=== PATIENT | female | born 1940 | race Caucasian/White ===

== ENCOUNTER 2017-02-03 12:05 | Outpatient (RCR) | payer MEDICARE, MEDICAID ==
[~2017-02-03 12:05] MED LIST: ALLO100T PO; AMLO10TA2 PO; ASPI-983 PO; ATOR40TA70 PO; CLON0.5T3 PO; FURO-125 PO; LEVO88TA54 PO; OLME20TA22 PO; OXYC-471 PO; PANT40TA3 PO; TRAM50TA2 PO; [UNRECOGNIZED DRUG - CODE] PO
[2017-02-03 12:26] LABS: BILIRUBIN,URINE NEGATIVE (NEGATIVE); KETONES,URINE NEGATIVE (NEGATIVE); LEUKOCYTE ESTERASE ,URINE 2+ (NEGATIVE); NITRITE,URINE NEGATIVE (NEGATIVE); PH,URINE 5 (5-9); PROTEIN,URINE NEGATIVE (NEGATIVE); UROBILINOGEN,URINE NORMAL (NORMAL)
== END 2017-03-11 | disposition home or self-care (01) ==
LOC: LAB 12:05
PROVIDERS: ATTEND Family Medicine
DX: N39.0 Urinary tract infection, site not specified (principal)
CPT/HCPCS: 81000

== ENCOUNTER → 2017-02-16 | Outpatient (CLI) | payer MEDICARE, MEDICAID | LOC: LAB 14:23 | PROVIDERS: ATTEND Family Medicine | DX: N39.0 Urinary tract infection, site not specified (principal) | CPT/HCPCS: 87088 ==

== ENCOUNTER 2018-12-05 11:00 | Outpatient (CLI) | payer MEDICARE, MEDICAID ==
[~2018-12-05] VITALS: Ht 170.2 cm; Wt 99.8 kg
[~2018-12-05 11:00] MED LIST changes: -AMLO10TA2 PO; +AMLO10TA7 PO; +CLON0.5T13 PO; -CLON0.5T3 PO; +OLME20TA21 PO; -OLME20TA22 PO
[2018-12-05] MEDS ORDERED: CYCL5TAB PO (12:10)
[2018-12-05] MEDS ORDERED: NAPR500T8 PO (12:10)
[2018-12-05] MEDS ORDERED: NFVALS90T PO (12:10)
[2018-12-05] MEDS ORDERED: SERT50TA9 PO (12:10)
[2018-12-05] MEDS ORDERED: LEVO100T7 PO (12:14)
[2018-12-06] MEDS ORDERED: HYDR-3812 PO (11:28)
== END 2018-12-05 12:14 | disposition home or self-care (01) ==
LOC: PREOP 11:00
PROVIDERS: ATTEND Otolaryngology Otolaryngology/Facial Plastic Surgery
DX: Z01.818 Encounter for other preprocedural examination (principal)

== ENCOUNTER 2018-12-06 07:38 | Day surgery (SDC) | payer MEDICARE, MEDICAID ==
[2018-12-06] VITALS (9 sets, daily range): BP systolic 107–186; BP diastolic 63–95
[~2018-12-06] VITALS: Ht 170.2 cm; Wt 99.8 kg
[~2018-12-06 07:38] MED LIST changes: +CYCL5TAB PO; +LEVO100T7 PO; +NAPR500T8 PO; +NFVALS90T PO; +SERT50TA9 PO
--- NOTE | 2018-12-06 08:14 | Progress Note-Pre Operative ---
Pre-Operative Progress Note H&P Reviewed The H&P was reviewed, patient examined and no changes noted. Date Seen by Provider: Dec 06, 2018 Time Seen by Provider: 08:00 Date H&P Reviewed: Dec 06, 2018 Time H&P Reviewed: 08:00 Pre-Operative Diagnosis: Multiple Facial Lesions MODE CABRALES MD Dec 06, 2018 08:14
[2018-12-06] MEDS ORDERED: LIDOCAINE/EPI 1%-1:100,000 (XYLOCAINE) 20ML ONE (08:25)
[2018-12-06] MEDS: LACTATED RINGERS 1,000 ML IV PRN ×2 (09:07→10:55)
[2018-12-06 09:13] LABS: BASOPHILS % (AUTO) 0 % (0-10); EOSINOPHILS # (AUTO) 0.2 10^3/uL (0.0-0.3); EOSINOPHILS % (AUTO) 3 % (0-10); HEMATOCRIT 40 % (35-52); HEMOGLOBIN 13.5 G/DL (11.5-16.0); LYMPHOCYTES # (AUTO) 2.5 X 10^3 (1.0-4.0); LYMPHOCYTES % (AUTO) 31 % (12-44); MEAN CORPUSCULAR HEMOGLOBIN 31 PG (25-34); MEAN CORPUSCULAR HGB CONC 34 G/DL (32-36); MEAN CORPUSCULAR VOLUME 92 FL (80-99); MEAN PLATELET VOLUME 10.4 FL (7.4-10.4); MONOCYTES # (AUTO) 0.6 X 10^3 (0.0-1.0); MONOCYTES % (AUTO) 8 % (0-12); NEUTROPHILS # (AUTO) 4.7 X 10^3 (1.8-7.8); NEUTROPHILS % (AUTO) 58 % (42-75); PLATELET COUNT 214 10^3/uL (130-400); RED CELL DISTRIBUTION WIDTH 13.9 % (10.0-14.5); WHITE BLOOD COUNT 8.1 10^3/uL (4.3-11.0)
[2018-12-06 09:27] LABS: CALCIUM 10.3 MG/DL (8.5-10.1); CREATININE SERUM 1.03 MG/DL (0.60-1.30); POTASSIUM 3.7 MMOL/L (3.6-5.0)
[2018-12-06] MEDS ORDERED: NEOSTIGMINE 1 MG/ML 5 ML SYRINGE ONE (09:54)
[2018-12-06] MEDS ORDERED: GLYCOPYRROLATE 0.2 MG/ML (ROBINUL) 2 ML VIAL ONE ×3 (09:54→10:32)
[2018-12-06] MEDS ORDERED: ROCURONIUM 10 MG/ML 5 ML SYRINGE IV ONE (09:56)
[2018-12-06] MEDS ORDERED: proPOfol 200 MG/20 ML (DIPRIVAN) VIAL IV ONE (09:56)
[2018-12-06] MEDS ORDERED: LIDOCAINE PF 0.5% 50 ML (XYLOCAINE) VIAL ONE (09:56)
[2018-12-06] MEDS ORDERED: fentaNYL INJECTION 100 MCG/2 ML AMP ONE (09:58)
[2018-12-06] MEDS ORDERED: ONDANSETRON 4 MG/2 ML (SDV) Z0FRAN ONE (09:59)
[2018-12-06] MEDS ORDERED: SEVOFLURANE (ULTANE) 15 ML INHAL SOLN ONE (09:59)
[2018-12-06] MEDS ORDERED: DEXAMETHASONE 10 MG/ML (DECADRON) 1 ML VIAL ONE (09:59)
[2018-12-06] MEDS ORDERED: PHENYLEPHRINE 100 MCG/ML 10 ML (ANESTHESIA) SYR ONE (10:06)
[2018-12-06] MEDS ORDERED: MUPIROCIN 2% OINT 22 GM (BACTROBAN) TUBE ONE (10:17)
[2018-12-06] MEDS ORDERED: BSS 15 ML ONE (10:17)
--- NOTE | 2018-12-06 10:31 | Progress Note-Post Operative ---
Post-Operative Progess Note Surgeon (s)/Analytical Engineer (s) Surgeon MODE CABRALES MD Analytical Engineer n/a Pre-Operative Diagnosis Multiple Facial Lesions Post-Operative Diagnosis same Post-Op Procedure Note Date of Procedure: Dec 06, 2018 Name of Procedure Performed: Excision of Right Lower Eyelid Lesion with Repair, Excision of Left Upper Eyelid Lesion with Repair, Excision of Nasal Tipe Lesion with Repair, Excision of Leftand Right Arm Lesions-with No Repair Description & Findings Description and Findings: n/a Anesthesia Type get Estimated Blood Loss minimal Packing none. Specimen(s) collected/removed right lower eyelid lesion, left upper eyelid lesion and nasal tip lesion for frozen right and left arm lesion to pathology for permanent review MODE CABRALES MD Dec 06, 2018 10:31
[2018-12-06] MEDS ORDERED: ACETAMINOPHEN 325 MG TABLET PO PRN (10:45)
[2018-12-06] MEDS ORDERED: HYDROcodone/APAP 5 MG/325 MG (LORTAB) TAB PO PRN (10:45)
[2018-12-06] MEDS ORDERED: ONDANSETRON 4 MG/2 ML (SDV) Z0FRAN IVP PRN (11:00)
[2018-12-06] MEDS ORDERED: HYDROmorphone 2 MG/ML VIAL (DILAUDID) IV ONE (11:00)
[2018-12-06] MEDS ORDERED: HYDR-3812 PO (11:28)
--- NOTE | 2018-12-06 13:01 | Anesthesia-General Post-Op ---
General Patient Condition Mental Status/LOC: Same as Preop Cardiovascular: Satisfactory Nausea/Vomiting: Absent Respiratory: Satisfactory Pain: Controlled Complications: Absent Post Op Complications Complications None Follow Up Care/Instructions Patient Instructions None needed. Anesthesia/Patient Condition Patient Condition Patient is doing well, no complaints, stable vital signs, no apparent adverse anesthesia problems. No complications reported per nursing. INES MEDRANO CRNA Dec 06, 2018 13:01
== END 2018-12-06 12:45 | disposition home or self-care (01) ==
LOC: SDC 07:38
PROVIDERS: ATTEND Otolaryngology Otolaryngology/Facial Plastic Surgery
DX: C44.1121 Basal cell carcinoma of skin of right upper eyelid, including canthus (principal); C44.1191 Basal cell carcinoma of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 upper eyelid, including canthus; C44.311 Basal cell carcinoma of skin of nose; L91.8 Other hypertrophic disorders of the skin; D22.62 Melanocytic nevi of left upper limb, including shoulder; I10 Essential (primary) hypertension; K21.9 Gastro-esophageal reflux disease without esophagitis; E66.9 Obesity, unspecified; Z68.35 Body mass index [BMI] 35.0-35.9, adult; Z79.899 Other long term (current) drug therapy
CPT/HCPCS: 36415; 80048; 85025; 87081; 88304; 88305; 88331; 93005

== ENCOUNTER → 2019-03-26 | Outpatient (CLI) | payer MEDICARE, MEDICAID ==
[~2019-03-26] MED LIST changes: +HYDR-3812 PO
--- NOTE | 2019-03-26 15:15 | Diagnostic Imaging Report ---
INDICATION: Low back pain, fall five months ago. TIME OF EXAM: 02:25 p.m. FINDINGS: Three views of the lumbar spine were obtained. Curvature and alignment is normal. Vertebral body heights are well maintained. No acute compression fracture is seen. Generalized degenerative disc disease is noted with variable disc space narrowing and marginal spurring, greatest at the L5-S1 level. Abdominal aorta is heavily calcified. IMPRESSION: Lumbar spondylosis. No acute compression fracture is detected. Dictated by: Dictated on workstation # [id number]
--- NOTE | 2019-03-26 15:17 | Diagnostic Imaging Report ---
INDICATION: Low back pain and left hip pain. TIME OF EXAM: 02:26 p.m. FINDINGS: Two views of the left hip were obtained. Femoroacetabular alignment is normal. Joint space is well maintained. The femoral head and neck are intact. No fractures are seen. IMPRESSION: No acute bony abnormality is detected. Dictated by: Dictated on workstation # [id number]
== END ==
LOC: RAD 14:03
PROVIDERS: ATTEND Family Medicine
DX: M47.816 Spondylosis without myelopathy or radiculopathy, lumbar region (principal)
CPT/HCPCS: 72100; 73502

== ENCOUNTER → 2019-08-01 | Outpatient (CLI) | payer MEDICARE, MEDICAID ==
[~2019-08-01] MED LIST changes: -CLON0.5T13 PO; +CLON0.5T4 PO; -TRAM50TA2 PO; +TRM50T PO
--- NOTE | 2019-08-02 12:57 | Diagnostic Imaging Report ---
EXAMINATION: Digital mammogram bilateral screening. The current study was also evaluated with a Computer Aided Detection (CAD) system. 3-D tomosynthesis was also performed and reviewed. INDICATION: Screening. This study was compared to the prior exams of 05/13/2016, 09/06/2015, and 03/03/2015. At this time, there are no current complaints. FINDINGS: The fibroglandular tissue in both breasts is heterogeneously dense. This does limit the sensitivity of this exam. Overall, there does not appear to have been any significant change when compared to the prior study. No primary or secondary sign of malignancy is noted. 3D tomographic images fail to show any sign of malignancy. IMPRESSION: There is no radiographic evidence for malignancy. ACR BI-RADS Category 1: Negative. Result letter will be mailed to the patient. Note: At least 10% of breast cancer is not imaged by mammography. Dictated by: Dictated on workstation # [id number]
== END ==
LOC: RAD 11:01
PROVIDERS: ATTEND Family Medicine
DX: Z12.31 Encounter for screening mammogram for malignant neoplasm of breast (principal)
CPT/HCPCS: 77067

== ENCOUNTER → 2019-10-08 | Outpatient (CLI) | payer MEDICARE, MEDICAID ==
[~2019-10-08] MED LIST changes: +ACHD5005 PO; -HYDR-3812 PO
--- NOTE | 2019-10-08 13:49 | Diagnostic Imaging Report ---
PROCEDURE: CT Sinus w/o Contrast. TECHNIQUE: Multiple contiguous axial images were obtained through the sinuses without the use of intravenous contrast. Coronal reformations were performed. All CT scans use one or more of the following dose optimizing techniques: automated exposure control, MA and/or KvP adjustment based on a patient size and exam type, or iterative reconstruction. INDICATION: Chronic sinusitis. COMPARISON: None FINDINGS: No evidence of mucosal thickening or fluid levels in the paranasal sinuses. The frontal sinuses are hypoplastic. The ostiomeatal complexes are patent. The sphenoethmoid recesses are patent and unremarkable. The mastoid air cells are well pneumatized. The bony nasal septum is deviated to the left. No acute facial fractures. The globes and orbits are symmetric and unremarkable. Included intracranial contents show no acute abnormalities. The included soft tissues of the head are normal in appearance. IMPRESSION: 1. Normal appearance of the paranasal sinuses. No evidence of active sinus disease. 2. Leftward deviation of the bony nasal septum. Dictated by: Dictated on workstation # [id number]
== END ==
LOC: RAD 12:52
PROVIDERS: ATTEND Otolaryngology Otolaryngology/Facial Plastic Surgery
DX: J32.9 Chronic sinusitis, unspecified (principal); J34.2 Deviated nasal septum
CPT/HCPCS: 70486

== ENCOUNTER → 2019-11-07 | Outpatient (CLI) | payer MEDICARE, MEDICAID ==
[2019-11-07 12:26] LABS: RED CELL DISTRIBUTION WIDTH 13.8 % (10.0-14.5); WHITE BLOOD COUNT 6.7 10^3/uL (4.3-11.0)
[2019-11-07 12:35] LABS: ALBUMIN 4.4 GM/DL (3.2-4.5); CHLORIDE 106 MMOL/L (98-107); POTASSIUM 3.6 MMOL/L (3.6-5.0); SODIUM 143 MMOL/L (135-145)
[2019-11-07 12:36] LABS: AMYLASE 77 U/L (25-125)
[2019-11-07 12:37] LABS: CALCIUM 9.5 MG/DL (8.5-10.1)
[2019-11-07 12:38] LABS: GLUCOSE 108 MG/DL (70-105)
[2019-11-07 12:39] LABS: CARBON DIOXIDE 26 MMOL/L (21-32)
[2019-11-07 12:40] LABS: BILIRUBIN,TOTAL 0.7 MG/DL (0.1-1.0)
[2019-11-07 12:41] LABS: ALKALINE PHOSPHATASE 79 U/L (40-136); GFR ESTIMATED > 60
[2019-11-07 12:42] LABS: BUN/CREATININE RATIO 13
[2019-11-07 12:44] LABS: ALANINE AMINOTRANSFERASE 8 U/L (0-55)
== END ==
LOC: LAB 12:12
PROVIDERS: ATTEND Family Medicine
DX: R10.10 Upper abdominal pain, unspecified (principal); R63.4 Abnormal weight loss
CPT/HCPCS: 36415; 80053; 82150; 85027

== ENCOUNTER → 2019-11-08 | Outpatient (CLI) | payer MEDICARE, MEDICAID ==
[~2019-11-08] MED LIST changes: +CATHETER FLUSH 10 ML SYR IV PRN; +HOLD METFORMIN - RECEIVED CONTRAST 20 ML VIAL IV SCH; +IOHEXOL 350 MG/ML 100 ML (OMNIPAQUE 350) VIAL IV ONE; +NS 100 ML (IVPB) BAG IV ONE
--- NOTE | 2019-11-08 15:26 | Diagnostic Imaging Report ---
PROCEDURE: CT abdomen and pelvis with contrast. TECHNIQUE: Multiple contiguous axial images were obtained through the abdomen and pelvis after administration of intravenous contrast. Auto Exposure Controls were utilized during the CT exam to meet ALARA standards for radiation dose reduction. INDICATION: Weight loss, diarrhea. COMPARISON: None available. FINDINGS: The visualized lung bases are clear. The cardiac size is mildly enlarged. No basilar pleural effusion. 0.8 cm enhancing region is noted within the posterior aspect of the right hepatic lobe, series 2, image 25. This becomes isodense on delayed imaging. The liver is otherwise unremarkable. The spleen is unremarkable. The adrenal glands are unremarkable. The pancreas is unremarkable. The gallbladder is unremarkable. Mild atrophy and cortical thinning of the right kidney. At least [id number] stenosis of the origin of the right renal artery. The left kidney is unremarkable. Scattered vascular calcifications within the abdominal aorta and its branch vessels without aneurysmal dilatation of the abdominal aorta. 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 At least mild stenosis involving the origin of the celiac artery. Inferior mesenteric artery is patent. The urinary bladder is unremarkable. The uterus is not visualized, likely surgically absent. No abnormal adnexal mass lesion. Mild colonic diverticulosis without CT evidence of diverticulitis. The appendix is unremarkable. No bowel obstruction or pneumatosis. No significant adenopathy, free air, or free fluid within the abdomen or pelvis. Scattered osseous degenerative changes without acute osseous abnormality. IMPRESSION: 1. 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 2. 0.8 cm enhancing lesion within the peripheral right hepatic lobe. This is favored to simply relate to a transient hepatic arterial defect versus flash filling hemangioma. Additional enhancing mass lesions not totally excluded though felt less likely. Comparison to prior imaging would be beneficial. A follow-up CT of the abdomen with contrast is recommended in three to six months to ensure stability. 3. Cardiomegaly. 4. Colonic diverticulosis without CT evidence of diverticulitis. 5. Mild atrophy of the right kidney which is asymmetrically small when compared to the left. This likely relates to underlying renal artery stenosis. Dictated by: Dictated on workstation # [id number]
== END ==
LOC: RAD 13:54
PROVIDERS: ATTEND Family Medicine
DX: K57.30 Diverticulosis of large intestine without perforation or abscess without bleeding (principal); I51.7 Cardiomegaly; N26.1 Atrophy of kidney (terminal); I70.1 Atherosclerosis of renal artery; K76.9 Liver disease, unspecified; R63.4 Abnormal weight loss
CPT/HCPCS: 74177

== ENCOUNTER → 2019-11-14 | Outpatient (CLI) | payer MEDICARE, MEDICAID ==
[~2019-11-14] MED LIST changes: -CATHETER FLUSH 10 ML SYR IV PRN; -HOLD METFORMIN - RECEIVED CONTRAST 20 ML VIAL IV SCH; -IOHEXOL 350 MG/ML 100 ML (OMNIPAQUE 350) VIAL IV ONE; -NS 100 ML (IVPB) BAG IV ONE
--- NOTE | 2019-11-14 08:39 | Diagnostic Imaging Report ---
INDICATION: Abdominal pain Gallbladder sonography performed in a routine fashion. The liver shows normal echogenicity with no focal lesion. Portal vein is patent with hepatopedal flow. Gallbladder appears unremarkable with no stones or wall thickening. The common bile duct is mildly prominent measuring about 7 mm. There is no intrahepatic biliary dilatation. Visualized portions of the aorta and IVC are normal. The right kidney measured 9.3 cm in length and shows mild hydronephrosis. There is no ascites. IMPRESSION: No gallstones or gallbladder wall thickening. Common bile duct is mildly prominent without intrahepatic dilatation, correlate with laboratory analysis. There is mild hydronephrosis of the right kidney. Dictated by: Dictated on workstation # [id number]
== END ==
LOC: RAD 07:34
PROVIDERS: ATTEND Family Medicine
DX: N13.30 Unspecified hydronephrosis (principal); R10.10 Upper abdominal pain, unspecified
CPT/HCPCS: 76705

== ENCOUNTER → 2019-11-15 | Outpatient (CLI) | payer MEDICARE, MEDICAID | LOC: LAB 12:01 | PROVIDERS: ATTEND Family Medicine | DX: R10.9 Unspecified abdominal pain (principal); R19.7 Diarrhea, unspecified | CPT/HCPCS: 36415; 86677 ==

== ENCOUNTER 2019-11-26 05:48 | Outpatient (RCR) | payer MEDICARE, MEDICAID ==
[~2019-11-26 05:48] MED LIST changes: +ASPI-1238 PO; -ASPI-983 PO
[2019-11-27] MEDS ORDERED: ONDA4TAB11 PO (09:00)
[2019-11-27] MEDS ORDERED: LEVO125T6 PO (09:00)
[2019-11-27] MEDS ORDERED: LOPE-134 PO (09:00)
[2019-11-27] MEDS ORDERED: ACET-2267 PO (09:00)
[2019-11-28] MEDS ORDERED: ASPI-1238 PO (06:28)
[2019-11-28] MEDS ORDERED: CLOP75TA28 PO (06:28)
== END 2020-02-24 | disposition home or self-care (01) ==
LOC: PREOP 05:48 → EDSTATUS 08:45
PROVIDERS: ATTEND Surgery
DX: Z01.818 Encounter for other preprocedural examination (principal)

== ENCOUNTER 2019-11-27 07:57 | Day surgery (SDC) | payer MEDICARE, MEDICAID ==
[~2019-11-27] VITALS: Ht 172 cm; Wt 86.0 kg
[2019-11-27] VITALS (8 sets, daily range): BP systolic 144–166; BP diastolic 60–136
[~2019-11-27 07:57] MED LIST changes: -ASPI-1238 PO; +ASPI-983 PO
--- OUTSIDE RECORDS SUMMARY | 2019-11-27 08:04 | XMS REPORT ---
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 Medications Medication Ingredient Drug Dose Dates Status Sig Sig Care Class(es) (Normalized) (Original) Provid er no Acetaminoph no 12-06-19 Complete no Acetaminophe (no information en/Phenylto information 19 d information n/ Phenyltolx phone) (1 source.) lx (Tension (Tension Headache Headache Reliever Reliever Tab) 1 Each Tab) 1 Each Tablet, 1 Tablet, 1 Each Oral Each Oral Twice A Day Discontinued cyclobenzap cyclobenzap Muscle 5 mg Complete take 1 Cyclobenzap r (no rine rine Relaxant d tablet by ine Hcl 5 Mg ph one) hydrochlori mouth three Tablet 5 Mg de 5 mg times daily ORAL Three oral tablet as needed Times A Day (1 source.) for muscle as needed spasms for Muscle Spasms naproxen Naproxen Nonsteroida 500 mg Complete take 1 Naproxen 50 0 (no 500 mg l d tablet by Mg Tablet.dr phone) delayed Anti-inflam mouth twice 500 Mg ORAL release matory Drug daily as Twice A Day oral tablet needed as needed (1 source.) for Muscle Cramps sertraline Sertraline Serotonin 50 mg Complete take 1 Sertraline (no 50 mg oral Reuptake d tablet by Hcl 50 Mg phone) tablet (1 Inhibitor mouth once Tablet 50 Mg source.) daily ORAL Daily valsartan valsartan Angiotensin 320 mg Complete take 1 Valsartan (no 320 mg oral 2 Receptor d tablet by (Diovan) 320 phon e) tablet (1 Megan mouth once Mg Tab 320 source.) daily Mg ORAL Daily Problems Active Problems Problem Normalized Date Last Normalized Normalized Provider Enrrique beebe Classification Problem(s) Recorded Problem Problem Sta tus Duration Other Abnormal 11-08-2019 - Episodic Active AKANKSHA [facility] V ia nutritional; weight loss DO Jing POLANCO endocrine; and Hospital - metabolic [place] disorders (2 (37877) sources.) 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 CHANTALE HARD [facility] Via visceral s of renal GELDO Jing MELO atherosclerosi artery Hospital - s (1 source.) [place] ([address]250) Nephritis; 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) [place] (02243) Other upper Deviated nasal 10-29-2019 - Episodic Active CANDACE CABRALES [facility] Via respiratory septum , [facility] disease (3 Hospital - sources.) [place] (82795) Other Diarrhea, 11-21-2019 - Episodic Active AKANKSHA [facility] Via gastrointestin unspecified DO Jing POLANCO al disorders Hospital - (2 sources.) [place] (84969) Other skin Disorder of Episodic Active MODE CABRALES [facility] V ia disorders (1 the skin and , [facility] source.) subcutaneous Hospital - tissue, [place] unspecified (37421) Diverticulosis Diverticulosis 11-11-2019 - Chronic Active CHANTALE HARD [facility] Via and of large DO Jing POLANCO diverticulitis intestine Hospital - (1 source.) without [place] perforation or (53983) abscess without bleeding Essential Essential Chronic Active MODE CABRALES [facility] Via hypertension (primary) , MD [facility] (4 sources.) hypertension Hospital - [place] (80485) Esophageal Gastro-esophag Chronic Active MODE CABRALES [facility] Via disorders (4 eal reflux , [facility] sources.) disease Hospital - without [place] esophagitis (62141) Other liver Liver disease, 11-11-2019 - Chronic Active DOROTHEA D [facility] Via diseases (1 unspecified DO Jing POLANCO source.) Hospital - [place] (15530) Other Obesity, Chronic Active MODE CABRALES [facility] Via nutritional; unspecified , [facility] endocrine; and Hospital - metabolic [place] disorders (4 (66966) sources.) Other Other abnormal Episodic Active AKANKSHA [facility] Via screening for and DO Jing POLANCO suspected inconclusive Hospital - conditions findings on [place] (not mental diagnostic (83878) disorders or imaging of infectious breast disease) (10 Translations: sources.) [ UNSPEC ABNORMAL MAMMOGRAM, OTH SCREEN MAMMO-MALIGN NEOPLASM OF SD, ENCNTR SCREEN MAMMOGRAM FOR MALIGNANT NE] Other Other specific Chronic Active MODE MEJÍA [facility] Via non-traumatic joint , [facility] joint derangements Hospital - disorders (1 of right [place] source.) ankle, not (38344) elsewhere classified Spondylosis; Spondylosis Chronic Active AKANKSHA [facility] Via intervertebral without DO Jing POLANCO disc myelopathy or Hospital - disorders; radiculopathy, [place] other back lumbar region (33306) problems (4 sources.) Other diseases Unspecified 11-19-2019 - Episodic Active DOROTHEA D [facility] Via of kidney and hydronephrosis DO Jing POLANCO ureters (4 Hospital - sources.) [place] (72654) Abdominal pain Upper 11-08-2019 - Episodic Active AKANKSHA [facility] Via (7 sources.) abdominal DO Jing POLANCO pain, Hospital - unspecified [place] Translations: (11233) [ UNSPECIFIED ABDOMINAL PAIN] Past or Other Problems Problem Normalized Date Last Normalized Normalized Provider Fa cility Classification Problem(s) Recorded Problem Problem Sta tus Duration 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 [facility] Via (1 source.) carcinoma of , [facility]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 Hospital - upper eyelid, [place] including (46544) canthus Unclassified Basal cell no information no information MODE NORRIS [facility] Via (3 sources.) carcinoma of , [facility]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 Hospital - upper eyelid, [place] including (81347) [place]hus 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 , [facility]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 nose Hospital - (4 sources.) [place] (62547) 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 [facility] Via (1 source.) carcinoma of , [facility] skin of right Hospital - upper eyelid, [place] including (76952) canthus Unclassified Basal cell no information no information MODE NORRIS [facility] Via (3 sources.) carcinoma of , [facility] skin of right Hospital - upper eyelid, [place] including (09799) canthus Other Diarrhea Episodic Completed AKANKSHA [facility] Via gastrointestin DO Jing POLANCO al disorders Hospital - (2 sources.) [place] (53834) Other and Melanocytic Episodic Completed MODE CABRALES [facility] Vi a unspecified nevi of left , [facility] benign upper limb, Hospital - neoplasm (3 including [place] sources.) shoulder (23239) Fracture of Nondisplaced Episodic Completed AKANKSHA [facility] Via lower limb (1 fracture of DO Jing POLANCO source.) lateral [facility] malleolus [facility] left fibula, (57522) initial encounter for closed fracture Fracture of Nondisplaced Episodic Completed AKANKSHA [facility] Via lower limb (4 fracture of DO Jing POLANCO sources.) medial [facility] malleolus [facility] right tibia, (16924) initial encounter for closed fracture Translations: [ DISPLACED OBLIQUE FRACTURE OF SHAFT OF R, DISP FX OF LATERAL MALLEOLUS OF RIGHT FI] External cause Other external no information no information CHANTALE HARD [facility] Via codes: cause status DO Jing POLANCO Unspecified (2 Hospital - sources.) [place] (54644) External cause Other external Episodic Completed MODE TURPINT A [facility] Via codes: cause status , [facility] Unspecified (1 Hospital - source.) [place] (18918) Other skin Other Episodic Completed MODE CABRALES [facility] Via disorders (3 hypertrophic , [facility] sources.) disorders of Hospital - the skin [place] (12533) Other Other long Episodic Completed MODE CABRALES [facility] Via aftercare (4 term (current) , [facility] sources.) drug therapy Hospital - [place] (37651) Other Other Episodic Completed AKANKSHA [facility] Via connective specified soft GELLORIE , DO Ch tissue disease tissue Hospital - (1 source.) disorders [place] () External cause Unspecified no information no information DOROTHEA Chaparro [facility] Via codes: Fall (2 fall, initial DO Jing POLANCO sources.) encounter Hospital [facility] () External cause Unspecified Episodic Completed MODE MEJÍA [facility] Via codes: Fall (1 fall, initial , [facility] source.) encounter Hospital [facility] () Urinary tract Urinary tract Episodic Completed AKANKSHA Not Available infections (14 infection, GELLENDER , DO (68786) sources.) site not specified Procedures The data below is from unstructured sourcesNo known history of procedures.No known history of procedures.No known history of procedures.No known history of procedures.No known history of procedures.No pr ocedure information available.No procedure information available.No procedure in formation available.No procedure information available. Immunizations The data below is from unstructured sourcesNo immunization records.No immunization records.No immunization records.No immunization records.No immunization records.No immunization records.No immunization records. Results Test Name Value Interpretation Reference Range Date Time Fa cility (Normalized) (Normalized) (Medline Reference) laboratory on 2019-11-15 H. pylori Ab Qn 0.74 (no code) 11-15-2019 PENDING LO CATION (S) 08: [facility] (54817) H. pylori IgA Negative (no code) 11-15-2019 PENDING LOCA TION and IgG and IgM 08:0 [facility] (64336) [Interp] laboratory on 2019-11-07 Albumin 4.4 g/dL (NEG) 3.4 - 5.4 g/dL 11-07-2019 PENDING LOCATION [Mass/Vol] 08:-0400 [facility] (03789) ALP [Catalytic 79 U/L (NEG) 44 - 147 U/L 11-07-2019 PEND ING LOCATION activity/Vol] 08:-040 [facility] (87954) ALT [Catalytic 8 U/L (NEG) 4 - 40 U/L 11-07-2019 PENDIN G LOCATION activity/Vol] 08:-0400 [facility] (31145) Amylase 77 U/L (NEG) 40 - 140 U/L 11-07-2019 PENDING L OCATION [Catalytic 08:20-0400 [facility] (83558) activity/Vol] Anion gap 11 mmol/L (NEG) 3 - 11 mmol/L 11-07-2019 PENDING LOCATION [Moles/Vol] 08:20-0400 [facility] (52467) AST [Catalytic 14 U/L (NEG) 10 - 34 U/L 11-07-2019 [facility] LOCATION activity/Vol] 08:20-0400 [facility] (75877) Bilirubin 0.7 mg/dL (NEG) 0.1 - 1.2 mg/dL 11-07-2019 [facility] LOCATION [Mass/Vol] 08:20-0400 [facility] (45784) Calcium 9.5 mg/dL (NEG) 8.5 - 10.2 mg/dL 11-07-2019 [facility] LOCATION [Mass/Vol] 08:20-0400 [facility] (17474) Calcium 9.2 mg/dL (NEG) 8.5 - 10.2 mg/dL 11-07-2019 [facility] LOCATION [Mass/Vol] 08:20-0400 [facility] (60563) Chloride 106 mmol/L (NEG) 95 - 106 mmol/L 11-07-2019 [facility] LOCATION [Moles/Vol] 08:20-0400 [facility] (41865) CO2 [Moles/Vol] 26 mmol/L (NEG) 23 - 29 mmol/L 11-07-2019 P ENDING LOCATION 08:20-0400 [facility] (79865) Creatinine 0.90 mg/dL (NEG) 11-07-2019 PENDING LOCATI ON [Mass/Vol] 08:20-0400 [facility] (16321) Creatinine and > (no code) 11-07-2019 PENDING LOC ATION Glomerular 08:20-0400 [facility] (69511) filtration rate.predicted panel - Serum, Plasma or Blood Erythrocyte 13.8 % (NEG) 11.6 - 14.6 % 11-07-2019 [facility] LOCATION distribution 08:20-0400 [facility] (21635) width (RBC) [Ratio] Glucose 108 mg/dL (H) 60 - 125 mg/dL 11-07-2019 PENDING LOCATION [Mass/Vol] 08:20-0400 [facility] (11295) Hematocrit (Bld) 42 % (NEG) 36.1 - 50.3 % 11-07-2019 P ENDING LOCATION [Volume 08:20-0400 [facility] (67858) fraction] Hemoglobin (Bld) 14.0 g/dL (NEG) 12.1 - 17.2 g/dL 11-07-2019 PENDING LOCATION [Mass/Vol] 08:20-0400 [facility] (64391) MCH (RBC) 31 pg (NEG) 27 - 31 pg 11-07-2019 PENDING LOC ATION [Entitic mass] 08:20-0400 [facility] (01697) MCHC (RBC) 33 g/dL (NEG) 32 - 36 g/dL 11-07-2019 PENDING LOCATION [Mass/Vol] 08:20-0400 [facility] (32207) MCV (RBC) 93 (NEG) 11-07-2019 PENDING LOCATI ON [Entitic vol] 08:20-0400 [facility] (73460) Platelet mean 10.0 (NEG) 11-07-2019 PENDING LOCA TION volume (Bld) 08:20-0400 [facility] (47373) [Entitic vol] Platelets (Bld) 197 10*3/uL (NEG) 150 - 450 11-07-2019 PEND ING LOCATION [#/Vol] 10*3/uL 08:20-0400 [facility] (97212) Potassium 3.6 mmol/L (NEG) 3.7 - 5.2 mmol/L 11-07-2019 PEND ING LOCATION [Moles/Vol] 08:20-0400 [facility] (38275) Protein 7.0 g/dL (NEG) 6.4 - 8.3 g/dL 11-07-2019 PENDING LOCATION [Mass/Vol] 08:20-0400 [facility] (41679) RBC (Bld) 4.50 10*6/uL (NEG) 4.2 - 6.1 11-07-2019 PENDING L OCATION [#/Vol] 10*6/uL 08:20-0400 [facility] (86152) Sodium 143 mmol/L (NEG) 135 - 145 mmol/L 11-07-2019 PEND ING LOCATION [Moles/Vol] 08:20-0400 [facility] (03289) Urea nitrogen 12 mg/dL (NEG) 7 - 20 mg/dL 11-07-2019 PENDI NG LOCATION [Mass/Vol] 08:20-0400 [facility] (33238) Urea 13 mg/mg (no code) 6 - 22 mg/mg 11-07-2019 PENDING L OCATION nitrogen/Creatin 08: [facility] (36921) ine [Mass ratio] WBC (Bld) 6.7 10*3/uL (NEG) 3.5 - 10.5 11-07-2019 PENDING L OCATION [#/Vol] 10*3/uL 08: [facility] () Vital Signs The data below is from unstructured sources Vital Response Date/Time Height (Feet) 5 feet 12:00pm Height (Inches) 7.00 inches 03/08/2016 12:00pm Height (Calculated Centimeters) 170. 329119 cm 03/08/2016 12:00pm Weight (Pounds) 220 pounds 03/08/2016 12:00pm Weight (Ounces) 0.0 oz 0 03/08/2016 12:00pm Weight (Calculated Grams) 15864.322 gm 03/08/2016 12:00pm Weight (Calculated Kilograms) 99.790 322 kilograms 03/08/2016 12:00pm Calculated BMI 36.61 12:00pm Vital Response Date/Time Temperature (Fahrenheit) 97.3 degree s F (97.6 - 99.5) 03/09/2016 2:55pm Temperature (Calculated Celsius) 36. 14840 degrees C (36.4 - 37.5) 03/09/2016 1:30pm Temperature Source Temporal 03/09/2016 2:55pm Pulse Rate (adult) 63 bpm (60 - 90) 03/09/2016 2:55pm Respiratory Rate 16 bpm (12 - 24) 03/09/2016 2:55pm O2 Sat by Pulse Oximetry 97 % (88 - 100) 03/09/2016 2:55pm Blood Pressure 170/84 mm Hg 03/09/2016 2:55pm Blood Pressure Mean 105 mm Hg 03/09/2016 8:21am Pain Numeric Pain Scale 1 2:55pm Pain Intensity 2 2015 1:30pm Height (Feet) 5 feet 8:21am Height (Inches) 7.00 inches 03/09/2016 8:21am Height (Calculated Centimeters) 170. 949181 cm 03/09/2016 8:21am Weight (Pounds) 220 pounds 03/09/2016 8:21am Weight (Ounces) 0.0 oz 0 03/09/2016 8:21am Weight (Calculated Grams) 13644.32 gm 03/09/2016 8:21am Weight (Calculated Kilograms) 99.790 322 kilograms 03/09/2016 8:21am Calculated BMI 34.5 02/11 8:21am Capillary Refill Capillary Refill Less Than 3 Seconds 03/09/2016 8:21am Vital Response Date/Time Height (Feet) 5 feet 11:07am Height (Inches) 7.00 inches 12/05/2018 11:07am Height (Calculated Centimeters) 170. 420429 cm 12/05/2018 11:07am Weight (Pounds) 220 pounds 12/05/2018 11:07am Weight (Ounces) 0.0 oz 0 12/05/2018 11:07am Weight (Calculated Grams) 07316.32 gm 12/05/2018 11:07am Weight (Calculated Kilograms) 99.790 322 kilograms 12/05/2018 11:07am Calculated BMI 34.5 11/11 11:07am Vital Response Date/Time Height (Feet) 5 feet 11:07am Height (Inches) 7.00 inches 12/05/2018 11:07am Height (Calculated Centimeters) 170. 363330 cm 12/05/2018 11:07am Weight (Pounds) 220 pounds 12/05/2018 11:07am Weight (Ounces) 0.0 oz 0 12/05/2018 11:07am Weight (Calculated Grams) 17768.32 gm 12/05/2018 11:07am Weight (Calculated Kilograms) 99.790 322 kilograms 12/05/2018 11:07am Calculated BMI 34.5 11/11 11:07am Interventions No Information Plan of Treatment The data below is from unstructured sources Discharge Date 03/08/16 1:45pm Prescriptions See Medication Section Discharge Date 03/09/16 2:55pm Instructions/Education Provided DIEUDONNE WALSH INSTRUCTIONS POSTOP DR. ZAFUTA-FRACTURE CAST SPLNT Prescriptions See Medication Section Prescriptions See Medication Section Discharge Date 12/05/18 12:14pm Prescriptions See Medication Section Discharge Date 12/05/18 12:14pm Prescriptions See Medication Section Goals No Information Social History No Information Functional Status The data below is from unstructured sourcesNo functional status results.No functional status results.No functional status results.No functional status results.No functional status results.No functional status results.No functional status results.No functional status information avai lable.No functional status information available.No functional status informatio n available.No functional status information available. Mental Status No Information Encounters Encounter Normalized Encounter Encounter Diagnosis Care Provi adin Organization Date Type 02-03-2017 Patient encounter no information no name no or ganization name - 03-11-2017 11-26-2019 Patient encounter no information MARY BANSAL DO (no [facility] Via Jing procedure phone) [facility] (no phone) 11-15-2019 Patient encounter no information AKANKSHA A GELLENDE R DO [facility] Via Jing procedure (no phone) [facility] (no phone) 11-14-2019 Patient encounter no information AKANKSHA A GELLENDE R DO [facility] Via Jing procedure (no phone) [facility] (no phone) 11-08-2019 Patient encounter no information AKANKSHA A GELLENDE R DO [facility] Via Jing procedure (no phone) [facility] (no phone) 11-07-2019 Patient encounter no information AKANKSHA A GELLENDE R DO [facility] Via Jing procedure (no phone) [facility] (no phone) 10-08-2019 Patient encounter no information MODE CABRALES MD (no [facility] Via Jing procedure phone) [facility] (no phone) 08-01-2019 Patient encounter no information AKANKSHA A GELLENDE R DO [facility] Via Jing procedure (no phone) [facility] (no phone) 03-26-2019 Patient encounter no information no name no or ganization name procedure 03-26-2019 Patient encounter no information no name no or ganization name procedure 12-06-2018 Patient encounter no information no name no or ganization name - procedure 12-06-2018 12-06-2018 Patient encounter no information no name no or ganization name - procedure 12-06-2018 12-05-2018 Patient encounter no information MODE bran no organization name - procedure Phone: 12-05-2018 12-04-2018 Patient encounter no information no name no or ganization name procedure 03-12-2017 Patient encounter no information no name no or ganization name procedure 02-16-2017 Patient encounter no information no name no or ganization name procedure 02-03-2017 Patient encounter no information no name no or ganization name - procedure 03-10-2017 06-08-2016 Patient encounter no information no name no or ganization name - procedure 06-09-2016 06-08-2016 Patient encounter no information no name no or ganization name - procedure 06-09-2016 05-13-2016 Patient encounter no information no name no or ganization name procedure 03-09-2016 Patient encounter no information no name no or ganization name - procedure 03-09-2016 08-17-2015 Patient encounter no information no name no or ganization name procedure 04-14-2015 Patient encounter no information no name no or ganization name procedure 03-11-2015 Patient encounter no information no name no or ganization name procedure 03-03-2015 Patient encounter no information no name no or ganization name procedure 10-17-2014 Patient encounter no information no name no or ganization name procedure 07-23-2014 Patient encounter no information no name no or ganization name - procedure 10-15-2014 no information Encounter for other no name no organiz ation name preprocedural examination Medical Equipment No Information Payers Normalized Payer Value Medicare [id number] ([id number]) Advance Directives Directive Response Recor ded Date/Time Advance Directives No 12:00pm Health Care Power of Hotel Front Office Manager No 03/08/16 12:00pm Resuscitation Status Full Code 03/08/16 12:00pm Directive Response Recor ded Date/Time Advance Directives No 8:21am Health Care Power of Hotel Front Office Manager No 03/09/16 8:21am Resuscitation Status Full Code 03/09/16 8:21am Directive Response Recor ded Date/Time Advance Directives No 8:21am Health Care Power of Hotel Front Office Manager No 03/09/16 8:21am Directive Response Recor ded Date/Time Advance Directives No 11:07am Health Care Power of Hotel Front Office Manager No 12/05/18 11:07am Resuscitation Status Full Code 12/05/18 11:07am Discharge Instructions No hospital discharge instructions.No hospital discharge instructions.No hospital discharge instructions.No hospital discharge instructions.Current inpatient/outpatient. Discharge instructions are currently unavailable.No hospital discharge instruction information available. Additional Source Comments This clinical document has been generated using [employer] software that has been certified by the Office of the National Coordinator for Health Information Technology (ONC 15.99.04.3023.Diam.31.00.0.216603) and the National Committee for Occupational Safety And Health Manager (NCQA, as an eMeasure certified technology). FOR RECORDS PERTAINING TO PATIENTS WHO ARE OR HAVE BEEN ENROLLED IN A CHEMICAL D EPENDENCY/SUBSTANCE ABUSE PROGRAM, SOME INFORMATION MAY BE OMITTED. This clinica l summary was aggregated from multiple sources. Caution should be exercised in using it in the provision of clinical care. This summary normalizes information from multiple sources, and as a consequence, information in this document may ma terially change the coding, format and clinical context of patient data. In valorie tion, data may be omitted in some cases. CLINICAL DECISIONS SHOULD BE BASED ON T HE PRIMARY CLINICAL RECORDS. [employer] provides no warranty or guara ntee of the accuracy or completeness of information in this document.The followi ng information is based on time limited clinical information
--- OUTSIDE RECORDS SUMMARY | 2019-11-27 08:05 | XMS REPORT | Continuity of Care Document ---
Author Organization Unknown Address Unknown Phone Unavailable Allergies Active Description Code Type Severity Reaction Onset Reported/Identified Relationship to Patient Clinical Status Yes Sulfa (Sulfonamide Antibiotics) [id number] Drug Allergy Moderate CONFUSED 03/08/2016 Medications There is no data. Problems Date Dx Coded Attending Type Code Diagnosis Diagnosed By COLLIN DE JESUS, AKANKSHA Santiago Ot N39.0 URINARY TRACT INFECTION, SITE NOT SPECIF 09/08/2014 GELLENDER DO, AKANKSHA Santiago Ot 787.91 10/16/2014 GELLENDER DO, AKANKSHA Santiago Ot 787.91 DIARRHEA 03/05/2015 GELLENDER DO, AKANKSHA Santiago Ot V76.12 03/05/2015 GELLENDER DO, AKANKSHA Santiago Ot V76.12 03/12/2015 GELLENDER DO, AKANKSHA Santiago Ot 793.80 03/25/2015 GELLENDER DO, AKANKSHA Santiago Ot V76.12 04/02/2015 GELLENDER DO, AKANKSHA Santiago Ot 793.80 04/06/2015 GELLENDER DO, AKANKSHA Santiago Ot V76.12 04/13/2015 GELLENDER DO, AKANKSHA Santiago Ot 793.80 05/11/2015 GELLENDER DO, AKANKSHA Santiago Ot M79.89 05/25/2015 GELLENDER DO, AKANKSHA Santiago Ot M79.89 08/17/2015 GELLENDER DO, AKANKSHA Santiago Ot 787.91 08/17/2015 GELLENDER DO, AKANKSHA Santiago Ot V76.12 08/17/2015 GELLENDER DO, AKANKSHA Santiago Ot 793.80 08/17/2015 GELLENDER DO, AKANKSHA Santiago Ot M79.89 08/23/2015 GELLENDER DO, AKANKSHA Santiago Ot R92.8 09/08/2015 GELLENDER DO, AKANKSHA Santiago Ot R92.8 09/21/2015 GELLENDER DO, AKANKSHA Santiago Ot R92.8 03/08/2016 GELLENDER DOAKANKSHA Ot 787.91 DIARRHEA 03/08/2016 KYM LÓPEZ, MODE Bhatia Ot S82.54XA NONDISP FX OF MEDIAL MALLEOLUS OF RIGHT 03/08/2016 KYM LÓPEZ, MODE Bhatia Ot W19.XXXA UNSPECIFIED FALL, INITIAL ENCOUNTER 03/08/2016 KYM LÓPEZ, MODE Bhatia Ot Y99.8 OTHER EXTERNAL CAUSE STATUS 03/08/2016 KYM LÓPEZ, MODE Bhatia Ot Z01.818 ENCOUNTER FOR OTHER PREPROCEDURAL EXAMIN 03/09/2016 GELLENDER DO, AKANKSHA Santiago Ot 787.91 DIARRHEA 03/09/2016 GELLENDER DO, AKANKSHA Santiago Ot V76.12 OTH SCREEN MAMMO-MALIGN NEOPLASM OF SD 03/09/2016 GELLENDER DO, AKANKSHA Santiago Ot 793.80 UNSPEC ABNORMAL MAMMOGRAM 03/09/2016 GELLENDER DO, AKANKSHA Santiago Ot M79.89 OTHER SPECIFIED SOFT TISSUE DISORDERS 03/09/2016 GELLENDER DO, AKANKSHA Santiago Ot R92.8 OTH ABN AND INCONCLUSIVE FINDINGS ON DX 03/09/2016 LIZDER DO, AKANKSHA Santiago Ot S82.431A DISPLACED OBLIQUE FRACTURE OF SHAFT OF R 03/09/2016 GELLENDER DO, AKANKSHA Santiago Ot S82.54XA NONDISP FX OF MEDIAL MALLEOLUS OF RIGHT 03/09/2016 GELLENDER DO, AKANKSHA Santiago Ot S82.65XA NONDISP FX OF LATERAL MALLEOLUS OF LEFT 03/09/2016 WILLEMLENDER DO, AKANKSHA Santiago Ot W19.XXXA UNSPECIFIED FALL, INITIAL ENCOUNTER 03/09/2016 COLLIN DO, AKANKSHA Santiago Ot Y99.8 OTHER EXTERNAL CAUSE STATUS 03/09/2016 LIZDER DO, AKANKSHA Santiago Ot 787.91 DIARRHEA 03/09/2016 WILLEMLENDER DO, AKANKSHA Santiago Ot V76.12 OTH SCREEN MAMMO-MALIGN NEOPLASM OF SD 03/09/2016 GELLENDER DO, AKANKSHA Santiago Ot 793.80 UNSPEC ABNORMAL MAMMOGRAM 03/09/2016 GELLENDER DO, AKANKSHA Santiago Ot M79.89 OTHER SPECIFIED SOFT TISSUE DISORDERS 03/09/2016 WILLEMLENDER DO, AKANKSHA Santiago Ot R92.8 OTH ABN AND INCONCLUSIVE FINDINGS ON DX 03/09/2016 WILLEMLENDER DO, AKANKSHA Santiago Ot S82.431A DISPLACED OBLIQUE FRACTURE OF SHAFT OF R 03/09/2016 GELLENDER DO, AKANKSHA Santiago Ot S82.54XA NONDISP FX OF MEDIAL MALLEOLUS OF RIGHT 03/09/2016 GELLENDER DO, AKANKSHA Santiago Ot S82.65XA NONDISP FX OF LATERAL MALLEOLUS OF LEFT 03/09/2016 WILLEMLORIE DE JESUS, AKANKSHA Santiago Ot W19.XXXA UNSPECIFIED FALL, INITIAL ENCOUNTER 03/09/2016 COLLIN DE JESUS, AKANKSHA Santiago Ot Y99.8 OTHER EXTERNAL CAUSE STATUS 03/09/2016 KYM LÓPEZ, MODE Bhatia Ot S82.54XA NONDISP FX OF MEDIAL MALLEOLUS OF RIGHT 03/09/2016 KYM LÓPEZ, MODE Bhatia Ot W19.XXXA UNSPECIFIED FALL, INITIAL ENCOUNTER 03/09/2016 MODE MEJÍA MD Ot Y99.8 OTHER EXTERNAL CAUSE STATUS 03/09/2016 MODE MEJÍA MD Ot Z01.818 ENCOUNTER FOR OTHER PREPROCEDURAL EXAMIN 03/09/2016 MODE MEJÍA MD Ot M24.871 OTH SPECIFIC JOINT DERANGEMENTS OF RIGHT 03/09/2016 MODE MEJÍA MD Ot S82.61XA DISP FX OF LATERAL MALLEOLUS OF RIGHT FI 03/09/2016 MODE MEJÍA MD Ot W19.XXXA UNSPECIFIED FALL, INITIAL ENCOUNTER 03/09/2016 MODE MEJÍA MD Ot Y99.8 OTHER EXTERNAL CAUSE STATUS 03/10/2016 MODE MEJÍA MD Ot M24.871 OTH SPECIFIC JOINT DERANGEMENTS OF RIGHT 03/10/2016 MODE MEJÍA MD Ot S82.61XA DISP FX OF LATERAL MALLEOLUS OF RIGHT FI 03/10/2016 MODE MEJÍA MD Ot W19.XXXA UNSPECIFIED FALL, INITIAL ENCOUNTER 03/10/2016 MODE MEJÍA MD Ot Y99.8 OTHER EXTERNAL CAUSE STATUS 03/24/2016 COLLIN DO, AKANKSHA Santiago Ot S82.431A DISPLACED OBLIQUE FRACTURE OF SHAFT OF R 03/24/2016 COLLIN DO, AKANKSHA Santiago Ot S82.54XA NONDISP FX OF MEDIAL MALLEOLUS OF RIGHT 03/24/2016 COLLIN DO, AKANKSHA Santiago Ot S82.65XA NONDISP FX OF LATERAL MALLEOLUS OF LEFT 03/24/2016 LIZDER DO, AKANKSHA Santiago Ot W19.XXXA UNSPECIFIED FALL, INITIAL ENCOUNTER 03/24/2016 AKANKSHA POLANCO DO Ot Y99.8 OTHER EXTERNAL CAUSE STATUS 04/01/2016 GELLENDER DO, AKANKSHA Santiago Ot S82.431A DISPLACED OBLIQUE FRACTURE OF SHAFT OF R 04/01/2016 GELLENDER DO, AKANKSHA Santiago Ot S82.54XA NONDISP FX OF MEDIAL MALLEOLUS OF RIGHT 04/01/2016 GELLENDER DO, AKANKSHA Santiago Ot S82.65XA NONDISP FX OF LATERAL MALLEOLUS OF LEFT 04/01/2016 GELLENDER DO, AKANKSHA Santiago Ot W19.XXXA UNSPECIFIED FALL, INITIAL ENCOUNTER 04/01/2016 GELLENDER DO, AKANKSHA Pamela Ot Y99.8 OTHER EXTERNAL CAUSE STATUS 05/13/2016 GELLENDER DO, AKANKSHA Pamela Ot R92.8 OTH ABN AND INCONCLUSIVE FINDINGS ON DX 05/16/2016 GELLENDER DO, AKANKSHA Pamela Ot R92.8 OTH ABN AND INCONCLUSIVE FINDINGS ON DX 05/16/2016 GELLENDER DO, AKANKSHA Pamela Ot R92.8 OTH ABN AND INCONCLUSIVE FINDINGS ON DX 06/09/2016 GELLENDER DO, AKANKSHA Santiago Ot N39.0 URINARY TRACT INFECTION, SITE NOT SPECIF 06/09/2016 GELLENDER DO, AKANKSHA Pamela Ot R92.8 OTH ABN AND INCONCLUSIVE FINDINGS ON DX 06/14/2016 GELLENDER DO, AKANKSHA Pamela Ot R92.8 OTH ABN AND INCONCLUSIVE FINDINGS ON DX 02/06/2017 GELLENDER DO, AKANKSHA Santiago Ot N39.0 URINARY TRACT INFECTION, SITE NOT SPECIF 02/17/2017 GELLENDER DO, AKANKSHA Santiago Ot N39.0 URINARY TRACT INFECTION, SITE NOT SPECIF 03/03/2017 GELLENDER DO, AKANKSHA Santiago Ot N39.0 URINARY TRACT INFECTION, SITE NOT SPECIF 03/10/2017 GELLENDER DO, AKANKSHA Santiago Ot N39.0 URINARY TRACT INFECTION, SITE NOT SPECIF 03/11/2017 GELLENDER DO, AKANKSHA Santiago Ot N39.0 URINARY TRACT INFECTION, SITE NOT SPECIF 03/17/2017 GELLENDER DO, AKANKSHA Santiago Ot N39.0 URINARY TRACT INFECTION, SITE NOT SPECIF 03/21/2017 GELLENDER DO, AKANKSHA Santiago Ot N39.0 URINARY TRACT INFECTION, SITE NOT SPECIF 12/03/2018 GELLENDER DO, AKANKSHA Santiago Ot 787.91 DIARRHEA 12/03/2018 GELLENDER DO, AKANKSHA Santiago Ot V76.12 OTH SCREEN MAMMO-MALIGN NEOPLASM OF SD 12/03/2018 GELLENDER DO, AKANKSHA Santiago Ot 793.80 UNSPEC ABNORMAL MAMMOGRAM 12/03/2018 COLLIN DE JESUS, AKANKSHA Santiago Ot M79.89 OTHER SPECIFIED SOFT TISSUE DISORDERS 12/03/2018 COLLIN DE JESUS, AKANKSHA Santiago Ot R92.8 OTH ABN AND INCONCLUSIVE FINDINGS ON DX 12/03/2018 AKANKSHA POLANCO DO Ot S82.431A DISPLACED OBLIQUE FRACTURE OF SHAFT OF R 12/03/2018 COLLIN DE JESUS, AKANKSHA Santiago Ot S82.54XA NONDISP FX OF MEDIAL MALLEOLUS OF RIGHT 12/03/2018 COLLIN DE JESUS, AKANKSHA Santiago Ot S82.65XA NONDISP FX OF LATERAL MALLEOLUS OF LEFT 12/03/2018 CLOLIN DE JESUS, AKANKSHA Santiago Ot W19.XXXA UNSPECIFIED FALL, INITIAL ENCOUNTER 12/03/2018 AKANKSHA POLANCO DO Ot Y99.8 OTHER EXTERNAL CAUSE STATUS 12/03/2018 AKANKSHA POLANCO DO Ot R92.8 OTH ABN AND INCONCLUSIVE FINDINGS ON DX 12/03/2018 AKANKSHA POLANCO DO Ot N39.0 URINARY TRACT INFECTION, SITE NOT SPECIF 12/03/2018 AKANKSHA POLANCO DO Ot N39.0 URINARY TRACT INFECTION, SITE NOT SPECIF 12/05/2018 MODE CABRALES MD Ot Z01.818 ENCOUNTER FOR OTHER PREPROCEDURAL EXAMIN 12/05/2018 MODE CABRALES MD Ot Z01.818 ENCOUNTER FOR OTHER PREPROCEDURAL EXAMIN 12/05/2018 MODE CABRALES MD Ot Z01.818 ENCOUNTER FOR OTHER PREPROCEDURAL EXAMIN 12/06/2018 MODE CABRALES MD Ot C44.1121 BASAL CELL CARCINOMA SKIN/ RIGHT UPPER E 12/06/2018 MODE CABRALES MD Ot C44.1191 BASAL CELL CARCINOMA SKIN/ LEFT UPPER EY 12/06/2018 MODE CABRALES MD Ot C44.311 BASAL CELL CARCINOMA OF SKIN OF NOSE 12/06/2018 MODE CABRALES MD Ot 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, INC 12/06/2018 MODE CABRALES MD Ot E66 .9 OBESITY, UNSPECIFIED 12/06/2018 MODE CABRALES MD Ot I10 ESSENTIAL (PRIMARY) HYPERTENSION 12/06/2018 MODE CABRALES MD Ot K21 .9 GASTRO-ESOPHAGEAL REFLUX DISEASE WITHOUT 12/06/2018 MODE CABRALES MD Ot L91 .8 OTHER HYPERTROPHIC DISORDERS OF THE SKIN 12/06/2018 MODE CABRALES MD Ot L98 .9 DISORDER OF THE SKIN AND SUBCUTANEOUS TI 12/06/2018 MODE CABRALES MD Ot Z68.35 BODY MASS INDEX (BMI) 35.0-35.9, ADULT 12/06/2018 MODE CABRALES MD Ot Z79.899 OTHER NURSING HOME (CURRENT) DRUG THERAPY 12/11/2018 MODE CABRALES MD Ot C44.1121 BASAL CELL CARCINOMA SKIN/ RIGHT UPPER E 12/11/2018 MODE CABRALES MD Ot C44.1191 BASAL CELL CARCINOMA SKIN/ LEFT UPPER EY 12/11/2018 MODE CABRALES MD Ot C44.311 BASAL CELL CARCINOMA OF SKIN OF NOSE 12/11/2018 MODE CABRALES MD Ot 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, INC 12/11/2018 MODE CABRALES MD Ot E66 .9 OBESITY, UNSPECIFIED 12/11/2018 MODE CABRALES MD Ot I10 ESSENTIAL (PRIMARY) HYPERTENSION 12/11/2018 MODE CABRALES MD Ot K21 .9 GASTRO-ESOPHAGEAL REFLUX DISEASE WITHOUT 12/11/2018 MODE CABRALES MD Ot L91 .8 OTHER HYPERTROPHIC DISORDERS OF THE SKIN 12/11/2018 MODE CABRALES MD Ot Z68.35 BODY MASS INDEX (BMI) 35.0-35.9, ADULT 12/11/2018 MODE CABRALES MD Ot Z79.899 OTHER NURSING HOME (CURRENT) DRUG THERAPY 12/13/2018 MODE CABRALES MD Ot C44.1121 BASAL CELL CARCINOMA SKIN/ RIGHT UPPER E 12/13/2018 MODE CABRALES MD Ot C44.1191 BASAL CELL CARCINOMA SKIN/ LEFT UPPER EY 12/13/2018 MODE CABRALES MD Ot C44.311 BASAL CELL CARCINOMA OF SKIN OF NOSE 12/13/2018 MODE CABRALES MD Ot 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, INC 12/13/2018 MODE CABRALES MD Ot E66 .9 OBESITY, UNSPECIFIED 12/13/2018 MODE CABRALES MD Ot I10 ESSENTIAL (PRIMARY) HYPERTENSION 12/13/2018 MODE CABRALES MD Ot K21 .9 GASTRO-ESOPHAGEAL REFLUX DISEASE WITHOUT 12/13/2018 MODE CABRALES MD Ot L91 .8 OTHER HYPERTROPHIC DISORDERS OF THE SKIN 12/13/2018 MODE CABRALES MD Ot Z68.35 BODY MASS INDEX (BMI) 35.0-35.9, ADULT 12/13/2018 KERON LÓPEZ, MODE Bhatia Ot Z79.899 OTHER DI[employer]ER (CURRENT) DRUG THERAPY 03/28/2019 GELLENDER DO, AKANKSHA Santiago Ot M47.816 SPONDYLOSIS W/O MYELOPATHY OR RADICULOPA 04/01/2019 GELLENDER DO, AKANKSHA Santiago Ot M47.816 SPONDYLOSIS W/O MYELOPATHY OR RADICULOPA 04/16/2019 GELLENDER DO, AKANKSHA Santiago Ot M47.816 SPONDYLOSIS W/O MYELOPATHY OR RADICULOPA 04/26/2019 GELLENDER DO, AKANKSHA Santiago Ot M47.816 SPONDYLOSIS W/O MYELOPATHY OR RADICULOPA 08/16/2019 GELLENDER DO, AKANKSHA Santiago Ot Z12.31 ENCNTR SCREEN MAMMOGRAM FOR MALIGNANT NE 09/13/2019 GELLENDER DO, AKANKSHA Santiago Ot Z12.31 ENCNTR SCREEN MAMMOGRAM FOR MALIGNANT NE 10/09/2019 KERON LÓPEZ, MODE P Ot J32 .9 CHRONIC SINUSITIS, UNSPECIFIED 10/09/2019 KERON LÓPEZ, MODE P Ot J34 .2 DEVIATED NASAL SEPTUM 10/09/2019 KERON LÓPEZ, MODE P Ot J32 .9 CHRONIC SINUSITIS, UNSPECIFIED 10/09/2019 KERON LÓPEZ, MODE P Ot J34 .2 DEVIATED NASAL SEPTUM 10/29/2019 KERON LÓPEZ, MODE P Ot J32 .9 CHRONIC SINUSITIS, UNSPECIFIED 10/29/2019 KERON LÓPEZ, MODE P Ot J34 .2 DEVIATED NASAL SEPTUM 11/08/2019 GELLENDER DO, AKANKSHA Santiago Ot R10.10 UPPER ABDOMINAL PAIN, UNSPECIFIED 11/08/2019 GELLENDER DO, AKANKSHA Santiago Ot R63.4 ABNORMAL WEIGHT LOSS 11/11/2019 GELLENDER DO, AKANKSHA Santiago Ot I51.7 CARDIOMEGALY 11/11/2019 GELLENDER DO, AKANKSHA Santiago Ot I70.1 ATHEROSCLEROSIS OF RENAL ARTERY 11/11/2019 GELLENDER DO, AKANKSHA Santiago Ot K57.30 DVRTCLOS OF LG INT W/O PERFORATION OR AB 11/11/2019 GELLENDER DO, AKANKSHA Santiago Ot K76.9 LIVER DISEASE, UNSPECIFIED 11/11/2019 GELLENDER DO, AKANKSHA Santiago Ot N26.1 ATROPHY OF KIDNEY (TERMINAL) 11/11/2019 GELLENDER DO, AKANKSHA Santiago Ot R63.4 ABNORMAL WEIGHT LOSS 11/19/2019 GELLENDER DO, AKANKSHA Santiago Ot N13.30 UNSPECIFIED HYDRONEPHROSIS 11/19/2019 GELLENDER DO, AKANKSHA Santiago Ot R10.10 UPPER ABDOMINAL PAIN, UNSPECIFIED 11/21/2019 GELLENDER DO, AKANKSHA Santiago Ot N13.30 UNSPECIFIED HYDRONEPHROSIS 11/21/2019 GELLENDER DO, AKANKSHA Santiago Ot R10.10 UPPER ABDOMINAL PAIN, UNSPECIFIED 11/21/2019 GELLENDER DO, AKANKSHA Santiago Ot R10.9 UNSPECIFIED ABDOMINAL PAIN 11/21/2019 GELLENDER DO, AKANKSHA Santiago Ot R19.7 DIARRHEA, UNSPECIFIED Procedures There is no data. Results Test Result Range Automated blood complete blood count (he mogram) panel - 03/09/16 07:50 Blood leukocytes automated count (number/volume) 7.0 10*3/uL 4.3-11.0 Blood erythrocytes automated count (number/volume) 3.91 10*6/uL 4.35-5.85 Venous blood hemoglobin measurement (mass/volume) 12.4 g/dL 11.5-16.0 Blood hematocrit (volume fraction) 37 % 35-52 Automated erythrocyte mean corpuscular volume 95 [ foz_us] 80-99 Automated erythrocyte mean corpuscular h emoglobin (mass per erythrocyte) 32 pg 25-34 Automated erythrocyte mean corpuscular h emoglobin concentration measurement (mass/volume) 34 g/dL 32-36 Automated erythrocyte distribution width ratio 13. 4 % 10.0- 14.5 Automated blood platelet count (count/volume) 239 10*3/uL 130-400 Automated blood platelet mean volume measurement 9.9 [foz_us] 7.4-10.4 Whole blood basic metabolic panel - 02/11 01/25 07:50 Serum or plasma sodium measurement (moles/volume) 143 mmol/L 135-145 Serum or plasma potassium measurement (moles/volume) 3.6 mmol/L 3.6-5.0 Serum or plasma chloride measurement (moles/volume) 111 mmol/L 98-107 Carbon dioxide 20 mmol/L 21-32 Serum or plasma anion gap determination (moles/volume) 12 mmol/L 5-14 Serum or plasma urea nitrogen measurement (mass/volume ) 17 mg/dL 7-18 Serum or plasma creatinine measurement (mass/volume) 0.96 mg/dL 0.60-1.30 Serum or plasma urea nitrogen/creatinine mass ratio 18 NRG Serum or plasma creatinine measurement w ith calculation of estimated glomerular filtration rate 57 NRG Serum or plasma glucose measurement (mass/volume) 122 mg/dL 70-105 Serum or plasma calcium measurement (mass/volume) 9.5 mg/dL 8.5-10.1 Methicillin resistant Staphylococcus aur eus (MRSA) screening culture - 03/09/16 08:40 Methicillin resistant Staphylococcus aureus (MRSA) scr eening culture NEG NRG Bacterial urine culture - 06/08/16 15:30 Bacterial urine culture [id number] NRG COLONY COUNT <10,000 NRG Complete urinalysis with reflex to cultu re - 02/03/17 12:20 Urine color determination YELLOW NRG Urine clarity determination CLEAR NR G Urine pH measurement by test strip 5 5-9 Specific gravity of urine by test strip 1.005 1.016-1.022 Urine protein assay by test strip, semi-quantitative NEGATIVE NEGATIVE Urine glucose detection by automated test strip NE GATIVE NEGATIVE Erythrocytes detection in urine sediment by light micr oscopy NEGATIVE NEGATIVE Urine ketones detection by automated test strip NE GATIVE NEGATIVE Urine nitrite detection by test strip NEGATIVE NEGATIVE Urine total bilirubin detection by test strip NEGA TIVE NEGATIVE Urine urobilinogen measurement by automated test strip (mass/volume) NORMAL NORMAL Urine leukocyte esterase detection by dipstick 2+ NEGATIVE Automated urine sediment erythrocyte cou nt by microscopy (number/high power field) NONE NRG Automated urine sediment leukocyte count by microscopy (number/high power field) [HPF] NRG Bacteria detection in urine sediment by light microsco py TRACE NRG Squamous epithelial cells detection in u rine sediment by light microscopy 5-10 NRG Crystals detection in urine sediment by light microsco py NONE NRG Casts detection in urine sediment by light microscopy NONE NRG Mucus detection in urine sediment by light microscopy NEGATIVE NRG Complete urinalysis with reflex to culture NO NRG Other elements identification in urine sediment by lig ht microscopy RARE TRANS EPI NRG Bacterial urine culture - 02/16/17 16:00 Bacterial urine culture [id number] NRG COLONY COUNT 10,000/ML - 100,000/ML NRG FTX;REPORTABLE (AND NOT GROUP D STREP) NRG FREE TEXT ENTRY 3 MIXED GRAM POSITIVE SINGH <10,00 0/ML NRG Complete blood count (CBC) with automate d white blood cell (WBC) differential - 12/06/18 09:00 Blood leukocytes automated count (number/volume) 8.1 10*3/uL 4.3-11.0 Blood erythrocytes automated count (number/volume) 4.38 10*6/uL 4.35-5.85 Venous blood hemoglobin measurement (mass/volume) 13.5 g/dL 11.5-16.0 Blood hematocrit (volume fraction) 40 % 35-52 Automated erythrocyte mean corpuscular volume 92 [ foz_us] 80-99 Automated erythrocyte mean corpuscular h emoglobin (mass per erythrocyte) 31 pg 25-34 Automated erythrocyte mean corpuscular h emoglobin concentration measurement (mass/volume) 34 g/dL 32-36 Automated erythrocyte distribution width ratio 13. 9 % 10.0- 14.5 Automated blood platelet count (count/volume) 214 10*3/uL 130-400 Automated blood platelet mean volume measurement 10.4 [foz_us] 7.4-10.4 Automated blood neutrophils/100 leukocytes 58 % 42-75 Automated blood lymphocytes/100 leukocytes 31 % 12-44 Blood monocytes/100 leukocytes 8 % 0-12 Automated blood eosinophils/100 leukocytes 3 % 0-10 Automated blood basophils/100 leukocytes 0 % 0-10 Blood neutrophils automated count (number/volume) 4.7 10*3 1.8-7.8 Blood lymphocytes automated count (number/volume) 2.5 10*3 1.0-4.0 Blood monocytes automated count (number/volume) 0. 6 10*3 0.0-1.0 Automated eosinophil count 0.2 10*3/uL 0 .0-0.3 Automated blood basophil count (count/volume) 0.0 10*3/uL 0.0-0.1 Whole blood basic metabolic panel - 11/11 12/28 09:00 Serum or plasma sodium measurement (moles/volume) 143 mmol/L 135-145 Serum or plasma potassium measurement (moles/volume) 3.7 mmol/L 3.6-5.0 Serum or plasma chloride measurement (moles/volume) 108 mmol/L 98-107 Carbon dioxide 22 mmol/L 21-32 Serum or plasma anion gap determination (moles/volume) 13 mmol/L 5-14 Serum or plasma urea nitrogen measurement (mass/volume ) 27 mg/dL 7-18 Serum or plasma creatinine measurement (mass/volume) 1.03 mg/dL 0.60-1.30 Serum or plasma urea nitrogen/creatinine mass ratio 26 NRG Serum or plasma creatinine measurement w ith calculation of estimated glomerular filtration rate 52 NRG Serum or plasma glucose measurement (mass/volume) 105 mg/dL 70-105 Serum or plasma calcium measurement (mass/volume) 10.3 mg/dL 8.5-10.1 Methicillin resistant Staphylococcus aur eus (MRSA) screening culture - 12/06/18 09:00 Methicillin resistant Staphylococcus aureus (MRSA) scr eening culture NEG NRG Automated blood complete blood count (he mogram) panel - 11/07/19 12:20 Blood leukocytes automated count (number/volume) 6.7 10*3/uL 4.3-11.0 Blood erythrocytes automated count (number/volume) 4.50 10*6/uL 4.35-5.85 Venous blood hemoglobin measurement (mass/volume) 14.0 g/dL 11.5-16.0 Blood hematocrit (volume fraction) 42 % 35-52 Automated erythrocyte mean corpuscular volume 93 [ foz_us] 80-99 Automated erythrocyte mean corpuscular h emoglobin (mass per erythrocyte) 31 pg 25-34 Automated erythrocyte mean corpuscular h emoglobin concentration measurement (mass/volume) 33 g/dL 32-36 Automated erythrocyte distribution width ratio 13. 8 % 10.0- 14.5 Automated blood platelet count (count/volume) 197 10*3/uL 130-400 Automated blood platelet mean volume measurement 10.0 [foz_us] 7.4-10.4 Comprehensive metabolic panel - 11/07/19 12:20 Serum or plasma sodium measurement (moles/volume) 143 mmol/L 135-145 Serum or plasma potassium measurement (moles/volume) 3.6 mmol/L 3.6-5.0 Serum or plasma chloride measurement (moles/volume) 106 mmol/L 98-107 Carbon dioxide 26 mmol/L 21-32 Serum or plasma anion gap determination (moles/volume) 11 mmol/L 5-14 Serum or plasma urea nitrogen measurement (mass/volume ) 12 mg/dL 7-18 Serum or plasma creatinine measurement (mass/volume) 0.90 mg/dL 0.60-1.30 Serum or plasma urea nitrogen/creatinine mass ratio 13 NRG Serum or plasma creatinine measurement w ith calculation of estimated glomerular filtration rate > NRG Serum or plasma glucose measurement (mass/volume) 108 mg/dL 70-105 Serum or plasma calcium measurement (mass/volume) 9.5 mg/dL 8.5-10.1 Serum or plasma total bilirubin measurement (mass/volu me) 0.7 mg/dL 0.1-1.0 Serum or plasma alkaline phosphatase miky surement (enzymatic activity/volume) 79 U/L 40-136 Serum or plasma aspartate aminotransfera se measurement (enzymatic activity/volume) 14 U/L 5-34 Serum or plasma alanine aminotransferase measurement (enzymatic activity/volume) 8 U/L 0-55 Serum or plasma protein measurement (mass/volume) 7.0 g/dL 6.4-8.2 Serum or plasma albumin measurement (mass/volume) 4.4 g/dL 3.2-4.5 CALCIUM CORRECTED 9.2 mg/dL 8.5-10.1 Serum or plasma amylase measurement (enz ymatic activity/volume) - 11/07/19 12:20 Serum or plasma amylase measurement (enzymatic activit y/volume) 77 U/L 25-125 Serum Helicobacter pylori antibody assay (units/volume) - 11/15/19 12:15 Helicobacter pylori ab [units/volume] in serum 0.74 u[iU]/mL 0.00-0.79 Interpretation of Helicobacter pylori IgG antibody ass ay Negative Negative Encounters ACCT No. Visit Date/Time Discharge Status Pt. Type Provider Facility Loc./Unit Complaint [id number] 11/15/2019 12:01:00 23:59:59 [facility] Outpatient AKANKSHA POLANCO DO [facility] LAB DIARRHEA,ABD [place] [id number] 11/14/2019 07:34:00 23:59:59 [facility] Outpatient AKANKSHA POLANCO DO [facility] RAD UPPER ABD PAIN [id number] 11/08/2019 13:54:00 23:59:59 [facility] Outpatient AKANKSHA POLANCO DO [facility] RAD WEIGHT LOSS,ABD PAIN [id number] 11/07/2019 12:12:00 23:59:59 [facility] Outpatient AKANKSHA POLANCO DO [facility] LAB UPPER ABD PAIN [id number] 10/08/2019 12:52:00 23:59:59 [facility] Outpatient MODE CABRALES MD [facility] RAD CHRONIC SINUSITIS [id number] 08/01/2019 11:01:00 23:59:59 [facility] Outpatient AKANKSHA POLANCO DO [facility] RAD SCREENING Z12.3 1 [id number] 03/26/2019 14:03:00 23:59:59 [facility] Outpatient AKANKSHA POLANCO DO [facility] RAD LEFT HIP PAIN [id number] 12/06/2018 07:38:00 12:45:00 DIS Outpatient MODE CABRALES MD [facility] SDC LESIONS [id number] 12/05/2018 11:00:00 12:14:00 DIS Outpatient MODE CABRALES MD [facility] PREOP LESIONS [id number] 03/12/2017 00:53:00 23:59:59 CLS Preadmit AKANKSHA POLANCO DO [facility] LAB INFECTION [id number] 02/03/2017 12:05:00 00:01:00 DIS Outpatient AKANKSHA POLANCO DO [facility] LAB INFECTION [id number] 02/16/2017 14:23:00 23:59:59 [facility] Outpatient AKANKSHA POLANCO DO [facility] LAB INFECTION [id number] 06/08/2016 14:35:00 07:05:00 DIS Outpatient AKANKSHA POLANCO DO [facility] LAB INFECTION [id number] 05/13/2016 08:37:00 23:59:59 [facility] Outpatient AKANKSHA POLANCO DO [facility] RAD ABNORMAL MAMMO [id number] 03/09/2016 07:29:00 14:55:00 DIS Outpatient KYM LÓPEZ, MODE Bhatia [facility] SDC RIGHT ANKLE FRACTURE [id number] 03/08/2016 11:53:00 13:45:00 DIS Outpatient KYM LÓPEZ, MODE Bhatia [facility] PREOP RIGHT ANKLE FRACTURE [id number] 03/03/2016 12:11:00 23:59:59 CLS Outpatient AKANKSHA POLANCO DO [facility] RAD FALL, HURTS TO WALK [id number] 08/17/2015 13:01:00 23:59:59 CLS Outpatient COLLIN DE JESUS AKANKSHA Pamela [facility] RAD ABNORMAL MAMMO [id number] 04/14/2015 10:31:00 23:59:59 CLS Outpatient AKANKSHA POLANCO DO [facility] RAD LT LEG AND FOOT SWOLLEN [id number] 03/11/2015 12:34:00 23:59:59 CLS Outpatient COLLIN DE JESUS AKANKSHA Pamela [facility] RAD ABNORMAL MAMMO [id number] 03/03/2015 10:19:00 23:59:59 CLS Outpatient WILLEMLORIE DE JESUS AKANKSHA Pamela [facility] RAD SCREENING [id number] 10/17/2014 00:09:00 23:59:59 CLS Preadmit COLLIN DE JESUS AKANKSHA Pmaela [facility] LAB DIARRHEA [id number] 07/23/2014 12:21:00 00:01:00 DIS Outpatient AKANKSHA POLANCO DO [facility] LAB DIARRHEA [id number] 12/03/2019 08:40:00 P EN Preadmit MARY BANSAL DO [facility] ENDO WT LOSS/EPIGASTRIC ABD PAIN/ DIARRHEA [id number] 11/27/2019 10:00:00 P EN Preadmit MYLENE LÓPEZ, REINALDO Dubose [facility] CATH HTN,HLP
[2019-11-27] MEDS ORDERED: NS IV 1000 ML 1,000 ML IV SCH (08:12)
[2019-11-27] MEDS ORDERED: NS IV 1000 ML 1,000 ML ONE (08:13)
[2019-11-27] MEDS ORDERED: HEParin (CATH LAB) 2,000 ML IV ONE (08:13)
[2019-11-27] MEDS ORDERED: LIDOCAINE 1% INJ 20 ML 20 ML VIAL ONE (08:13)
[2019-11-27 08:55] LABS: MEAN PLATELET VOLUME 10.7 FL (7.4-10.4); WHITE BLOOD COUNT 8.1 10^3/uL (4.3-11.0)
[2019-11-27] MEDS ORDERED: LEVO125T6 PO (09:00)
[2019-11-27] MEDS ORDERED: ONDA4TAB11 PO (09:00)
[2019-11-27] MEDS ORDERED: ACET-2267 PO (09:00)
[2019-11-27] MEDS ORDERED: LOPE-134 PO (09:00)
--- NOTE | 2019-11-27 09:00 | NUR ---
SPOKE WITH THE PT AND HER DAUGHTER (SHE HAD HER MED WITH HER) TO COMPLETE THE MED REC VALSARTAN 325MG: RX SAYS 1 TAB DAILY HOWEVER THE PT IS ONLY TAKING TAB DAILY THE FOLLOWING ARE FILL DATES FROM [facility]: 08-12-2019 AMLODIPINE 10MG #90/90DS 10-01-2019 SERTRALINE 50MG #90/90DS 10-10-2019 ALLOPURINOL 100MG #180/90DS 11-11-2019 LEVOTHYROXINE 125MCG #90/90DS 11-13-2019 CLONAZEPAM 0.5MG #90/30DS 11-13-2019 ZOFRAN ODT #15 11-19-2019 VALSARTAN 320MG #30/60DS 11-22-2019 ATORVASTATIN 40MG #90/90DS 11-22-2019 PANTOPRAZOLE 40MG #180/90DS OTC: IMODIUM TYLENOL
--- NOTE | 2019-11-27 09:00 | Diagnostic Imaging Report ---
EXAMINATION: Chest 1 view HISTORY: Preop clearance. COMPARISON: None available. FINDINGS: The lung volumes are normal. No focal consolidation is seen. No large pleural effusion or pneumothorax is seen. The cardiomediastinal silhouette is prominent. No acute osseous abnormality is seen. IMPRESSION: 1. No acute pleuroparenchymal process. Dictated by: Dictated on workstation # [id number]
[2019-11-27 09:02] LABS: INR 0.9 (0.8-1.4); PROTHROMBIN TIME PATIENT 12.5 SEC (12.2-14.7)
[2019-11-27 09:07] LABS: ALBUMIN 4.5 GM/DL (3.2-4.5); BILIRUBIN,TOTAL 0.5 MG/DL (0.1-1.0); CALCIUM 10.2 MG/DL (8.5-10.1); CREATININE SERUM 1.09 MG/DL (0.60-1.30); POTASSIUM 3.7 MMOL/L (3.6-5.0); TOTAL PROTEIN 7.2 GM/DL (6.4-8.2)
[2019-11-27] MEDS ORDERED: MIDAZOLAM 5 MG/5 ML (VERSED) VIAL ONE (09:54)
[2019-11-27] MEDS ORDERED: fentaNYL INJECTION 100 MCG/2 ML AMP ONE (09:54)
[2019-11-27] MEDS ORDERED: HEParin 1000 UNIT/ML (10ML VIAL) FOR BOLUS ONE (10:37)
[2019-11-27] MEDS ORDERED: NITRO DRIP 25000 MCG/D5W 0 ML IV ONE (10:55)
[2019-11-27] MEDS ORDERED: meTOprolol 5 MG/5 ML (LOPRESSOR) VIAL ONE (11:09)
[2019-11-27] MEDS ORDERED: ENALAPRILAT 1.25 MG/1 ML (VASOTEC) 1 ML VIAL IV ONE (11:09)
--- NOTE | 2019-11-27 11:19 | Cardiac Procedure Note-CS/ASA ---
Pre-Procedure Note Pre-Op Procedure Note H&P Reviewed The H&P was reviewed, patient examined and no changes noted. Date H&P Reviewed: Nov 27, 2019 Time H&P Reviewed: 10:00 Conscious Sedation Pre-Proced Time 10:00 ASA Score 3 For ASA 3 and 4: Consider anesthesia and medical clearance. Also, for patients with a history of failed moderate sedation consider anesthesia. Airway Lungs Heart ASA score ASA 1: a normal healthy patient ASA 2: a patient with a mild systemic disease (mid diabetes, controlled hypertension, obesity x ASA 3: a patient with a severe systemic disease that limits activity (angina, COPD, prior Myocardial infarction) ASA 4: a patient with an incapacitating disease that is a constant threat to life (CHF, renal failure) ASA 5: a moribund patient not expected to survive 24 hrs. (ruptured aneurysm) ASA 6: a declared brain- patient whose organs are being harvested. For emergent operations, add the letter E after the classification Mallampati Classification Grade 3 Sedation Plan Analgesia, Amnesia, Plan communicated to team members, Discussed options with patient/fam, Discussed risks with patient/fam The patient is an appropriate candidate to undergo the planned procedure, sedation, and anesthesia. The patient immediately re-assessed prior to indication. REINALDO CHAKRABORTY MD Nov 27, 2019 11:19
[2019-11-27] MEDS ORDERED: CLOPIDOGREL 300 MG (PLAVIX) TABLET PO ONE (11:21)
[2019-11-27] MEDS ORDERED: ASPIRIN 325 MG (5 GR) TABLET ONE (11:21)
--- NOTE | 2019-11-27 11:28 | Peripheral Report ---
Peripheral Report Physician (s)/Nuclear Instructor (s) Physician REINALDO CHAKRABORTY MD Pre-Procedure Diagnosis Pre-Procedure Diagnosis: Renal artery stenosis Post-Procedure Note Procedure Start Date: Nov 27, 2019 Name of Procedure: Abdominal aortogram Selective right renal angiogram Selective left renal angiogram Selective superior mesenteric artery angiogram Right renal artery stent deployment Findings/Procedure Note PROCEDURE NOTE: 79-year-old lady with history of hypertension on multiple medication, has been having recurrent abdominal pain, had CT angiogram of the abdomen which was reported as severe stenosis at the superior mesenteric artery and the right renal artery, she was referred for further evaluation management. After explaining the procedure to the patient, all pros and cons were explained, all questions were answered. The patient signed the consent and then she was placed on the cardiac catheterization laboratory. The patient was placed on the cardiac catheterization laboratory. Groin was prepped SL fashion local anesthesia was used. Sheath placed in the right femoral artery, pigtail catheter advanced to the abdominal aorta and abdominal aortogram was done then I advanced IM diagnostic catheter to the left renal artery and angiogram was done, turned to the right renal artery and intubated of the right renal artery and did angiogram then I was able to intubate the superior mesenteric artery and angiogram was done selectively. At that point I decided to proceed with cryptitis intervention. Patient was given 5000 units of heparin, sheath was upgraded to a 7 Sammarinese sheath. Short IM curve 7 Sammarinese guide was advanced. I placed a BMW wire across the lesion in the right renal artery, try to use 6 balloon without success due to the fact that it was stiff balloon and it straightened the guide and lost my position. I attempted to advance a stork wire through the lesion without success subsequently I removed the stork wire and replaced the BMW wire and used coronary balloon emerge 4 x 12 did multiple inflation to the lesion with improvement of the severe stenosis of the ostial right renal artery then I advanced Herculink elite 6 x 12 stent, postdilated with multiple inflation placed carefully at the ostium of the renal artery with excellent results. At the end of the procedure sheath was removed and closure device was used FINDINGS: Abdominal aortogram showed atherosclerotic disease in the abdominal aorta, severe stenosis in the right renal artery, questionable stenosis in the left renal artery, superior mesenteric artery did not appear to be significantly diseased. Inferior mesenteric artery was normal. Selective superior mesenteric artery angiogram done using IM catheter showing some tortuosity with no significant obstructive disease Selective left renal artery angiogram done using IM diagnostic catheter with 50 percent stenosis at the ostium, nonobstructive disease calcified Selective right renal angiogram showed severe ostial stenosis, calcified, complex intervention as described above with deployment of Herculink 6 x 12 stent expanded to 6.20 with excellent results CONCLUSIONS: 1. Severe right renal artery stenosis with deployment of Herculink 6 x 12 mm at the ostium of the right coronary artery with complex intervention with excellent results. 2. Moderate stenosis at the left renal artery up to 50 percent with calcification. 3. Tortuous superior mesenteric artery with no significant obstructive disease 4. Atherosclerotic plaques in the abdominal aorta. No dissection or aneurysm DISCUSSION AND RECOMMENDATIONS: Patient was started on aspirin and Plavix. Continue with maximizing medical therapy Anesthesia Type: Conscious Sedation Estimated blood loss (mL): 35 ml Contrast Amount: 81 ml Total Radiation Dose: 599 mGy Post-Procedure Diagnosis Post-operative diagnosis: Renal artery stenosis Malignant hypertension Hyperlipidemia REINALDO CHAKRABORTY MD Nov 27, 2019 11:28
[2019-11-27] MEDS ORDERED: PATIENT MAY USE OWN MEDS, ALL PO SCH (11:30)
[2019-11-27] MEDS: NS IV 1000 ML 1,000 ML IV SCH (11:45)
--- NOTE | 2019-11-27 14:30 | NUR ---
This nurse gave report to Farrah OSPINA at 1430 who will be taking over care of the patient att.
--- NOTE | 2019-11-27 14:30 | NUR ---
REPORT RECEIVED FROM BHAVESH JURADO. GROIN SITE ASSESSED TOGETHER. NO CHANGES IN SITE. VITALS HAVE REMAINED STABLE. WILL CONTINUE TO MONITOR.
[2019-11-27] MEDS ORDERED: ONDANSETRON 4 MG (ZOFRAN) ORAL DISSOLVE TAB PO PRN (15:15)
[2019-11-27 16:50] LABS: BILIRUBIN,URINE NEGATIVE (NEGATIVE); CLARITY,URINE CLEAR; COLOR,URINE YELLOW; GLUCOSE, URINE (UA) NEGATIVE (NEGATIVE); KETONES,URINE NEGATIVE (NEGATIVE); LEUKOCYTE ESTERASE ,URINE NEGATIVE (NEGATIVE); NITRITE,URINE NEGATIVE (NEGATIVE); PROTEIN,URINE NEGATIVE (NEGATIVE)
[2019-11-27 16:55] LABS: BACTERIA,URINE TRACE /HPF
[2019-11-27] MEDS: ALLOPURINOL 100 MG (ZYLOPRIM) TAB PO SCH (20:23)
[2019-11-27] MEDS: PANTOPRAZOLE 40 MG (PROTONIX) TAB PO SCH (20:24)
[2019-11-27] MEDS: clonazePAM 0.5 MG (KlonoPIN) TAB PO SCH (20:24)
[2019-11-27] MEDS ORDERED: ACETAMINOPHEN 325 MG TABLET PO PRN (22:30)
[2019-11-28] MEDS: NS IV 1000 ML 1,000 ML IV SCH ×2 (01:02→07:43)
[2019-11-28 04:00] VITALS: BP 148/74
[2019-11-28 05:16] LABS: HEMOGLOBIN 13.1 G/DL (11.5-16.0); MEAN PLATELET VOLUME 10.8 FL (7.4-10.4); RED CELL DISTRIBUTION WIDTH 13.8 % (10.0-14.5); WHITE BLOOD COUNT 7.8 10^3/uL (4.3-11.0)
[2019-11-28 05:34] LABS: CALCIUM 9.8 MG/DL (8.5-10.1); CREATININE SERUM 0.91 MG/DL (0.60-1.30); POTASSIUM 3.9 MMOL/L (3.6-5.0)
[2019-11-28] MEDS ORDERED: CLOP75TA28 PO (06:28)
[2019-11-28] MEDS ORDERED: ASPI-983 PO (06:28)
--- NOTE | 2019-11-28 06:29 | Discharge Inst-Post CATH ---
Discharge Inst-CATH/EP Problems Reviewed?: Yes Post Cardiac Cath/EP D/C Inst Follow Up/Plan Appointment with Dr Oconnor in 2-4 weeks <b>CARDIAC CATH/EP PROCEDURE DISCHARGE INSTRUCTIONS</b> ACTIVITY * Go Home directly and rest. * Limit activity of the leg (or wrist if it was used) for 7 days including aerobics, swimming, jogging, bicycling, etc. * Restrict stair-climbing for 7 days if possible, if not, climb up with your non-cath leg, then bring together on the same step. * Avoid lifting, pushing, pulling or excessive movement of the affected extremity for 7 days. * Customary sexual activity may be resumed after 2 days-use caution not to use a position that strains or causes pain to the affected extremity. * No driving for 24 hours. * NO SMOKING. * Avoid straining for bowel movements for 7 days. * Gentle walking on level ground is allowed. * Returning to work will depend on the type of procedure and the results. Your doctor will discuss this with you. CALL YOUR DOCTOR FOR ANY OF THE FOLLOWING: *If bleeding from the puncture site occurs- Apply gentle pressure to site with clean cloth and call your doctor or EMS. * If a knot or lump forms under the skin, increases in size, or causes pain. * If bruising appears to be worsening or moving further down your leg instead of disappearing. * Temperature above 101 F. CARE OF YOUR GROIN INCISION; * Bruising or purple discoloration of the skin near the puncture site is common. * You may shower only, no bathtub bathing for 5 days. Be careful to avoid slipping as your leg may feel stiff. * If a closure device was used on your femoral artery, please see the attached guide regarding care of the device and your leg. * Leave dressing on FOR 24 hours. CARE OF YOUR WRIST INCISION; * Bruising or purple discoloration of the skin near the puncture site is common. * You may shower. * DO NOT submerge wrist. * Leave dressing on FOR 24 hours. REINALDO OCONNOR MD Nov 28, 2019 06:29
[2019-11-28] MEDS: ALLOPURINOL 100 MG (ZYLOPRIM) TAB PO SCH (07:13)
[2019-11-28] MEDS: PANTOPRAZOLE 40 MG (PROTONIX) TAB PO SCH (07:16)
[2019-11-28] MEDS: clonazePAM 0.5 MG (KlonoPIN) TAB PO SCH (07:17)
[2019-11-28 07:27] VITALS: BP 145/77
--- NOTE | 2019-11-28 08:20 | NUR ---
discharge instructions given and pt iv removed. pt is waiting on daughter in law to pick her up. follow up appt made with dr fernandez's office for january. appt card added to discharge paper work.
[2019-11-28 08:21] VITALS: BP 145/77
--- NOTE | 2019-11-28 08:48 | Cardiology Progress Note ---
Subjective Date Seen by Provider: Nov 28, 2019 Time Seen by Provider: 08:47 Subjective/Events-last exam Patient is sitting in a chair, feeling better, reporting improvement in her symptoms Review of Systems General: No Chills, No Night Sweats, No Fatigue, No Malaise, No Appetite, No Other HEENT: No Head Aches, No Visual Changes, No Eye Pain, No Ear Pain, No Dysphasi a, No Sinus Congestion, No Post Nasal Drip, No Sore Throat, No Other Pulmonary: No Dyspnea, No Cough, No Pleuritic Chest Pain, No Other Cardiovascular: No: Chest Pain, Palpitations, Orthopnea, Paroxysmal Noc. Dyspnea, Edema, Lt Headedness, Other Objective-Cardiology Exam Last Set of Vital Signs Vital Signs 11/28/19 08:21 Temp 35.8 Pulse 68 Resp 18 B/P (MAP) 145/77 Pulse Ox 99 O2 Delivery Room Air Capillary Refill : Less Than 3 Seconds I&O Intake and Output 11/28/19 00:00 Intake Total 1000 ml Balance 1000 ml IV Total 1000 ml General: Alert, Oriented X3, Cooperative HEENT: Atraumatic, PERRLA Neck: Supple, No JVD, No Thyromegaly Lungs: Clear to Auscultation, Normal Air Movement Heart: Regular Rate, Normal S1, Normal S2, No Murmurs Abdomen: Normal Bowel Sounds, Soft, No Tenderness, No Hepatosplenomegaly, No Masses Extremities: No Clubbing, No Cyanosis, No Edema, Normal Pulses, No Tenderness/Swelling Skin: No Rashes, No Breakdown, No Significant Lesion Neuro: Normal Gait, Normal Speech, Strength at 5/5 X4 Ext, Normal Tone, Sensation Intact Psych/Mental Status: Mental Status NL, Mood NL Results Lab Laboratory Tests 11/28/19 04:50 A/P-Cardiology Admission Diagnosis Malignant hypertension Renal artery stenosis Peripheral arterial disease Hyperlipidemia Assessment/Plan Renal artery stenosis, malignant hypertension, status post stenting of the right renal artery with excellent results, the left renal artery has moderate disease. Sick. Mesenteric artery is tortuous with no obstructive disease Hypertension, malignant, on multiple medication, better controlled at this time Hyperlipidemia, monitor lipids Groin is healing well, educated on taking aspirin and Plavix. Will discharge home and arrange for follow-up as an outpatient REINALDO CHAKRABORTY MD Nov 28, 2019 8:48 am
[2019-11-28] MEDS ORDERED: SERTRALINE 50 MG (ZOLOFT) TABLET PO SCH (09:00)
[2019-11-28] MEDS ORDERED: amLODIPine 10 MG (NORVASC) TAB PO SCH (09:00)
[2019-11-28] MEDS ORDERED: ASPIRIN E.C. 81 MG (ECOTRIN) TAB PO SCH (09:00)
[2019-11-28] MEDS ORDERED: LEVOTHYROXINE 125 MCG (LEVOTHROID) TABLET PO SCH (09:00)
[2019-11-28] MEDS ORDERED: CLOPIDOGREL 75 MG (PLAVIX) TABLET PO SCH (09:00)
== END 2019-11-28 09:00 | disposition home or self-care (01) ==
LOC: CATH 07:57 → ICU 11:40 → CSD 16:34 → CATH 11-28 09:00
PROVIDERS: ATTEND Internal Medicine Cardiovascular Disease
DX: I70.1 Atherosclerosis of renal artery (principal); I10 Essential (primary) hypertension; I70.0 Atherosclerosis of aorta; Z79.02 Long term (current) use of antithrombotics/antiplatelets; Z79.82 Long term (current) use of aspirin; Z88.2 Allergy status to sulfonamides; Z79.899 Other long term (current) drug therapy; Z79.891 Long term (current) use of opiate analgesic; E78.2 Mixed hyperlipidemia; Z90.710 Acquired absence of both cervix and uterus; Z87.891 Personal history of nicotine dependence; I77.1 Stricture of artery; I73.9 Peripheral vascular disease, unspecified; E03.9 Hypothyroidism, unspecified
CPT/HCPCS: 36252; 37236; 71045; 75726; 80048; 80053; 80061; 81000; 85027 ×2; 85610; 85730; 87081; C1725 ×2; C1876; C1887; C1894 ×2; 36415; 75625

== ENCOUNTER 2020-03-13 05:33 | Outpatient (RCR) | payer MEDICAID, MEDICARE ==
[~2020-03-13] VITALS: Ht 172.7 cm; Wt 85.9 kg
[~2020-03-13 05:33] MED LIST changes: +ACET-2267 PO; +ASPI-1238 PO; -ASPI-983 PO; +CLOP75TA28 PO; +LEVO125T6 PO; +LOPE-134 PO; +ONDA4TAB11 PO; -PANT40TA3 PO; +PANT40TA52 PO
== END 2020-03-13 08:54 | disposition home or self-care (01) ==
LOC: PREOP 05:33
PROVIDERS: ATTEND Surgery
DX: Z01.812 Encounter for preprocedural laboratory examination (principal); R19.7 Diarrhea, unspecified; R10.13 Epigastric pain; R63.4 Abnormal weight loss; Z20.828 Contact with and (suspected) exposure to other viral communicable diseases
CPT/HCPCS: 87635

== ENCOUNTER 2020-03-17 08:24 | Day surgery (SDC) | payer MEDICARE, MEDICAID ==
[~2020-03-17] VITALS: Ht 172.7 cm; Wt 85.9 kg
[2020-03-17] MEDS ORDERED: LACTATED RINGERS 1,000 ML IV ONE (08:25)
[2020-03-17 08:28] VITALS: BP 162/69
[2020-03-17] MEDS ORDERED: LACTATED RINGERS 1,000 ML IV STA (08:30)
[2020-03-17] MEDS ORDERED: PROPOFOL INJECTION 50 ML IV ONE (08:52)
[2020-03-17] MEDS ORDERED: MIDAZOLAM 2 MG/2 ML (VERSED) VIAL ONE (08:52)
[2020-03-17 09:50] VITALS: BP 158/74
[2020-03-17 09:55] VITALS: BP 160/72
[2020-03-17 10:00] VITALS: BP 160/72
--- NOTE | 2020-03-17 10:01 | Anesthesia-General Post-Op ---
MAC Patient Condition Mental Status/LOC: Same as Preop Cardiovascular: Satisfactory Nausea/Vomiting: Absent Respiratory: Satisfactory Pain: Controlled Complications: Absent Post Op Complications Complications None Follow Up Care/Instructions Patient Instructions None needed. Anesthesiology Discharge Order Discharge Order Patient is doing well, no complaints, stable vital signs, no apparent adverse anesthesia problems. No complications reported per nursing. WERNER VILLAREAL CRNA Mar 17, 2020 10:01
--- NOTE | 2020-03-17 10:02 | Anesthesia-General Post-Op ---
General Patient Condition Mental Status/LOC: Same as Preop Cardiovascular: Satisfactory Nausea/Vomiting: Absent Respiratory: Satisfactory Pain: Controlled Complications: Absent Post Op Complications Complications None Follow Up Care/Instructions Patient Instructions None needed. Anesthesia/Patient Condition Patient Condition Patient is doing well, no complaints, stable vital signs, no apparent adverse anesthesia problems. No complications reported per nursing. WERNER VILLAREAL CRNA Mar 17, 2020 10:02
--- NOTE | 2020-03-17 10:04 | Progress Note-Post Operative ---
Post-Operative Progess Note Surgeon (s)/Operations Administrative Assistant (s) Surgeon MARY BANSAL DO Operations Administrative Assistant: na Pre-Operative Diagnosis diarrhea, epigastric abd pain, wt loss Post-Operative Diagnosis gastric healing ulcer, gastritis, colon polyps, diverticulosis, internal hemorrhroids Procedure & Operative Findings Date of Procedure 03/17/20 Procedure Performed/Findings egd c biopsies, colonoscopy c hot bx polypectomy x 4 and cold rectal biopsies Anesthesia Type per milieu counselor Estimated Blood Loss Estimated blood loss (mL): none Specimens/Packing Specimens Removed antrum, healing ulcer, ge, colon polyps, rectal bx MARY BANSAL DO Mar 17, 2020 10:04
[2020-03-17] MEDS ORDERED: SUCR1TAB36 PO (10:05)
--- NOTE | 2020-03-17 10:05 | Discharge Inst-Simple/Standard ---
Discharge Inst-Standard Discharge Medications New, Converted or Re-Newed RX: Transmitted to Pharmacy Patient Instructions/Follow Up Plan of Care/Instructions/FU: 2-3 weeks Ayesha Activity as Tolerated: Yes Discharge Diet: Regular Diet (high fiber, gastric ulcer diet) MARY BANSAL DO Mar 17, 2020 10:05
[2020-03-17 10:27] VITALS: BP 155/70
--- NOTE | 2020-03-17 11:04 | OPERATIVE REPORT ---
DATE OF SERVICE: 03/17/2020 PREOPERATIVE DIAGNOSES: Diarrhea, epigastric abdominal pain, weight loss. POSTOPERATIVE DIAGNOSES: Gastric healing ulcer, gastritis, colon polyps, diverticulosis and internal hemorrhoids. PROCEDURE: EGD with biopsies, colonoscopy with hot biopsy polypectomy x4 and cold rectal biopsies. SURGEON: Pato Hodge DO ANESTHESIA: Per SHIPPING CLERK CRATING. ESTIMATED BLOOD LOSS: None. COMPLICATIONS: None. SPECIMENS: Antrum, healing ulcer lesser curvature, colon polyps, rectal biopsies. INDICATIONS: The patient is a 79-year-old female with epigastric abdominal pain, diarrhea and some weight loss. She understands risks and benefits of procedures for further evaluation. Risks and benefits were discussed and the patient wishes to proceed. Consent was signed in the chart. DESCRIPTION OF PROCEDURE: The patient was taken to the endoscopy suite, placed in left lateral recumbent position. Timeout was performed. Scope was inserted in mouth, down the esophagus and into the stomach and into the duodenum. There were no polyps, masses or ulcerations within the duodenum. Scope was slowly retracted back into the stomach where it was further insufflated. Gastritis changes were present. Biopsy of the antrum was obtained. There was also a larger healing ulcer along the lesser curvature of the stomach. Biopsies of this area was obtained as well. Scope was retroflexed noting no other pathology. Scope was returned to its normal position, slowly withdrawn to distal esophagus. Biopsy of the GE junction was obtained. Scope was then slowly retracted back to completely remove noting no other pathology. Digital rectal exam was performed noting internal hemorrhoids. No palpable polyps, masses or ulcerations. Scope was inserted in the rectum and advanced all the way to cecum with minimal difficulty. Prep was adequate. Scope was then slowly retracted back. There were no polyps, masses or ulcerations within the cecum. In the ascending colon, a small polyp was present, on which hot biopsy polypectomy was performed. Scope was then continuously retracted back. In transverse colon, there were 3 small polyps, on which hot biopsy polypectomies were performed. Scope was then retracted back. There was some diverticulosis throughout the sigmoid colon. Once in the rectum, a couple of cold biopsies were obtained to evaluate. Scope was retroflexed noting no other pathology. Scope was returned to its normal position, slowly withdrawn until completely removed. The patient tolerated procedure well without any complications, taken to recovery room in stable condition. RECOMMENDATIONS: The patient will continue on Protonix b.i.d. We will add Carafate 1 gram four times a day. We will follow up on biopsies. Any changes in condition, she should be reevaluated at that time. Further recommendations pending biopsy results. Job ID: [id number] DocumentID: [id number] Dictated Date: 03/17/2020 10:10:17 Keeper Head Date: 03/17/2020 11:03:51 Dictated By: DO TATO CRUZ
== END 2020-03-17 10:30 | disposition home or self-care (01) ==
LOC: ENDO 08:24
PROVIDERS: ATTEND Surgery
DX: D12.2 Benign neoplasm of ascending colon (principal); D12.3 Benign neoplasm of transverse colon; K21.00 Gastro-esophageal reflux disease with esophagitis, without bleeding; K57.30 Diverticulosis of large intestine without perforation or abscess without bleeding; K64.8 Other hemorrhoids; K29.70 Gastritis, unspecified, without bleeding; I10 Essential (primary) hypertension; I25.10 Atherosclerotic heart disease of native coronary artery without angina pectoris; F41.9 Anxiety disorder, unspecified; K21.9 Gastro-esophageal reflux disease without esophagitis; E03.9 Hypothyroidism, unspecified; Z79.899 Other long term (current) drug therapy; Z88.2 Allergy status to sulfonamides
CPT/HCPCS: 88305; 88342

== ENCOUNTER 2020-03-25 03:04 | Inpatient (IN) | payer MEDICARE, MEDICAID ==
[~2020-03-25] VITALS: Ht 170.2 cm; Wt 99.7 kg
[2020-03-25] VITALS (10 sets, daily range): BP systolic 108–159; BP diastolic 54–68
[~2020-03-25 03:04] MED LIST changes: +SUCR1TAB36 PO
[2020-03-25 03:42] LABS: BASOPHILS % (AUTO) 1 % (0-10); EOSINOPHILS # (AUTO) 0.3 10^3/uL (0.0-0.3); EOSINOPHILS % (AUTO) 3 % (0-10); HEMATOCRIT 32 % (35-52); HEMOGLOBIN 10.4 g/dL (11.5-16.0); LYMPHOCYTES # (AUTO) 2.2 10^3/uL (1.0-4.0); LYMPHOCYTES % (AUTO) 29 % (12-44); MEAN CORPUSCULAR HEMOGLOBIN 31 pg (25-34); MEAN CORPUSCULAR HGB CONC 33 g/dL (32-36); MEAN CORPUSCULAR VOLUME 95 fL (80-99); MEAN PLATELET VOLUME 10.4 fL (9.0-12.2); MONOCYTES # (AUTO) 0.6 10^3/uL (0.0-1.0); MONOCYTES % (AUTO) 8 % (0-12); NEUTROPHILS # (AUTO) 4.5 10^3/uL (1.8-7.8); NEUTROPHILS % (AUTO) 59 % (42-75); PLATELET COUNT 200 10^3/uL (130-400); WHITE BLOOD COUNT 7.6 10^3/uL (4.3-11.0)
[2020-03-25] MEDS ORDERED: PANTOPRAZOLE 40 MG (PROTONIX) VIAL IV ONE (03:45)
--- NOTE | 2020-03-25 03:45 | NUR ---
Pt arrives by EMS after having loose bloody stools at home; pt reports she had a dark brown/black BM earlier last night and then started having bloody stools. Pt reports she had an upper and lower GI scope last wk. Pt reports that she has some abdominal pain but denies vomiting. ERP to room for eval. Pt to monitor; labs drawn. 2nd IV started. Will continue to monitor.
--- NOTE | 2020-03-25 03:46 | ED GI ---
General Chief Complaint: Rect Problems Stated Complaint: RECTAL BLEED Nursing Triage Note: Pt here with rectal bleeding; states it started after having a dark brown/black stool earlier last night. Sepsis Screen: No Definite Risk Source of Information: Patient Exam Limitations: No Limitations History of Present Illness Date Seen by Provider: Mar 25, 2020 Time Seen by Provider: 03:20 Initial Comments Patient is a 80 year old female that presents to the ED via EMS from home for rectal bleeding. She had one episode of dark tarry stool followed by bright red blood per rectum. She reports having had EGD done last week that showed ulcers and she had a colonoscopy where she had several polyps removed. Patient says that she is on blood thinners. Patient says that she feels clammy is cold and has epigastric abdominal pain.She denies fever, chest pain, shortness of breath, cough, and diarrhea. Timing/Duration: 1-3 Hours Severity/Quality: Moderate, Aching Location: Epigastric Activities at Onset: None Associated Symptoms: No Chest Pain; Diaphoresis, Fever/Chills, Fatigue; No Headache, No Shortness of Air Allergies and Home Medications Allergies Coded Allergies: Sulfa (Sulfonamide Antibiotics) (Verified Allergy, Intermediate, CONFUSED, 03/08/16) Home Medications Acetaminophen 500 Mg Tablet, 1,000 MG PO Q8H PRN for PAIN-MILD (1-4), (Reported) Allopurinol 100 Mg Tablet, 100 MG PO BID, (Reported) Amlodipine Besylate 10 Mg Tablet, 10 MG PO DAILY, (Reported) Aspirin 81 Mg Tablet.dr, 81 MG PO DAILY Prescribed by: REINALDO CHAKRABORTY on 11/28/19627 Atorvastatin Calcium 40 Mg Tablet, 40 MG PO HS, (Reported) Clonazepam 0.5 Mg Tablet, 0.5 MG PO TID, (Reported) Clopidogrel Bisulfate 75 Mg Tablet, 75 MG PO DAILY Prescribed by: REINALDO CHAKRABORTY on 11/28/19627 Levothyroxine Sodium 125 Mcg Tablet, 125 MCG PO DAILY, (Reported) Loperamide HCl 2 Mg Tablet, 2 MG PO DAILY PRN for DIARRHEA, (Reported) Ondansetron 4 Mg Tab.rapdis, 4 MG PO TID PRN for NAUSEA/VOMITING-1ST LINE, (Reported) Pantoprazole Sodium 40 Mg Tablet.dr, 40 MG PO BID, (Reported) Sertraline HCl 50 Mg Tablet, 50 MG PO DAILY, (Reported) Sucralfate 1 Gm Tablet, 1 GM PO QID Prescribed by: MARY BANSAL on 03/17/20 1005 Valsartan 320 Mg Tab, 160 MG PO DAILY, (Reported) TAKES OF A 320MG TAB Patient Home Medication List Home Medication List Reviewed: Yes Review of Systems Review of Systems Constitutional: chills, diaphoresis; No fever Respiratory: Denies Cough, Denies Shortness of Air Cardiovascular: Denies Chest Pain, Denies Edema, Denies Irregular Heart Rate; Lightheadedness; Denies Palpitations Gastrointestinal: Abdominal Pain (epigastric), Blood Streaked Stools, Constipated, Nausea, Rectal Bleeding Skin: change in color (collar), other (clammy) Psychiatric/Neurological: No Symptoms Reported All Other Systems Reviewed Negative Unless Noted: Yes Past Yhduiem-Cjxzgz-Mlzyio Hx Past Med/Social Hx: Reviewed Nursing Past Med/Soc Hx Patient Social History Alcohol Use: Denies Use Recreational Drug Use: No Smoking Status: Former Smoker Former Smoker, Quit: Jun 12, 1984 2nd Hand Smoke Exposure: No Recent Foreign Travel: No Contact w/Someone Who Travel: No Recent Infectious Disease Expo: No Recent Hopitalizations: No Immunizations Up To Date Tetanus Booster (TDap): Unknown Date of Pneumonia Vaccine: Feb 12, 2018 Date of Influenza Vaccine: Feb 11, 2019 Seasonal Allergies Seasonal Allergies: Yes Past Medical History Surgeries: Yes (ANKLE FX, ) Hysterectomy Respiratory: No Cardiac: Yes Coronary Artery Disease, High Cholesterol, Hypertension Neurological: Yes Headaches /Migraines Reproductive Disorders: No 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 Sexually Transmitted Disease: Yes HIV/AIDS: No Genitourinary: No Gastrointestinal: Yes (wt loss, ) Gastroesophageal Reflux, Chronic Diarrhea Musculoskeletal: No Endocrine: Yes Hypothyroidsim HEENT: Yes Cataract Loss of Vision: Bilateral Hearing Impairment: Hard of Hearing, Bilateral Hearing Aide Cancer: No Psychosocial: Yes Anxiety Integumentary: No Blood Disorders: No Adverse Reaction/Blood Tranf: No (N/A) Family Medical History Reviewed Nursing Family Hx Physical Exam Vital Signs Vital Signs - First Documented 03/25/20 03:21 Temp 37.2 Pulse 54 Resp 18 B/P (MAP) 156/56 (89) Pulse Ox 95 O2 Delivery Room Air Capillary Refill : Less Than 3 Seconds Height/Weight/BMI Height: 5'7.00" Weight: 220lbs. 0.0oz. [id number]; 30.00 BMI Method: General Appearance: mild distress, obese HEENT: PERRL/EOMI, pharynx normal (moist mucous membranes), pale conjunctivae (R), pale conjunctivae (L) Respiratory: chest non-tender, lungs clear, normal breath sounds, no respirato ry distress, no accessory muscle use Cardiovascular: no edema, no gallop, no JVD, no murmur, bradycardia Peripheral Pulses: 2+ Radial Pulses (R), 2+ Radial Pulses (L) Gastrointestinal: soft, no organomegaly, no pulsatile mass, abnormal bowel sounds (active bowel sounds); No distended, No guarding, No rebound; tenderness (epigastric ) Rectal: normal rectal tone, black stool, blood streaked stool, heme positive stool Extremities: non-tender, normal inspection Back: normal inspection, no CVA tenderness, no vertebral tenderness Neurologic/Psychiatric: alert, oriented x 3 Skin: cool, damp Progress/Results/Core Measures Results/Orders Lab Results Laboratory Tests Test 03/25/20 03:10 Range/Units White Blood Count 7.6 4.3-11.0 10^3/uL Red Blood Count 3.32 L 3.80-5.11 10^6/uL Hemoglobin 10.4 L 11.5-16.0 g/dL Hematocrit 32 L 35-52 % Mean Corpuscular Volume 95 80-99 fL Mean Corpuscular Hemoglobin 31 25-34 pg Mean Corpuscular Hemoglobin Concent 33 32-36 g/dL Red Cell Distribution Width 13.7 10.0-14.5 % Platelet Count 200 130-400 10^3/uL Mean Platelet Volume 10.4 9.0-12.2 fL Immature Granulocyte % (Auto) 1 % Neutrophils (%) (Auto) 59 42-75 % Lymphocytes (%) (Auto) 29 12-44 % Monocytes (%) (Auto) 8 0-12 % Eosinophils (%) (Auto) 3 0-10 % Basophils (%) (Auto) 1 0-10 % Neutrophils # (Auto) 4.5 1.8-7.8 10^3/uL Lymphocytes # (Auto) 2.2 1.0-4.0 10^3/uL Monocytes # (Auto) 0.6 0.0-1.0 10^3/uL Eosinophils # (Auto) 0.3 0.0-0.3 10^3/uL Basophils # (Auto) 0.0 0.0-0.1 10^3/uL Immature Granulocyte # (Auto) 0.0 0.0-0.1 10^3/uL Sodium Level 143 135-145 MMOL/L Potassium Level 3.4 L 3.6-5.0 MMOL/L Chloride Level 110 H 98-107 MMOL/L Carbon Dioxide Level 22 21-32 MMOL/L Anion Gap 11 5-14 MMOL/L Blood Urea Nitrogen 25 H 7-18 MG/DL Creatinine 0.84 0.60-1.30 MG/DL Estimat Glomerular Filtration Rate > 60 BUN/Creatinine Ratio 30 Glucose Level 121 H 70-105 MG/DL Calcium Level 8.6 8.5-10.1 MG/DL Corrected Calcium 8.9 8.5-10.1 MG/DL Total Bilirubin 0.3 0.1-1.0 MG/DL Aspartate Amino Transf (AST/SGOT) 16 5-34 U/L Alanine Aminotransferase (ALT/SGPT) 18 0-55 U/L Alkaline Phosphatase 72 40-136 U/L Total Protein 5.8 L 6.4-8.2 GM/DL Albumin 3.6 3.2-4.5 GM/DL My Orders Orders - GRANT HINTON MD Cbc With Automated Diff (03/25/20 03:29) Comprehensive Metabolic Panel (03/25/20 03:29) Type And Screen (03/25/20 03:29) Ed Iv/Invasive Line Start (03/25/20 03:38) Fecal Occult Bedside (03/25/20 03:38) Pantoprazole Injection (Protonix Injecti (03/25/20 03:45) Ondansetron Injection (Zofran Injectio (03/25/20 04:00) Medications Given in ED Current Medications Medications Dose Ordered Sig/Brian Route Start Time Stop Time Status Last Admin Dose Admin Ondansetron HCl 4 mg ONCE ONCE IVP 03/25/20 04:00 03/25/20 04:01 DC 03/25/20 03:59 4 MG Pantoprazole 40 mg ONCE ONCE IV 03/25/20 03:45 03/25/20 03:46 DC 03/25/20 03:48 40 MG Vital Signs/I&O 03/25/20 03:21 Temp 37.2 Pulse 54 Resp 18 B/P (MAP) 156/56 (89) Pulse Ox 95 O2 Delivery Room Air Blood Pressure Mean: 89 Progress Progress Note : Progress Note I seen and evaluated this 80-year-old female who presents to ED with rectal bleeding. She has had one bowel movement with blood since arriving. Workup for GI bleed. Labs: CBC, CMP, type and screen. Meds: Zofran, Protonix. Will consult Dr. Bansal. 0440: I did discuss the case with Dr. Menezes related to GI bleed. Patient has had approximately 3 g hemoglobin drop since last lab in November. She typically runs 13-14 and currently is in attendance. Given that she's had several bloody stools including one here, admission for observation to evaluate further bleeding is reasonable. Dr. Menezes accepts patient for admission, observation status for Dr. Bansal and will check out to him in the morning. He is not requesting consult currently. I did discuss the findings and concerns with the patient and she agrees to admission. Admit, observation status. Currently nausea is improved after Zofran and she has not had further significant bloody stools. Departure Communication (Admissions) Time/Spoke to Admitting Phy: 04:37 Impression Primary Impression: GI bleed Qualified Codes: K92.2 - Gastrointestinal hemorrhage, unspecified Disposition: ADMITTED INPATIENT Condition: Stable Admissions Decision to Admit Reason: Admit from ER (General) Decision to Admit/Date: Mar 25, 2020 Time/Decision to Admit Time: 04:37 Departure-Patient Inst. Referrals: AKANKSHA POLANCO DO (PCP/Family) Primary Care Physician GRANT HINTON MD Mar 25, 2020 03:45
[2020-03-25 03:51] LABS: ALANINE AMINOTRANSFERASE 18 U/L (0-55); ALBUMIN 3.6 GM/DL (3.2-4.5); ALKALINE PHOSPHATASE 72 U/L (40-136); BILIRUBIN,TOTAL 0.3 MG/DL (0.1-1.0); BUN/CREATININE RATIO 30; CALCIUM 8.6 MG/DL (8.5-10.1); CARBON DIOXIDE 22 MMOL/L (21-32); CHLORIDE 110 MMOL/L (98-107); CREATININE SERUM 0.84 MG/DL (0.60-1.30); GFR ESTIMATED > 60; GLUCOSE 121 MG/DL (70-105); POTASSIUM 3.4 MMOL/L (3.6-5.0); SODIUM 143 MMOL/L (135-145); TOTAL PROTEIN 5.8 GM/DL (6.4-8.2)
[2020-03-25] MEDS ORDERED: ONDANSETRON 4 MG/2 ML (SDV) Z0FRAN IVP ONE (04:00)
--- NOTE | 2020-03-25 04:20 | NUR ---
Pt up to [facility] without incident; small amount of dark red blood noted in hat.
--- NOTE | 2020-03-25 05:00 | NUR ---
Pt resting; no new complaints at this time.
--- NOTE | 2020-03-25 05:20 | NUR ---
NONI SRIVASTAVA admitted to room 414-1, with an admitting diagnosis of GI BLEED, on 03/25/20 from ER via , accompanied by STAFF. NONI SRIVASTAVA introduced to surroundings, call light, bed controls, phone, TV, temperature control, lights, meal times, smoking policy, visitor policy, side rail policy, bathrooms and showers. Patient Rights given to patient in the handbook. NONI SRIVASTAVA verbalizes understanding that [facility] is not responsible for the loss or damage to any personal effects or valuables that are kept in the patients posession during their hospitalization.NONI SRIVASTAVA verbalizes understanding of Interdisciplinary Patient Education. Patient and/or family were informed about the Rapid Response Team and its purpose.
[2020-03-25] MEDS ORDERED: ONDANSETRON 4 MG/2 ML (SDV) Z0FRAN IVP PRN (05:30)
[2020-03-25] MEDS: LACTATED RINGERS 1,000 ML IV SCH ×3 (05:41→23:15)
[2020-03-25 08:34] LABS: HEMOGLOBIN 9.3 g/dL (11.5-16.0)
--- NOTE | 2020-03-25 11:06 | History & Physical-Surgical ---
JIMMY CARLSON MED STUDENT 03/25/20 1106: History of Present Illness History of Present Illness Reason for visit/HPI HPI per ER: Patient is a 80 year old female that presents to the ED via EMS from home for rectal bleeding. She had one episode of dark tarry stool followed by bright red blood per rectum. She reports having had EGD done last week that showed ulcers and she had a colonoscopy where she had several polyps removed. Patient says that she is on blood thinners. Patient says that she feels clammy is cold and has epigastric abdominal pain.She denies fever, chest pain, juan rtness of breath, cough, and diarrhea. Pt states she passed dark bloody stool at 01:00 this morning which was accompanied by 10/10 epigastric pain. Pt has been passing melena since. Pt last bowel movement was at 10:00 which was also a dark melena color, pt also had some dizziness with ambulation at the time. Pt had a EGG and colonscopy with polypectomy performed last Monday (03/17). Pts abd pain is at 5-6/10 at time of visit, this is the same pain shes been having prior to the EGD. Pt denies present ETOH use. Pt is taking aspirin and clopidogrel, which she restarted yesterday. Pt denies chest pain, palpitations, vomiting, dysuria, and SOB. Date of Admission Mar 25, 2020 at 04:44 Time Seen by a Provider: 10:30 I consulted on this patient on 03/25/20 10:30 Attending Physician Uma Menezes MD Admitting Physician Arnel Troncoso DO Consult Allergies and Home Medications Allergies Coded Allergies: Sulfa (Sulfonamide Antibiotics) (Verified Allergy, Intermediate, CONFUSED, 03/08/16) Home Medications Acetaminophen 500 Mg Tablet, 1,000 MG PO Q8H PRN for PAIN-MILD (1-4), (Reported) Allopurinol 100 Mg Tablet, 100 MG PO BID, (Reported) Amlodipine Besylate 10 Mg Tablet, 10 MG PO DAILY, (Reported) Aspirin 81 Mg Tablet.dr, 81 MG PO DAILY Prescribed by: REINALDO CHAKRABORTY on 11/28/19 0628 Atorvastatin Calcium 40 Mg Tablet, 40 MG PO HS, (Reported) Clonazepam 0.5 Mg Tablet, 0.5 MG PO TID, (Reported) Clopidogrel Bisulfate 75 Mg Tablet, 75 MG PO DAILY Prescribed by: REINALDO CHAKRABORTY on 11/28/19 0628 Levothyroxine Sodium 125 Mcg Tablet, 125 MCG PO DAILY, (Reported) Loperamide HCl 2 Mg Tablet, 2 MG PO DAILY PRN for DIARRHEA, (Reported) Ondansetron 4 Mg Tab.rapdis, 4 MG PO TID PRN for NAUSEA/VOMITING-1ST LINE, (Reported) Pantoprazole Sodium 40 Mg Tablet.dr, 40 MG PO BID, (Reported) Sertraline HCl 50 Mg Tablet, 50 MG PO DAILY, (Reported) Sucralfate 1 Gm Tablet, 1 GM PO QID Prescribed by: MARY BANSAL on 03/17/20 1005 Valsartan 320 Mg Tab, 160 MG PO DAILY, (Reported) TAKES OF A 320MG TAB Past Cwrktkl-Jgcztf-Eimvgm Hx Patient Social History Alcohol Use: Denies Use Recreational Drug Use: No Smoking Status: Former Smoker Former Smoker, Quit: Jun 12, 1984 2nd Hand Smoke Exposure: No Recent Foreign Travel: No Contact w/Someone Who Travel: No Recent Infectious Disease Expo: No Recent Hopitalizations: No Immunizations Up To Date Tetanus Booster (TDap): Unknown Date of Pneumonia Vaccine: Feb 12, 2018 Date of Influenza Vaccine: Feb 11, 2019 Seasonal Allergies Seasonal Allergies: Yes Surgeries History of Surgeries: Yes (ANKLE FX, ) Surgeries: Hysterectomy Respiratory History of Respiratory Disorde: No Cardiovascular History of Cardiac Disorders: Yes Cardiac Disorders: Coronary Artery Disease, High Cholesterol, Hypertension Neurological History of Neurological Disord: Yes Neurological Disorders: Headaches /Migraines Reproductive System Hx Reproductive Disorders: No Sexually Transmitted Disease: Yes HIV/AIDS: No 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 Genitourinary History of Genitourinary Disor: No Gastrointestinal History of Gastrointestinal Di: Yes (wt loss, ) Gastrointestinal Disorders: Gastroesophageal Reflux, Chronic Diarrhea Musculoskeletal History of Musculoskeletal Dis: No Endocrine History of Endocrine Disorders: Yes Endocrine Disorders: Hypothyroidsim HEENT History of HEENT Disorders: Yes HEENT Disorders: Cataract Loss of Vision: Bilateral Hearing Impairment: Hard of Hearing, Bilateral Hearing Aide Cancer History of Cancer: No Psychosocial History of Psychiatric Problem: Yes Behavioral Health Disorders: Anxiety Integumentary History of Skin or Integumenta: No Blood Transfusions History of Blood Disorders: No Adverse Reaction to a Blood Tr: No (N/A) Family Medical History Significant Family History: Cancer (sister dx'd with lung cancer last year, . Son passed from liver cancer. ), Diabetes (two 1st-degree relatives with diabettes ) Family Medial History: COPD G8 SISTER Cardiovascular disease 19 FATHER G8 SISTER G8 SISTER Diabetes mellitus G8 BROTHER G8 SISTER FH: lung cancer G8 SISTER Review of Systems Constitutional: No diaphoresis; dizziness EENTM: No mouth pain, No throat pain Respiratory: cough (allergic rhinitis ); No short of breath Cardiovascular: No chest pain; Hx of Intervention (R renal A stent placemnt 11/28/2019); No palpitations Gastrointestinal: abdominal pain (epigastric pain ), constipation (chronic hx); No dysphagia, No hematemesis; melena (since 01:00 today), nausea; No vomiting Genitourinary: No dysuria, No incontinence Musculoskeletal: No muscle pain, No muscle cramps Skin: No lesions, No rash Psychiatric/Neurological: Anxiety, Depressed no hx of bruising or bleeding. Physical Exam Vital Signs Vital Signs - First Documented 03/25/20 03:21 Temp 37.2 Pulse 54 Resp 18 B/P (MAP) 156/56 (89) Pulse Ox 95 O2 Delivery Room Air Capillary Refill : Less Than 3 Seconds Height, Weight, BMI Height: 5'7.00" Weight: 220lbs. 0.0oz. [id number]; 34.41 BMI Method: General Appearance: No Apparent Distress, WD/WN, Obese Eyes: Bilateral Eye Normal Inspection, Bilateral Eye PERRL, Bilateral Eye EOMI HEENT: Normal ENT Inspection, Pharynx Normal Neck: Full Range of Motion, Normal Inspection Respiratory: Lungs Clear, Normal Breath Sounds, No Accessory Muscle Use, No Respiratory Distress Cardiovascular: Regular Rate, Rhythm, No Murmur, Normal Peripheral Pulses Gastrointestinal: Normal Bowel Sounds, No Organomegaly, No Pulsatile Mass, Soft, Tenderness (epigastric pain palpated ) Rectal: Deferred Back: Normal Inspection, No CVA Tenderness, No Vertebral Tenderness Extremity: Normal Capillary Refill, Normal Inspection, No Pedal Edema Neurologic/Psychiatric: Alert, Oriented x3, Normal Mood/Affect, fork repairer II-XII Norm as Tested Skin: Normal Color, Warm/Dry Lymphatic: No Adenopathy Data Review Labs Laboratory Tests 03/25/20 03:10: White Blood Count 7.6, Red Blood Count 3.32L, Hemoglobin 10.4L, Hematocrit 32L, Mean Corpuscular Volume 95, Mean Corpuscular Hemoglobin 31, Mean Corpuscular Hemoglobin Concent 33, Red Cell Distribution Width 13.7, Platelet Count 200, Mean Platelet Volume 10.4, Immature Granulocyte % (Auto) 1, Neutrophils (%) (Auto) 59, Lymphocytes (%) (Auto) 29, Monocytes (%) (Auto) 8, Eosinophils (%) (Auto) 3, Basophils (%) (Auto) 1, Neutrophils # (Auto) 4.5, Lymphocytes # (Auto) 2.2, Monocytes # (Auto) 0.6, Eosinophils # (Auto) 0.3, Basophils # (Auto) 0.0, Immature Granulocyte # (Auto) 0.0, Sodium Level 143, Potassium Level 3.4L, Chloride Level 110H, Carbon Dioxide Level 22, Anion Gap 11, Blood Urea Nitrogen 25H, Creatinine 0.84, Estimat Glomerular Filtration Rate > 60, BUN/Creatinine Ratio 30, Glucose Level 121H, Calcium Level 8.6, Corrected Calcium 8.9, Total Bilirubin 0.3, Aspartate Amino Transf (AST/SGOT) 16, Alanine Aminotransferase (ALT/SGPT) 18, Alkaline Phosphatase 72, Total Protein 5.8L, Albumin 3.6 03/25/20 08:10: Hemoglobin 9.3L, Hematocrit 28L Assessment/Plan Assessment/Plan Admission Diagonsis Acute rectal bleeding & epigastric pain Admission Status: Observation Assessment/Plan Acute bleeding per rectum: Hgb dropped from 10.4 to 9.3 through this morning. Continue to follow Hgb and transfuse immediately if nadirs below 7.0. Pt restarted her blood thinner meds yesterday, which she is taking due to a R renal A. stent placed in November this year. Likely rectal bleeding is 2ndry to re- bleeding from polypectomy sights removed 03/17, pt had four polyps removed at that time. GERD: controlled on PPI, no post-prandial epigastric pain. start home regiment. Nashea: multifactorial. Likely due to anemia and abd pain. Start home regiment for nausea. Continue to monitor Hgb and bowel habits. No intervention planned at this time. Clinical Quality Measures DVT/VTE Risk/Contraindication: Risk Factor Score Per Nursin RFS Level Per Nursing on Admit: 2=Moderate Contraindications-Mechi: Other *list below* Other: GI BLEED MARY BANSAL DO 03/25/20 1416: History of Present Illness History of Present Illness Reason for visit/HPI Patient is a 80 year old female who had blood bowel movement this morning at about 0100. Has had a couple more blood bm's since. Initially more dark stool, now having some more bright red. Patient had recent egd c biopsies and colonoscpy with polypectomies. She just restarted her plavix and aspirin she states. Patient still having epigastric pain like she has been having. severity can get to 10/10 . Nothing makes better or worse that she knows of. Allergies and Home Medications Allergies Coded Allergies: Sulfa (Sulfonamide Antibiotics) (Verified Allergy, Intermediate, CONFUSED, 03/08/16) Home Medications Acetaminophen 500 Mg Tablet, 1,000 MG PO Q8H PRN for PAIN-MILD (1-4), (Reported) Allopurinol 100 Mg Tablet, 100 MG PO BID, (Reported) Amlodipine Besylate 10 Mg Tablet, 10 MG PO DAILY, (Reported) Aspirin 81 Mg Tablet.dr, 81 MG PO DAILY Prescribed by: REINALDO CHAKRABORTY on 11/28/19 0628 Atorvastatin Calcium 40 Mg Tablet, 40 MG PO HS, (Reported) Clonazepam 0.5 Mg Tablet, 0.5 MG PO TID, (Reported) Clopidogrel Bisulfate 75 Mg Tablet, 75 MG PO DAILY Prescribed by: REINALDO CHAKRABORTY on 11/28/19 0628 Levothyroxine Sodium 125 Mcg Tablet, 125 MCG PO DAILY, (Reported) Loperamide HCl 2 Mg Tablet, 2 MG PO DAILY PRN for DIARRHEA, (Reported) Ondansetron 4 Mg Tab.rapdis, 4 MG PO TID PRN for NAUSEA/VOMITING-1ST LINE, (Reported) Pantoprazole Sodium 40 Mg Tablet.dr, 40 MG PO BID, (Reported) Sertraline HCl 50 Mg Tablet, 50 MG PO DAILY, (Reported) Sucralfate 1 Gm Tablet, 1 GM PO QID Prescribed by: MARY BANSAL on 03/17/20 1005 Valsartan 320 Mg Tab, 160 MG PO DAILY, (Reported) TAKES OF A 320MG TAB Patient Home Medication List Home Medication List Reviewed: Yes Past Mvuabwb-Xepztl-Hlcpcm Hx Reviewed Nursing Assessment Reviewed/Agree w Nursing PMH: Yes Family Medical History Significant Family History: Cancer (sister dx'd with lung cancer last year, . Son passed from liver cancer. ), Diabetes (two 1st-degree relatives with diabettes ) Family Medial History: COPD G8 SISTER Cardiovascular disease 19 FATHER G8 SISTER G8 SISTER Diabetes mellitus G8 BROTHER G8 SISTER FH: lung cancer G8 SISTER Review of Systems Constitutional: No chills, No diaphoresis; dizziness EENTM: No mouth pain, No throat pain Respiratory: cough (allergic rhinitis ); No short of breath Cardiovascular: Hx of Intervention (R renal A stent placemnt 11/28/2019) Gastrointestinal: abdominal pain (epigastric pain ), constipation (chronic hx); No dysphagia, No hematemesis; melena (since 01:00 today), nausea; No vomiting Genitourinary: No dysuria, No incontinence Musculoskeletal: No muscle pain, No muscle cramps Skin: No lesions, No rash Psychiatric/Neurological: Denies Anxiety, Denies Depressed All Other Systems Reviewed Negative Unless Noted: Yes (Negative excepted noted.) Physical Exam General Appearance: No Apparent Distress, WD/WN HEENT: PERRL/EOMI, Normal ENT Inspection Neck: Full Range of Motion, Normal Inspection, Non Tender Respiratory: Chest Non Tender, No Accessory Muscle Use, No Respiratory Distress Cardiovascular: Regular Rate, Rhythm, No Murmur Gastrointestinal: Normal Bowel Sounds, No Organomegaly, Soft, Tenderness (epigastric minimal) Rectal: Deferred (at this time) Back: Normal Inspection, No CVA Tenderness, No Vertebral Tenderness Extremity: Normal Capillary Refill, Normal Inspection Neurologic/Psychiatric: Alert, Oriented x3 Skin: Warm/Dry, Pallor Lymphatic: No Adenopathy Assessment/Plan Assessment/Plan Admission Diagonsis blood per rectum suspect upper, vs lower anemia due to acute blood loss long-term antiplatelet use Admission Status: Observation Assessment/Plan blood per rectum suspect upper, vs lower anemia due to acute blood loss long-term antiplatelet use follow hgb had recent egd c biopsies and colonoscopy with polypectomies hold antiplatelets consult Dr. Montes De Oca for medical management NPO Since drop in HGb will plan EGD today if nothing found and continues to drop will need colonoscopy tomorrow Supervisory-Addendum Brief Verification & Attestation Participated in pt care: history, MDM, physical Personally performed: exam, history, MDM, supervision of care Care discussed with: Medical Student Procedures: n/a Results interpretation: Verified all documentation Verification and Attestation of Medical Student E/M Service A medical student performed and documented this service in my presence. I reviewed and verified all information documented by the medical student and made modifications to such information, when appropriate. I personally performed the physical exam and medical decision making. Mary Bansal, Mar 25, 2020,14:20 JIMMY CARLSON MED STUDENT Mar 25, 2020 11:06 MARY BANSAL DO Mar 25, 2020 14:16
[2020-03-25 12:51] LABS: HEMOGLOBIN 8.6 g/dL (11.5-16.0)
[2020-03-25] MEDS ORDERED: LACTATED RINGERS 1,000 ML IV ONE (14:29)
[2020-03-25] MEDS ORDERED: PROPOFOL INJECTION 50 ML IV ONE (14:42)
[2020-03-25] MEDS ORDERED: HURRICAINE EXT TUBE (BENZOCAINE) ONE (14:48)
[2020-03-25] MEDS ORDERED: LACTATED RINGERS 1,000 ML IV STA (14:57)
[2020-03-25] MEDS ORDERED: HURRICAINE EXT TUBE (BENZOCAINE) XX PRN (15:00)
--- NOTE | 2020-03-25 15:37 | Anesthesia-General Post-Op ---
MAC Patient Condition Mental Status/LOC: Same as Preop Cardiovascular: Satisfactory Nausea/Vomiting: Absent Respiratory: Satisfactory Pain: Controlled Complications: Absent Post Op Complications Complications None Follow Up Care/Instructions Patient Instructions None needed. Anesthesiology Discharge Order Discharge Order Patient is doing well, no complaints, stable vital signs, no apparent adverse anesthesia problems. No complications reported per nursing. INES MEDRANO CRNA Mar 25, 2020 15:37
[2020-03-25 15:43] LABS: HEMOGLOBIN 8.3 g/dL (11.5-16.0)
--- NOTE | 2020-03-25 16:35 | Consultation ---
AUNDREA KHAN, 03/25/20 1635: HPI History of Present Illness: FM consult to manage chronic medical problems. Pt presented to the ED via EMS after noticing 2 BM that was bloody. The first was dark and tarry with the second being bright red. She has been feeling weak and fatigued today after having these bowel movements. Denied any symptoms prior to the event. She previously had an EGD and colonoscopy last Monday (1005) - revealed an ulcer in her stomach and had polyps removed. Pt denies nausea and vomiting but does admit to centralized epigastric pain. She restarted her aspirin regimen yesterday 03/24 and was put on another blood thinner by Dr. Oconnor on 03/24, being Plavix. She took 1 dose and then noticed the blood in her stool thereafter. Source: patient Exam Limitations: no limitations, other (pt hard of hearing) Date seen by provider: Mar 25, 2020 Time Seen by Provider: 15:45 Attending Physician Uma Menezes MD PCP Arnel Troncoso DO Consult Date of Admission Mar 25, 2020 at 04:44 Home Medications Home Medications Reviewed patient Home Medication Reconciliation performed by pharmacy medication reconciliations delivery technician and/or nursing. Patients Allergies have been reviewed. Allergies Coded Allergies: Sulfa (Sulfonamide Antibiotics) (Verified Allergy, Intermediate, CONFUSED, 03/08/16) WJH-Brcjrz-Iihmig Hx Patient Social History Alcohol Use: Denies Use Recreational Drug Use: No Smoking Status: Former Smoker (quit 35 years ago) 2nd Hand Smoke Exposure: No Recent Foreign Travel: No Contact w/other who traveled: No Recent Hopitalizations: No Recent Infectious Disease Expo: No Immunizations Up To Date Tetanus Booster (TDap): Unknown Date of Pneumonia Vaccine: Feb 12, 2018 Date of Influenza Vaccine: Feb 11, 2019 Past Medical History PMHx: HTN Hyperlipidemia Hypothyroidism GERD Gout PSHx: Stent placement by Dr. Oconnor - unknown location per patient Cataracts Hysterectomy Skin biopsies x3 Anxiety/depression Family Medical History Significant Family History: Heart Disease (most of her family), Cancer (sister dx'd with lung cancer last year, . Son passed from liver cancer. ), Diabetes (two 1st-degree relatives with diabettes ) Family History: COPD G8 SISTER Cardiovascular disease 19 FATHER G8 SISTER G8 SISTER Diabetes mellitus G8 BROTHER G8 SISTER FH: lung cancer G8 SISTER Review of Systems ([facility]) Constitutional: malaise, weakness EENTM: no symptoms reported Respiratory: No cough, No short of breath Cardiovascular: No chest pain, No palpitations Gastrointestinal: abdominal pain, melena (and hematochezia) Genitourinary: no symptoms reported Musculoskeletal: no symptoms reported Skin: No dryness, No rash Psychiatric/Neurological: Anxiety, Weakness Reviewed Test Results Reviewed Test Results Lab Laboratory Tests 03/25/20 03:10 03/25/20 08:10 03/25/20 12:36 03/25/20 15:[address] Hodge 0410 - revealed aggravated ulcer Physical Exam-([facility]) Physical Exam Vital Signs VS - Last 72 Hours, by Label 03/25/20 03/25/20 03/25/20 03/25/20 03:21 04:53 05:21 05:23 Temp 37.2 36.0 36.0 Pulse 54 50 52 52 Resp 18 18 18 18 B/P (MAP) 156/56 (89) 138/59 125/57 (79) 125/57 Pulse Ox 95 96 96 96 O2 Delivery Room Air Room Air Room Air Room Air 03/25/20 03/25/20 03/25/20 03/25/20 05:40 08:18 12:33 15:00 Temp 36.0 36.2 Pulse 56 57 60 Resp 18 16 16 B/P (MAP) 115/58 (77) 124/68 (86) Pulse Ox 94 94 100 O2 Delivery Room Air Room Air Room Air OxyMask O2 Flow Rate 10 03/25/20 03/25/20 03/25/20 15:05 15:10 15:33 Temp 36.3 Pulse 63 65 63 Resp 16 18 16 B/P (MAP) 122/56 (78) Pulse Ox 100 100 92 O2 Delivery OxyMask Room Air Room Air O2 Flow Rate 5 Capillary Refill : Less Than 3 Seconds General Appearance: WD/WN, no apparent distress Eyes: Bilateral Eye PERRL, Bilateral Eye EOMI, Bilateral Eye Conjunctivae Pale HEENT: pale conjunctivae (R), pale conjunctivae (L) Neck: non-tender, supple Respiratory: chest non-tender, lungs clear, normal breath sounds Cardiovascular: regular rate, rhythm, no murmur Peripheral Pulses: 2+ Radial Pulses (R), 2+ Radial Pulses (L) Gastrointestinal: normal bowel sounds, tenderness (epigastrium) Extremities: no pedal edema, normal capillary refill Neurologic/Psychiatric: alert, normal mood/affect Skin: warm/dry, pallor Assessment/Plan Assessment/Plan Assessment & Plan 1. Acute blood loss anemia * Hg/Hct on admission 10.432, repeat H&H 0810 9.3, H&H 1236 8.6/, H&H 1535 8.3 * Previous EGD/colo on 03/17 revealed ulcers and polypectomy * Dr. Hodge primary on this patient * EGD this afternoon revealed aggravated ulcer * Currently H&H Q4H, Dr. Hodge would like to extend to Q8H as 1535 is stable. * Monitor H&H closely, will transfuse if necessary -- pt O+ * Plan for colonoscopy tomorrow 2. Acute GI bleed * Pt has bright red blood per rectum * Plan as above * Will stop home Plavix and ASA regimen 3. HTN * Home medications restarted if needed * Currently normotensive 4. Hyperlipidemia * Start home medications 5. GERD * Restart home pantoprazole 6. Hypothyroidism * Restart levothyroxine 7. Gout * Start home allopurinol 8. Anxiety/depression * Start home medications Diet: CLD, npo @ midnight FULL CODE PPx: held due to GI bleed, SCDs for now Dispo: likely >2 midnights, will defer d/c planning to gen surgery Clinical Quality Measures DVT/VTE Risk/Contraindication: Risk Factor Score Per Nursin RFS Level Per Nursing on Admit: 2=Moderate Contraindications-Mechi: Other *list below* Other: GI BLEED COREY FARMER MD 03/25/201948: Home Medications Allergies Coded Allergies: Sulfa (Sulfonamide Antibiotics) (Verified Allergy, Intermediate, CONFUSED, 03/08/16) R[facility]-Wunwur-Vlnxcd Hx Family Medical History Family History: COPD G8 SISTER Cardiovascular disease 19 FATHER G8 SISTER G8 SISTER Diabetes mellitus G8 BROTHER G8 SISTER FH: lung cancer G8 SISTER Supervisory-Addendum Brief Verification & Attestation Participated in pt care: history, MDM, physical Personally performed: exam, history, MDM Care discussed with: Medical Student Procedures: n/a I personally saw and examined this patient and performed my own history and exam and directed the plan of care. I agree with the documentation by medical student. AUNDREA KHAN, Mar 25, 2020 16:35 COREY FARMER MD Mar 25, 2020 19:49
[2020-03-25] MEDS ORDERED: polyethylene glycoL Bowel Prep(MIRALAX) 238 GM PO SCH (18:00)
[2020-03-25] MEDS ORDERED: BISACODYL 5 MG (DULCOLAX) TABLET PO SCH (18:00)
[2020-03-25] MEDS: ACETAMINOPHEN 325 MG TABLET PO PRN (18:11)
[2020-03-25] MEDS: BISACODYL 5 MG (DULCOLAX) TABLET PO SCH ×2 (18:11→20:24)
[2020-03-25] MEDS: clonazePAM 0.5 MG (KlonoPIN) TAB PO SCH (20:24)
[2020-03-25] MEDS: PANTOPRAZOLE 40 MG (PROTONIX) VIAL IV SCH (20:24)
--- NOTE | 2020-03-25 23:40 | OPERATIVE REPORT ---
DATE OF SERVICE: 03/25/2020 PREOPERATIVE DIAGNOSIS: Blood per rectum. POSTOPERATIVE DIAGNOSES: Healing gastric ulcer, gastritis. ANESTHESIA: Per TRUCK HOP. PROCEDURE: EGD. ESTIMATED BLOOD LOSS: None. COMPLICATIONS: None. INDICATIONS: The patient is a 80-year-old female, who had recent EGD with biopsies and colonoscopy with polypectomies. The patient has started having blood per rectum. She was discussed risks and benefits of having EGD for further evaluation, which she understands risks and benefits and wishes to proceed. Consent was signed in the chart. DESCRIPTION OF PROCEDURE: The patient was taken to the endoscopy suite, placed in left lateral recumbent position. Timeout was performed. Scope was inserted in mouth, down the esophagus, stomach and into the duodenum without difficulty. There were no polyps, masses or ulcerations or any bleeding within the duodenum. Scope was slowly retracted back to stomach where it was further insufflated. Along lesser curvature, a healing ulcer still present and some vascularization noted. No active bleeding. There is also some gastritis appearance in the antrum as well. Scope was retroflexed noting no other pathology. Scope was returned to its normal position, slowly withdrawn to distal esophagus, which had no polyps, masses or ulcerations. Scope was slowly retracted back to completely remove noting no other pathology. The patient tolerated procedure well without any complications. She was taken to recovery room in stable condition. RECOMMENDATIONS: I would recommend doing a colon prep today and having a colonoscopy tomorrow, which I will arrange. Further recommendations pending colonoscopy tomorrow. Job ID: [id number] DocumentID: [id number] Dictated Date: 03/25/2020 15:13:37 High School Sports Coach Date: 03/25/2020 23:39:48 Dictated By: MARY BANSAL DO
[2020-03-26] VITALS (7 sets, daily range): BP systolic 127–165; BP diastolic 58–73
[2020-03-26 01:20] LABS: HEMOGLOBIN 7.8 g/dL (11.5-16.0)
[2020-03-26 06:32] LABS: HEMOGLOBIN 7.6 g/dL (11.5-16.0)
--- NOTE | 2020-03-26 07:01 | Progress Note ---
IRBYPradeepAUNDREA MOE, 03/26/20 0701: Subjective Subjective/Events-last exam Pt seen on med/surg floor this morning. Bowel prep yesterday and is currently npo for colonoscopy today. Patient states she had another bloody BM at 0630 after last H&H check. Nursing states BM closer to 0000. Pt denies chest pain, shortness of breath, nausea, or vomiting. Appears extremely tired this am and fell asleep during questioning. Objective Exam Last Set of Vital Signs Vital Signs Date Time Temp Pulse Resp B/P (MAP) Pulse Ox O2 Delivery O2 Flow Rate FiO2 03/26/20 03:32 36.4 64 18 139/64 (89) 93 Room Air 03/25/20 15:05 5 Capillary Refill : Less Than 3 Seconds I&O Intake and Output 03/26/20 00:00 Intake Total 2140 ml Balance 2140 ml Intake Oral 1040 ml IV Total 1100 ml # Voids 7 # Bowel Movements 6 Daily Weight Change No No General: Alert, Cooperative, Other (pale) HEENT: PERRLA, EOMI Neck: Supple, No JVD Lungs: Clear to Auscultation, Normal Air Movement Heart: Regular Rate, No Murmurs Abdomen: Normal Bowel Sounds, Soft, No Tenderness Extremities: No Cyanosis, Other (1+ pitting edema on bilateral LE) Skin: No Rashes Neuro: Normal Speech, Normal Tone Psych/Mental Status: Mental Status NL, Mood NL Results/Procedures Lab Laboratory Tests 03/25/20 08:10: Hemoglobin 9.3L, Hematocrit 28L 03/25/20 12:36: Hemoglobin 8.6L, Hematocrit 26L 03/25/20 14:35: Coronavirus (COVID-19)(PCR) Negative 03/25/20 15:35: Hemoglobin 8.3L, Hematocrit 26L 03/26/20 00:53: Hemoglobin 7.8L, Hematocrit 24L 03/26/20 06:02: Hemoglobin 7.6L, Hematocrit 24L Procedures EGD by Dr. Hodge 2830 - revealed aggravated ulcer Assessment/Plan Assessment/Plan Assessment & Plan 1. Acute blood loss anemia * Hg/Hct on admission with repeat H&H @ 1535 * Previous EGD/colo on 03/17 revealed ulcers and polypectomy * Dr. Hodge primary on this patient * EGD 03/25 revealed aggravated ulcer * Currently H&H Q8H: 0053 H&H 7.8/24, 0602 H&H 7.6/24 * Monitor H&H closely, will transfuse if necessary -- pt O+ * Plan for colonoscopy 03/26 2. Acute GI bleed * Pt has bright red blood per rectum * Plan as above * Will stop home Plavix and ASA regimen 3. HTN * Home medications restarted if needed * Had a few episodes of hypertension overnight but recent vitals 139/64 * Will not restart home medications at this time 4. Hyperlipidemia * Start home medications 5. GERD * Restart home pantoprazole 6. Hypothyroidism * Restart levothyroxine 7. Gout * Start home allopurinol 8. Anxiety/depression * Start home medications Diet: CLD, npo @ midnight FULL CODE PPx: held due to GI bleed, SCDs for now Dispo: likely >2 midnights, will defer d/c planning to gen surgery Clinical Quality Measures DVT/VTE Risk/Contraindication: Risk Factor Score Per Nursin RFS Level Per Nursing on Admit: 2=Moderate Contraindications-Mechi: Other *list below* Other: GI BLEED COREY FARMER MD 03/26/20 1229: Supervisory-Addendum Brief Verification & Attestation Participated in pt care: history, MDM, physical Personally performed: exam, history, MDM Care discussed with: Medical Student Procedures: n/a I personally saw this patient and repeated my own history and physical and agree with the student documentation. I directed the plan of care as documented by the medical student. AUNDREA KHAN, Mar 26, 2020 07:01 COREY FARMER MD Mar 26, 2020 12:29
[2020-03-26] MEDS: PANTOPRAZOLE 40 MG (PROTONIX) VIAL IV SCH ×2 (08:29→19:42)
[2020-03-26] MEDS: LEVOTHYROXINE 125 MCG (LEVOTHROID) TABLET PO SCH (09:00)
[2020-03-26] MEDS: clonazePAM 0.5 MG (KlonoPIN) TAB PO SCH ×3 (09:00→19:42)
--- NOTE | 2020-03-26 09:53 | Progress Note - Surgery ---
JIMMY CARLSON MED STUDENT 03/26/20 0953: Subjective Time Seen by a Provider: 09:40 Subjective/Events-last exam Pt feels slighly improved today. H&H stable this morning at 00:53 was 7.8/24, at 06:02 was 7.6/24. Pt has still been having bloody BMs. 03/25 EGD showed a healing ulcer in the lesser curvature of the stomach and some gastritis but no active bleeding. Pt set for colonscopy later today on NPO status. Pt denies dizziness with ambulation. Pt has no epigastric pain this morning unlike yesterday. Pt just passed stool before visit, nurse described as federico colored, not bright red. Review of Systems General: No Night Sweats; Fatigue Pulmonary: No Dyspnea; Cough (allergic rhinitis); No Pleuritic Chest Pain Cardiovascular: No: Chest Pain, Palpitations, Edema Gastrointestinal: Diarrhea, Hematochezia; No: Nausea, Vomiting, Abdominal Pain, Constipation Objective Exam Vital Signs Date Time Temp Pulse Resp B/P (MAP) Pulse Ox O2 Delivery O2 Flow Rate FiO2 03/26/20 08:00 36.3 63 20 165/73 (103) 93 Room Air 03/26/20 03:32 36.4 64 18 139/64 (89) 93 Room Air 03/25/20 23:55 36.4 69 18 150/66 (94) 93 Room Air 03/25/20 20:25 Room Air 03/25/20 19:44 36.2 71 18 159/66 (97) 93 Room Air 03/25/20 15:33 36.3 63 16 122/56 (78) 92 Room Air 03/25/20 15:10 65 18 100 Room Air 03/25/20 15:05 63 16 100 OxyMask 5 03/25/20 15:00 60 16 100 OxyMask 10 03/25/20 12:33 36.2 57 16 124/68 (86) 94 Room Air I & O 03/26/20 07:00 Intake Total 2440 ml Output Total 550 ml Balance 1890 ml Capillary Refill : Less Than 3 Seconds General Appearance: No Apparent Distress, WD/WN HEENT: PERRL/EOMI, Normal ENT Inspection Neck: Full Range of Motion, Normal Inspection, Non Tender Respiratory: Chest Non Tender, Normal Breath Sounds, No Accessory Muscle Use, No Respiratory Distress Cardiovascular: Regular Rate, Rhythm, No Edema, No Murmur, Normal Peripheral Pulses Peripheral Pulses: 2+ Radial Pulses (R), 2+ Radial Pulses (L) Extremity: Normal Inspection Neurologic/Psychiatric: Alert, Oriented x3 Skin: Warm/Dry, Pallor Lymphatic: No Adenopathy Results Lab Laboratory Tests 03/25/20 12:36: Hemoglobin 8.6L, Hematocrit 26L 03/25/20 14:35: Coronavirus (COVID-19)(PCR) Negative 03/25/20 15:35: Hemoglobin 8.3L, Hematocrit 26L 03/26/20 00:53: Hemoglobin 7.8L, Hematocrit 24L 03/26/20 06:02: Hemoglobin 7.6L, Hematocrit 24L Assessment/Plan Assessment/Plan Assessment/Plan Acute bleeding per rectum, suspect lower Vs upper GI bleed. Hgb dropped from 7.8 to 7.6 through this morning: Stable. Continue to follow Hgb and transfuse immediately if nadirs below 7.0. Pt restarted her blood thinner meds the day before bleeding began, which she is taking due to a R renal A. stent placed in November this year. Likely rectal bleeding is 2ndry to re-bleeding from polypectomy sights removed 03/17, pt had four polyps removed at that time. GERD: controlled on PPI, no post-prandial epigastric pain. start home regiment. Nashea: multifactorial. Likely due to anemia and abd pain. Start home regiment for nausea. EGD from 03/25 showed no active bleeding, a healing gastric ulcer and some gastritis. Dr Hodge recommended a colonoscopy at that time. Continue to monitor Hgb and bowel habits. NPO status. Colonscopy planned for later today. No recommendations can be forwarded until colonscopy is performed. Clinical Quality Measures DVT/VTE Risk/Contraindication: Risk Factor Score Per Nursin RFS Level Per Nursing on Admit: 2=Moderate Contraindications-Mechi: Other *list below* Other: GI BLEED BASHIR SLOAN DO 03/27/20 1120: Subjective Time Seen by a Provider: 16:11 Subjective/Events-last exam Pt seen after her colonoscopy from the am. She was seen on 03/26, this note done 03/27. No complaints, but a little weak. Review of Systems General: No Night Sweats Pulmonary: No Dyspnea; Cough (allergic rhinitis) Cardiovascular: No: Chest Pain, Palpitations Gastrointestinal: No: Nausea, Vomiting, Abdominal Pain Objective Exam General Appearance: No Apparent Distress, WD/WN HEENT: PERRL/EOMI Respiratory: Lungs Clear, Normal Breath Sounds, No Accessory Muscle Use, No Respiratory Distress Cardiovascular: Regular Rate, Rhythm, No Murmur Gastrointestinal: non tender, soft, no organomegaly Assessment/Plan Assessment/Plan Assessment/Plan Colonoscopy showed at least 2 of 4 polypectomy sites had/were bleeding. Injection of epinephrine around area to stop bleeding. Watch pt overnight and see how she does. Supervisory-Addendum Brief Verification & Attestation Participated in pt care: history, MDM, physical Personally performed: exam, history, MDM Care discussed with: Medical Student Procedures: n/a Verification and Attestation of Medical Student E/M Service A medical student performed and documented this service. I then reviewed and verified all information documented by the medical student and made modifications to such information, when appropriate. I personally performed a physical exam, medical decision making and then discussed any differences between the notes and made revisions as necessary to create one note. Bashir Sloan , 03/27/20 , 11:20 JIMMY CARLSON MED STUDENT Mar 26, 2020 09:53 BASHIR SLOAN DO Mar 27, 2020 11:20
[2020-03-26] MEDS ORDERED: MTP25TSR PO (09:59)
[2020-03-26] MEDS ORDERED: FLUT16SP22 NSEACH (09:59)
[2020-03-26] MEDS ORDERED: SUCR1TAB PO (09:59)
[2020-03-26] MEDS ORDERED: CLOP75TA28 PO (09:59)
[2020-03-26] MEDS ORDERED: LACTATED RINGERS 1,000 ML IV ONE (10:03)
[2020-03-26] MEDS ORDERED: ASPI-1238 PO (10:04)
--- NOTE | 2020-03-26 10:07 | NUR ---
SPOKE WITH THE PT (SHE HAD A MED LIST), WENT THRU THE EXT MED HISTORY AND CALLED [facility] TO COMPLETE THE MED REC 01-09-2020 SERTRALINE 50MG #90/90DS 01-13-2020 LEVOTHYROXINE 125MCG #90/90DS 01-16-2020 ALLOPURINOL 100MG #180/90DS 02-06-2020 ATORVASTATIN 40MH #90/90DS ON THE PTS HOME MEDICATION LIST THERE WERE SEVERAL NEWER MEDICATIONS THAT HAD NOT BEEN INCLUDED (CARAFATE, METOPROLOL, CLOPIDOGREL) HOWEVER THE PT IS TAKING ALL OF THESE AND THEREFORE HAVE BEEN ADDED TO THE MED REC OTC MEDS: ASPIRIN 81 TYLENOL IMODIUM Addendum: 03/26/20 at 1011 by FOX NICE CPhT I ALSO CALLED THE DINKEY OPERATOR [facility] OFFICE TO GET A MED LIST FROM THEM- I WILL INCLUDE A COPY ON HER CHART
[2020-03-26] MEDS ORDERED: PROPOFOL INJECTION 50 ML IV ONE (10:48)
[2020-03-26] MEDS ORDERED: EPINEPHrine INJECTION 1 MG/ML AMP ONE (11:13)
[2020-03-26] MEDS ORDERED: hydrALAZINE (APESOLINE) 20 MG/ML VIAL ONE (11:13)
[2020-03-26] MEDS ORDERED: BISACODYL 5 MG (DULCOLAX) TABLET PO SCH ×2 (12:00→15:00)
--- NOTE | 2020-03-26 12:00 | NUR ---
PT DAUGHTER IN LAW, JENNIFER UPDATED ON PT CONDITION VIA PHONE
--- NOTE | 2020-03-26 12:05 | Progress Note-Post Operative ---
Post-Operative Progess Note Surgeon (s)/Duck Operator (s) Surgeon KEVON SLOAN DO Duck Operator: JUAN George Pre-Operative Diagnosis GI bleed Post-Operative Diagnosis same coming from polypectomy sites Procedure & Operative Findings Date of Procedure 03/26/20 Procedure Performed/Findings Colon with injection of epineprhine to control bleeding Anesthesia Type IV sedation by BRAKE ADJUSTER Estimated Blood Loss Estimated blood loss (mL): scant Specimens/Packing Specimens Removed none KEVON SLOAN DO Mar 26, 2020 12:05
[2020-03-26 13:40] LABS: HEMOGLOBIN 7.8 g/dL (11.5-16.0)
--- NOTE | 2020-03-26 15:35 | NUR ---
This RN answered call made to floor nurse from [facility] Engineering Research Manager, Danay Emmanuel. She was questioning if patient was still in the ICU and if we had discharge date for her as of yet. Answered her questions to best of ability. Management Development Specialist Bernie Martin [phone]. Call her if she is needing anything for discharge. Spoke with Danay Emmanuel who is the Engineering Research Manager for the [facility]. [phone].
[2020-03-26] MEDS: LACTATED RINGERS 1,000 ML IV SCH (15:43)
[2020-03-26] MEDS: ACETAMINOPHEN 325 MG TABLET PO PRN (15:43)
--- NOTE | 2020-03-26 15:55 | OPERATIVE REPORT ---
DATE OF SERVICE: 03/26/2020 PREOPERATIVE DIAGNOSES: Gastrointestinal bleed. POSTOPERATIVE DIAGNOSIS: Gastrointestinal bleed plus healing polypectomy areas. PROCEDURE PERFORMED: Colonoscopy with injection of epinephrine. SURGEON: Bashir Castano DO BROADCAST DESIGNER: VIRGINIA Coppola. ANESTHESIA: IV sedation by the PALOMO. SPECIMENS: None. BLOOD LOSS: Scant. FLUIDS: Per anesthesia. POSTOPERATIVE CONDITION: Stable. INDICATION FOR PROCEDURE: The patient is a 40-year-old female, who has been having bright red rectal bleeding, had anemia, hemoglobin had dropped. She recently had an EGD and colonoscopy. She had an EGD last night, which showed some mild irritation along the lesser curvature, but no obvious sign of bleeding. She needed a colonoscopy today. FINDINGS: The patient had three spots that we were able to see, where she had previous polypectomies. Two of them looked like they had been bleeding. They were injected with epinephrine. PROCEDURE NOTE: After an informed consent was obtained, the patient was brought to the endoscopy suite, placed in the bed in the left lateral decubitus position. She was administered IV sedation by the FIELD SERVICE ANALYST, who then monitored her vitals the entire time, heart rate, blood pressure, pulse oximetry. Scope was inserted, pushed all the way into about 140 cm, able to get all the way to the cecum, but on the way, in the transverse colon noted an area that looked like it had a polypectomy, did not appear to be bleeding. Took a picture of this and then pushed past it towards the ascending colon. In the ascending colon, saw another spot, where polypectomies were performed. This did look like there was having a little bit of bleeding. There was some little bit of blood leaking out. I elected to inject some epinephrine in a normal saline into the subcu, washed the bulge up. It looked good and the bleeding stopped. Pushed pass this all the way to cecum, took a picture of appendiceal orifice and then slowly withdrew the scope insufflating the circumferential turcios in the cecum, up the ascending colon, saw the spot we had previously injected and then saw another spot in the ascending colon. I elected to inject this with some epinephrine as well, got a good blanching of the tissue and then continued down into the transverse colon, saw the spot on the transverse colon, took a picture, did not appear to have any signs of bleeding, looked like it was healing and continued down to the splenic flexure, into the descending colon down in the sigmoid, saw some diverticula throughout here, took a picture and then down into the rectum, did not see the biopsy from the rectal, did not see any signs of bleeding throughout the colon. There were some old clots, but no active bleeding. There was no blood in the colon. Retroflexed the scope in the rectal vault, saw some minimal internal hemorrhoids, took a picture of this and then removed the scope. The patient tolerated the procedure. She was recovered in the endoscopy suite. Job ID: [id number] DocumentID: [id number] Dictated Date: 03/26/2020 11:59:07 Flake Miller Helper Date: 03/26/2020 15:55:20 Dictated By: BASHIR CASTANO DO
[2020-03-26 22:12] LABS: HEMOGLOBIN 6.5 g/dL (11.5-16.0)
--- NOTE | 2020-03-26 22:25 | NUR ---
H&H 6.5,20 DR. SLOAN NOTIFIED, NO NEW ORDERS.
[2020-03-27] VITALS (8 sets, daily range): BP systolic 153–170; BP diastolic 65–72
[2020-03-27] MEDS: LACTATED RINGERS 1,000 ML IV SCH (05:28)
[2020-03-27 05:52] LABS: HEMOGLOBIN 6.4 g/dL (11.5-16.0)
[2020-03-27] MEDS ORDERED: NS IV 500 ML 500 ML IV SCH ×2 (07:04→07:15)
[2020-03-27] MEDS: PANTOPRAZOLE 40 MG (PROTONIX) VIAL IV SCH (07:56)
[2020-03-27] MEDS: LEVOTHYROXINE 125 MCG (LEVOTHROID) TABLET PO SCH (07:57)
[2020-03-27] MEDS: clonazePAM 0.5 MG (KlonoPIN) TAB PO SCH (07:57)
--- NOTE | 2020-03-27 08:05 | Progress Note ---
ERINAUNDREA, 03/27/20 0805: Subjective Subjective/Events-last exam Ms. Garcia seen and examined on med/surg floor this morning. Pt has not had any blood in her stool since her colonoscopy. She denies any concerns at this time. She is ready to go home. Denies any chest pain, shortness of breath, nausea/vomiting, or abdominal pain. Objective Exam Last Set of Vital Signs Vital Signs Date Time Temp Pulse Resp B/P (MAP) Pulse Ox O2 Delivery O2 Flow Rate FiO2 03/27/20 03:27 37.0 74 20 162/69 (100) 95 Room Air 03/26/20 11:30 10 Capillary Refill : Less Than 3 Seconds I&O Intake and Output 03/27/20 00:00 Intake Total 2920 ml Output Total 1700 ml Balance 1220 ml Intake Oral 1920 ml IV Total 1000 ml Output Urine Total 1150 ml Urine/Stool Mix 550 ml # Bowel Movements 1 General: Alert, Cooperative HEENT: PERRLA, EOMI Neck: Supple, No JVD Lungs: Clear to Auscultation, Normal Air Movement Heart: Regular Rate, No Murmurs Abdomen: Normal Bowel Sounds, Soft, No Tenderness Extremities: No Cyanosis, No Edema Skin: No Rashes Neuro: Normal Speech, Normal Tone Results/Procedures Lab Laboratory Tests 03/26/20 13:35: Hemoglobin 7.8L, Hematocrit 23L 03/26/20 22:00: Hemoglobin 6.5*L, Hematocrit 20*L 03/27/20 05:30: Hemoglobin 6.4*L, Hematocrit 20*L Microbiology 03/25/20 MRSA Screen - Final, Complete MRSA not isolated Procedures EGD by Dr. Hodge - revealed aggravated ulcer [place] by Dr. Castano - epinephrine into residual bleeding biopsy sites Assessment/Plan Assessment/Plan Assessment & Plan 1. Acute blood loss anemia * Hg/Hct on admission with repeat H&H @ 1535 * Previous EGD/colo on 03/17 revealed ulcers and polypectomy * Dr. Hodge primary on this patient * EGD 03/25 revealed aggravated ulcer * Colonoscopy revealed bleeding biopsy sites, epinephrine injected * 03/26 H&H: 6.10/29 * Monitor H&H closely, will transfuse if necessary -- pt O+ 2. Acute GI bleed * Pt has bright red blood per rectum * Plan as above * Will stop home Plavix and ASA regimen 3. HTN * Previously normotensive * Starting home medications today as pt is currently hypertensive 4. Hyperlipidemia * Start home medications 5. GERD * Restart home pantoprazole 6. Hypothyroidism * Restart levothyroxine 7. Gout * Start home allopurinol 8. Anxiety/depression * Start home medications Diet: progress diet as tolerated FULL CODE PPx: held due to GI bleed, SCDs for now Dispo: likely >2 midnights, will defer d/c planning to gen surgery Clinical Quality Measures DVT/VTE Risk/Contraindication: Risk Factor Score Per Nursin RFS Level Per Nursing on Admit: 2=Moderate Contraindications-Mechi: Other *list below* Other: GI BLEED COREY FARMER MD 03/27/20 1252: Supervisory-Addendum Brief Verification & Attestation Participated in pt care: history, MDM, physical Personally performed: exam, history Care discussed with: Medical Student Procedures: n/a I personally saw and examined patient today and my findings match those documented by the medical student, agree with documentation. AUNDREA KHAN, Mar 27, 2020 08:05 COREY FARMER MD Mar 27, 2020 12:52
--- NOTE | 2020-03-27 08:47 | Progress Note - Surgery ---
JIMMY CARLSON MED STUDENT 03/27/20 0847: Subjective Time Seen by a Provider: 08:35 Subjective/Events-last exam pt denies blood in her stool since having the colonscopy yesterday, which showed two aggrevated polypectomy sights which were injected with epinephrine. Pt states she has had one BM since the colonoscopy- occured last night, hasn't had one this morning yet. Pt H&H stayed stable from 11/15/19 at 22:00 yesterday to .09/29 at 05:30 this morning. Pt denies any dizziness, weakness or syncope with ambulation. Pt getting blood transfusion currently. Pts epigastric pain she had at admission has resolved the past 2 days. Pt asked to be discharged. Review of Systems General: No Night Sweats, No Fatigue HEENT: No Dysphasia, No Sore Throat Pulmonary: No Dyspnea; Cough; No Pleuritic Chest Pain Cardiovascular: No: Chest Pain, Palpitations Gastrointestinal: No: Nausea, Vomiting, Abdominal Pain, Melena, Hematochezia Genitourinary: No Dysuria, No Incontinence Objective Exam Vital Signs Date Time Temp Pulse Resp B/P (MAP) Pulse Ox O2 Delivery O2 Flow Rate FiO2 03/27/20 08:35 37.0 77 18 153/65 95 Room Air 03/27/20 03:27 37.0 74 20 162/69 (100) 95 Room Air 03/27/20 00:00 36.6 68 18 163/72 (102) 95 Room Air 03/26/20 19:40 Room Air 03/26/20 19:30 36.6 72 18 140/61 (87) 93 Room Air 03/26/20 16:19 37.2 75 16 143/63 (89) 93 Room Air 03/26/20 12:00 36.1 64 16 159/67 (97) 94 Room Air 03/26/20 11:35 63 18 94 03/26/20 11:30 63 18 99 Room Air 10 I & O 03/27/20 07:00 Intake Total 3920 ml Output Total 2350 ml Balance 1570 ml Capillary Refill : Less Than 3 Seconds General Appearance: No Apparent Distress, WD/WN HEENT: Normal ENT Inspection, Pharynx Normal, Pale Conjunctivae (L) Neck: Normal Inspection, Non Tender Respiratory: Normal Breath Sounds, No Accessory Muscle Use, No Respiratory Distress Cardiovascular: Regular Rate, Rhythm, No Edema, No Murmur, Normal Peripheral Pulses Peripheral Pulses: 2+ Radial Pulses (R), 2+ Radial Pulses (L) Gastrointestinal: normal bowel sounds, non tender, soft, no pulsatile mass Extremity: Normal Inspection Neurologic/Psychiatric: Alert, Oriented x3, Normal 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 both injected with epinephrine. H&H stable. Pt no longer passing hematochezia or melena. Pt getting blood transfusion. Pt restarted her blood thinner meds the day before bleeding began, which she is taking due to a R renal A. stent placed in November this year. Likely rectal bleeding is 2ndry to re-bleeding from polypectomy sights removed 03/17, pt had four polyps removed at that time. GERD: controlled on PPI, no post-prandial epigastric pain. continue home regim ent. Pt denies any epigatric pain the last two days. No abd pain on PE. Nashea: controlled. Continue Ondansetron for nausea. Repeat H&H after blood transfusion is performed today. Pt stable and without bleeding, consider discharge. No intervention required at this time. Consider restarting blood thinners tomorrow if pt continues to have normal BMs today. Clinical Quality Measures DVT/VTE Risk/Contraindication: Risk Factor Score Per Nursin RFS Level Per Nursing on Admit: 2=Moderate Contraindications-Mechi: Other *list below* Other: GI BLEED BASHIR SLOAN DO 03/27/20 1123: Subjective Time Seen by a Provider: 10:28 Subjective/Events-last exam Pt seen and examined, states feels fine and wants to go home. Had BM this am that was brown, last night also brown. Review of Systems General: No Night Sweats; Fatigue Pulmonary: No Dyspnea; Cough Cardiovascular: No: Chest Pain, Palpitations Gastrointestinal: No: Nausea, Vomiting, Abdominal Pain, Melena, Hematochezia Objective Exam General Appearance: No Apparent Distress, WD/WN Respiratory: Lungs Clear, Normal Breath Sounds, No Accessory Muscle Use, No Respiratory Distress Cardiovascular: Regular Rate, Rhythm, No Murmur Gastrointestinal: non tender, soft, no organomegaly Neurologic/Psychiatric: Alert, Oriented x3 Assessment/Plan Assessment/Plan Assessment/Plan Pt is getting blood transfusion but then can be sent home. Supervisory-Addendum Brief Verification & Attestation Participated in pt care: history, MDM, physical Personally performed: exam, history, MDM Care discussed with: Medical Student Procedures: n/a Verification and Attestation of Medical Student E/M Service A medical student performed and documented this service. I then reviewed and verified all information documented by the medical student and made modifications to such information, when appropriate. I personally performed a physical exam, medical decision making and then discussed any differences between the notes and made revisions as necessary to create one note. Bashir Sloan , 03/27/20 , 11:23 JIMMY CARLSON MED STUDENT Mar 27, 2020 08:47 BASHIR SLOAN DO Mar 27, 2020 11:23
--- NOTE | 2020-03-27 11:25 | Discharge Inst-Surgical ---
Discharge Inst-Surgical Depart Medication/Instructions New, Converted or Re-Newed RX: Other (pt to hold plavix and ASA until Monday) Patient Instructions Follow up Appt: Make appointment for 1 week. [phone] Instructions: No strenuous activity. May shower in 24 hours, no tub bath or soaking. Use incentive spirometer at home as directed. No Smoking Symptoms to Report: Appetite Changes, Extremity Discoloration, Numbness/Tingling, Swelling Increased, Bleeding Excessive, Eyesight Changes, Pain Increased, Urine Color Change, Constipation(Persistent), Fever over 101 degree F, Pain/Pressure in chest, Urinating Difficulty, Cough Up/Vomit Blood, Heart Beat Irreg/Pounding, Pain/Pressure in jaw, Cramps in feet or legs, Lightheadedness, Pain/Pressure in shoulder, Diarrhea(Persistent), Memory Changes Suddenly, Questions/Concerns, Weight gain consecutive days, Dizziness/Fainting, Nausea/Vomiting, Shortness of Breath, Weight gain over 2 pounds If questions or concerns contact your physician Or seek help at emergency department. Activity Activity as Tolerated: Yes Driving Instructions: No Driving/Refer to Dr. Hobbs Discharge Diet: No Restrictions Diet After 24 Hours: Clear Liquid if Nauseous If Any Problems/Questions/Issu: Contact Your Physician, Go to Emergency Room Skin/Wound Care Infection Signs and Symptoms: Increased Redness, Foul Odor of Wound, Increased Drainage, Skin Itchy or Has a Rash, Increased Swelling, Temperature Above 101 F Bathing Instructions: KEVON Bullock DO Mar 27, 2020 11:25
[2020-03-27] MEDS ORDERED: PANTOPRAZOLE 40 MG (PROTONIX) TAB PO SCH (21:00)
--- NOTE | 2020-03-30 06:24 | Physician Query Clarification ---
PQ-Link Infection to Dev/Proc Admission/Discharge Admission Date: Mar 25, 2020 at 04:44 Discharge Date: Mar 27, 2020 at 14:26 Dr. Bashir Castano, The medical record reflects the following clinical scenario: History/Risk Factors: Patient is a 80 year old female that presents to the ED via EMS from home for rectal bleeding. one episode of dark tarry stool followed by bright red blood per rectum. patient reports having had EGD done last week that showed ulcers and she had a colonoscopy where she had several polyps removed. Hand P, 03/25: Blood per rectum suspect upper, vs lower, anemia due to acute blood loss,on long-term antiplates. EGD Report, 03/25: Patient jose recent EGD with biopsies and colonoscopy with polypectomies. The patient has started having blood per rectum EGD reveled some gastric ulcers and gastritis and no active bleeding. Colonoscopy,03/26: The patient had three spots that we were able to see, where she had previous polypectomies two of them looked like they had been bleeding. bleeding controlled with epinephrine, post operaive diagnosis is Gastrointestinal bleed plus healing polypectomy areas. Clinical Findings: HGB-6.5, 6.4 L, HCT-2.4, 2.5L Treatment: Epinephrine injection Question: Can you specify if the GI Bleed is due to/associated with Previous Polypectomy? Please document a response in Progress Note or Discharge Summary. 1. Yes - GI Bleed is due to/associated with Previous Polypectomy. 2. No - GI Bleed is not due to/associated with Previous Polypectomy. 3. Other, with explanation of the clinical findings. 4. Clinically undetermined, no explanation for the clinical findings. PHYSICIAN RESPONSE Specify if infection: 1 Please remember a lack of response to the above will prompt a phone page by CDI/Coding staff. In responding to this query, please exercise your independent professional judgment. The purpose of this communication is to more accurately reflect the complexity of your patients condition. The fact that a question is asked does not imply that any particular answer is desired or expected. Thank you for your timely response to this clarification. Requestors name: [ ] Phone # [ ] THIS PHYSICIAN QUERY FORM IS A PERMANENT PART OF THE MEDICAL RECORD LENIN JOSEPH Mar 30, 2020 06:24 BASHIR CASTANO DO Mar 30, 2020 08:24
== END 2020-03-27 14:26 | disposition home or self-care (01) | DRG 920 ==
LOC: EDUNIT# 03:04 → ER 03:05 → 4TH 04:44
PROVIDERS: ADMIT Surgery; ATTEND Surgery
PROC: 0DJ08ZZ Inspection of Upper Intestinal Tract, Via Natural or Artificial Opening Endoscopic (ICD-10-PCS; 2020-03-25)
PROC: 0W3P8ZZ Control Bleeding in Gastrointestinal Tract, Via Natural or Artificial Opening Endoscopic (ICD-10-PCS; principal; 2020-03-26 11:03)
DX: K91.840 Postprocedural hemorrhage of a digestive system organ or structure following a digestive system procedure (principal); D62 Acute posthemorrhagic anemia; I25.10 Atherosclerotic heart disease of native coronary artery without angina pectoris; E78.00 Pure hypercholesterolemia, unspecified; I10 Essential (primary) hypertension; G43.909 Migraine, unspecified, not intractable, without status migrainosus; K21.9 Gastro-esophageal reflux disease without esophagitis; E03.9 Hypothyroidism, unspecified; F41.9 Anxiety disorder, unspecified; K25.9 Gastric ulcer, unspecified as acute or chronic, without hemorrhage or perforation; K29.70 Gastritis, unspecified, without bleeding; K64.8 Other hemorrhoids; K57.30 Diverticulosis of large intestine without perforation or abscess without bleeding
CPT/HCPCS: 36415; 80053; 82274; 85014; 85018; 85025; 86850; 86900; 86901; 86920; 86945; 86999; 87081; 87635

== ENCOUNTER → 2020-09-23 | Outpatient (CLI) | payer MEDICARE, MEDICAID ==
[~2020-09-23] MED LIST changes: +AMLO-251 PO; -AMLO10TA7 PO; +FLUT16SP22 NSEACH; +MTP25TSR PO; -OXYC-471 PO; +OXYC1TAB11 PO; +SERT-413 PO; -SERT50TA9 PO; +SUCR1TAB PO
--- NOTE | 2020-09-23 09:34 | Diagnostic Imaging Report ---
PROCEDURE: US Gallbladder. TECHNIQUE: Multiple Real-time grayscale images were obtained over the right upper quadrant in various projections. INDICATION: Right upper quadrant pain. FINDINGS: The liver is normal in size at 15 cm. The portal vein is patent and shows normal direction of flow. No liver mass is detected. The gallbladder is without stones or sludge. No wall thickening or pericholecystic fluid is seen. There is no biliary ductal dilatation. The pancreas is unremarkable. The aorta is nonaneurysmal. The IVC is patent. The right kidney is without calculus or hydronephrosis. There is no ascites. IMPRESSION: Unremarkable right upper quadrant ultrasound. There is no evidence of cholelithiasis or acute cholecystitis. Dictated by: Dictated on workstation # [id number]
== END ==
LOC: RAD 08:30
PROVIDERS: ATTEND Surgery
DX: R10.11 Right upper quadrant pain (principal)
CPT/HCPCS: 76705

== ENCOUNTER → 2020-10-12 | Outpatient (CLI) | payer MEDICARE, MEDICAID ==
[~2020-10-12] MED LIST changes: +CATHETER FLUSH 10 ML SYR IV PRN
--- NOTE | 2020-10-12 12:38 | Diagnostic Imaging Report ---
Nuclear medicine pelvis scan with ejection fraction. Indication: Abdominal pain There are no prior nuclear medicine studies available for comparison. The gallbladder ultrasound exam performed on 09/23/2020 failed to show any sign of cholelithiasis or acute cholecystitis. On this study there is uptake of the radiotracer by the gallbladder before 30 minutes. This would weigh against the diagnosis of acute cholecystitis. There is also extension of the radiotracer into the small bowel indicating the common bile duct is not obstructed. The ejection fraction is 70.2% (normal greater than 35%). Impression: 1. There is no evidence for acute cholecystitis or for obstruction of the common bile duct. 2. Ejection fraction is 70.2% and well within normal limits. Dictated by: Dictated on workstation # [id number]
== END ==
LOC: CARD 09:00
PROVIDERS: ATTEND Surgery
DX: R10.11 Right upper quadrant pain (principal)
CPT/HCPCS: 78227; A9537

== ENCOUNTER → 2020-11-02 | Outpatient (CLI) | payer MEDICARE, MEDICAID ==
[~2020-11-02] MED LIST changes: -CATHETER FLUSH 10 ML SYR IV PRN
== END ==
LOC: LAB 12:38
PROVIDERS: ATTEND Family Medicine
DX: N39.0 Urinary tract infection, site not specified (principal)
CPT/HCPCS: 87077; 87088; 87186

== ENCOUNTER 2021-01-07 10:29 | Outpatient (CLI) | payer MEDICARE, MEDICAID ==
[~2021-01-07] VITALS: Ht 170.2 cm; Wt 85.5 kg
[2021-01-07 10:38] VITALS: BP 167/73
[2021-01-07 11:17] LABS: BASOPHILS % (AUTO) 1 % (0-10); EOSINOPHILS # (AUTO) 0.2 10^3/uL (0.0-0.3); EOSINOPHILS % (AUTO) 3 % (0-10); HEMATOCRIT 38 % (35-52); HEMOGLOBIN 12.3 g/dL (11.5-16.0); LYMPHOCYTES # (AUTO) 2.2 10^3/uL (1.0-4.0); LYMPHOCYTES % (AUTO) 34 % (12-44); MEAN CORPUSCULAR HEMOGLOBIN 30 pg (25-34); MEAN CORPUSCULAR HGB CONC 32 g/dL (32-36); MEAN CORPUSCULAR VOLUME 94 fL (80-99); MEAN PLATELET VOLUME 10.6 fL (9.0-12.2); MONOCYTES # (AUTO) 0.5 10^3/uL (0.0-1.0); MONOCYTES % (AUTO) 8 % (0-12); NEUTROPHILS # (AUTO) 3.4 10^3/uL (1.8-7.8); NEUTROPHILS % (AUTO) 54 % (42-75); PLATELET COUNT 177 10^3/uL (130-400); WHITE BLOOD COUNT 6.3 10^3/uL (4.3-11.0)
[2021-01-07 11:27] LABS: CALCIUM 8.9 MG/DL (8.5-10.1); CREATININE SERUM 0.96 MG/DL (0.60-1.30); POTASSIUM 3.9 MMOL/L (3.6-5.0)
--- NOTE | 2021-01-07 12:42 | Diagnostic Imaging Report ---
CLINICAL INDICATION: Preop chest x-ray. EXAM: Chest x-ray PA and lateral views. COMPARISONS: None. FINDINGS: Lungs/pleura: There is mild bibasilar atelectasis. There is no lung infiltrate. There is no pneumothorax. There is no pleural effusion. Mediastinum: Unremarkable. Pulmonary vasculature: Unremarkable. Heart: Unremarkable. Bones/extrathoracic soft tissue: There are degenerative spurs involving the thoracic spine. IMPRESSION: There is no radiographic evidence of acute cardiopulmonary process. There is mild bibasilar atelectasis. Dictated by: Dictated on workstation # [id number]
== END 2021-01-07 11:30 | disposition home or self-care (01) ==
LOC: PREOP 10:29
PROVIDERS: ATTEND Otolaryngology Otolaryngology/Facial Plastic Surgery
DX: Z01.812 Encounter for preprocedural laboratory examination (principal); Z01.810 Encounter for preprocedural cardiovascular examination; J98.11 Atelectasis; C44.91 Basal cell carcinoma of skin, unspecified
CPT/HCPCS: 36415; 71046; 80048; 85025; 87081; 93005

== ENCOUNTER 2021-01-15 06:05 | Day surgery (SDC) | payer MEDICARE, MEDICAID ==
[2021-01-15] VITALS (11 sets, daily range): BP systolic 139–171; BP diastolic 57–88
[~2021-01-15] VITALS: Ht 170.2 cm; Wt 85.5 kg
[2021-01-15] MEDS ORDERED: ASPI-1238 PO (06:52)
[2021-01-15] MEDS ORDERED: CLOP75TA69 PO (06:52)
[2021-01-15] MEDS ORDERED: LACTATED RINGERS 1,000 ML IV PRN (07:00)
--- NOTE | 2021-01-15 07:03 | Progress Note-Pre Operative ---
Pre-Operative Progress Note H&P Reviewed The H&P was reviewed, patient examined and no changes noted. Date Seen by Provider: Jan 15, 2021 Time Seen by Provider: 06:30 Date H&P Reviewed: Jan 15, 2021 Time H&P Reviewed: 06:30 Pre-Operative Diagnosis: Skin Cancer Right Shinto, Left Nasal Lesion MODE CABRALES MD Jan 15, 2021 07:03
[2021-01-15] MEDS ORDERED: ONDANSETRON 4 MG/2 ML (SDV) Z0FRAN ONE (07:20)
[2021-01-15] MEDS ORDERED: fentaNYL INJ 100 MCG/2 ML AMP ONE (07:20)
[2021-01-15] MEDS ORDERED: SEVOFLURANE (ULTANE) 15 ML INHAL SOLN ONE ×2 (07:20→09:18)
[2021-01-15] MEDS ORDERED: proPOfol 200 MG/20 ML (DIPRIVAN) VIAL IV ONE (07:20)
[2021-01-15] MEDS ORDERED: LIDOCAINE PF 2% 5 ML (XYLOCAINE) VIAL ONE (07:20)
[2021-01-15] MEDS ORDERED: MUPIROCIN 2% OINT 22 GM (BACTROBAN) TUBE ONE (07:25)
[2021-01-15] MEDS ORDERED: LIDOCAINE/EPI 1%-1:100,000 (XYLOCAINE) 20ML ONE (07:25)
--- NOTE | 2021-01-15 08:54 | Progress Note-Post Operative ---
Post-Operative Progess Note Surgeon (s)/Surface Hydrologist (s) Surgeon MODE CABRALES MD Surface Hydrologist n/a Pre-Operative Diagnosis LESIONS RIGHT ADVENTIST, LEFT NOSE Post-Operative Diagnosis same Post-Op Procedure Note Date of Procedure: Jan 15, 2021 Name of Procedure Performed: Excision of Right Methodist with INtermediate Repair, Excison of Left Nasal Alar Lesion with Intermediate Repair Description & Findings Description and Findings: n/a Anesthesia Type lma Estimated Blood Loss minimal Packing none. Specimen(s) collected/removed right shinto, left nasal alae MODE CABRALES MD Jan 15, 2021 08:54
[2021-01-15] MEDS ORDERED: ACETAMINOPHEN 325 MG TABLET PO PRN (09:00)
[2021-01-15] MEDS ORDERED: HYDROcodone/APAP 5 MG/325 MG (LORTAB) TAB PO PRN (09:00)
--- NOTE | 2021-01-15 09:44 | Anesthesia-General Post-Op ---
General Patient Condition Mental Status/LOC: Same as Preop Cardiovascular: Satisfactory Nausea/Vomiting: Absent Respiratory: Satisfactory Pain: Controlled Complications: Absent Post Op Complications Complications None Follow Up Care/Instructions Patient Instructions None needed. Anesthesia/Patient Condition Patient Condition Patient is doing well, no complaints, stable vital signs, no apparent adverse anesthesia problems. MARYELLEN HERNANDEZ DO Jan 15, 2021 09:44
[2021-01-15] MEDS ORDERED: morphine INJ 10 MG/ML 1ML (SYR OR VIAL) IVP ONE (09:45)
[2021-01-15] MEDS ORDERED: ONDANSETRON 4 MG/2 ML (SDV) Z0FRAN IVP PRN (09:45)
[2021-01-15] MEDS ORDERED: ACHD5005 PO (10:48)
[2021-01-15] MEDS ORDERED: CEPH500T PO (10:48)
== END 2021-01-15 11:35 | disposition home or self-care (01) ==
LOC: SDC 06:05
PROVIDERS: ATTEND Otolaryngology Otolaryngology/Facial Plastic Surgery
DX: C44.311 Basal cell carcinoma of skin of nose (principal); C44.319 Basal cell carcinoma of skin of other parts of face; D09.8 Carcinoma in situ of other specified sites; E03.9 Hypothyroidism, unspecified; I10 Essential (primary) hypertension; I25.10 Atherosclerotic heart disease of native coronary artery without angina pectoris; I73.9 Peripheral vascular disease, unspecified; K21.9 Gastro-esophageal reflux disease without esophagitis; K52.9 Noninfective gastroenteritis and colitis, unspecified; G43.909 Migraine, unspecified, not intractable, without status migrainosus; Z98.890 Other specified postprocedural states; Z79.899 Other long term (current) drug therapy; Z79.890 Hormone replacement therapy
CPT/HCPCS: 87081; 88305; 88331; 88332

== ENCOUNTER 2021-02-15 14:59 | Emergency (ER) | payer MEDICARE, MEDICAID ==
[~2021-02-15] VITALS: Ht 170.2 cm; Wt 81.6 kg
[~2021-02-15 14:59] MED LIST changes: +CEPH500T PO; +CLOP75TA69 PO
--- NOTE | 2021-02-15 15:39 | ED General ---
General Stated Complaint: FEVER / CONGESTION / COUGH Source of Information: Patient Exam Limitations: No Limitations History of Present Illness Date Seen by Provider: Feb 15, 2021 Time Seen by Provider: 15:39 Initial Comments This is a well-appearing 80-year-old female who presented to the ER for a Covid test. States that she has been having cough for the past couple days and her son would like her tested. She is unable to find any facilities open due to the holiday. Has no other complaints at this time. Denies fever, chills, shortness of breath, chest pain, nausea/vomiting/diarrhea, abdominal pain. Allergies and Home Medications Allergies Coded Allergies: Sulfa (Sulfonamide Antibiotics) (Verified Allergy, Intermediate, CONFUSED, 03/08/16) Patient Home Medication List Home Medication List Reviewed: Yes Acetaminophen (Tylenol Extra Strength) 500 Mg Tablet, 1,000 MG PO Q8H PRN for PAIN-MILD (1-4), (Reported) Entered as Reported by: FOX NICE on 11/27/19 0900 Allopurinol (Allopurinol) 100 Mg Tablet, 100 MG PO BID, (Reported) Entered as Reported by: KATHE PEDERSON on 03/08/16 1343 Amlodipine Besylate (Amlodipine Besylate) 10 Mg Tablet, 10 MG PO DAILY, (Reported) Entered as Reported by: KATHE PEDERSON on 03/08/16 1343 Atorvastatin Calcium (Atorvastatin Calcium) 40 Mg Tablet, 40 MG PO HS, (Reported) Entered as Reported by: KATHE PEDERSON on 03/08/16 1343 Cephalexin (Cephalexin) 500 Mg Tablet, 500 MG PO TID Prescribed by: ROSE DIEGO on 01/15/21 1048 Clonazepam (Clonazepam) 0.5 Mg Tablet, 0.5 MG PO TID, (Reported) Entered as Reported by: KATHE PEDERSON on 03/08/16 1343 Fluticasone Propionate (Fluticasone Propionate) 16 Gm [place].susp, 1 SPRAY NSEACH BID PRN for CONGESTION, (Reported) Entered as Reported by: FOX NICE on 03/26/20 0959 Hydrocodone/Acetaminophen (Hydrocodone-Acetamin 5-325 mg) 1 Each Tablet, 1 TAB PO Q4H PRN for PAIN-MODERATE (5-7) Prescribed by: ROSE HAMLINIM on 01/15/21 1048 Levothyroxine Sodium (Levothyroxine Sodium) 125 Mcg Tablet, 125 MCG PO DAILY, (Reported) Entered as Reported by: FOX NICE on 11/27/19 0900 Loperamide HCl (Imodium A-D) 2 Mg Tablet, 2 MG PO DAILY PRN for DIARRHEA, (Reported) Entered as Reported by: FOX NICE on 11/27/19 0900 Metoprolol Succinate (Metoprolol Succinate) 25 Mg Tab.er.24h, 25 MG PO DAILY, (Reported) Entered as Reported by: FOX NICE on 03/26/20 0959 Pantoprazole Sodium (Pantoprazole Sodium) 40 Mg Tablet.dr, 40 MG PO BID, (Reported) Entered as Reported by: KATHE PEDERSON on 03/08/16 1343 Sertraline HCl (Sertraline HCl) 50 Mg Tablet, 50 MG PO DAILY, (Reported) Entered as Reported by: MALINDA CARTAGENA on 12/05/18 1210 Sucralfate (Sucralfate) 1 Gm Tablet, 1 GM PO QID, (Reported) Entered as Reported by: FOX NICE on 03/26/20 0959 Valsartan (Diovan) 320 Mg Tab, 160 MG PO DAILY, (Reported) Entered as Reported by: MALINDA CARTAGENA on 12/05/18 1210 Review of Systems Review of Systems Constitutional: no symptoms reported EENTM: no symptoms reported Respiratory: cough Cardiovascular: no symptoms reported Gastrointestinal: no symptoms reported Genitourinary: no symptoms reported Musculoskeletal: no symptoms reported Skin: no symptoms reported Psychiatric/Neurological: No Symptoms Reported Hematologic/Lymphatic: No Symptoms Reported Immunological/Allergic: no symptoms reported Past Xlkmnxk-Stibcv-Twqucn Hx Immunizations Up To Date Tetanus Booster (TDap): Unknown Seasonal Allergies Seasonal Allergies: Yes Past Medical History Surgeries: Yes (ANKLE FX, several skin lesions, ) Hysterectomy Respiratory: No Currently Using CPAP: No Currently Using BIPAP: No Cardiac: Yes Coronary Artery Disease, High Cholesterol, Hypertension Neurological: Yes Headaches /Migraines 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 Sexually Transmitted Disease: Yes HIV/AIDS: No Genitourinary: No Gastrointestinal: Yes Gastroesophageal Reflux, Chronic Diarrhea Musculoskeletal: No Endocrine: Yes Hypothyroidsim HEENT: Yes Cataract Loss of Vision: Bilateral Hearing Impairment: Hard of Hearing, Bilateral Hearing Aide Cancer: Yes Skin What Type of Treatment Did You: Surgical Intervention Psychosocial: Yes Anxiety Integumentary: Yes (skin lesions) Blood Disorders: No Adverse Reaction/Blood Tranf: No (N/A) Family Medical History COPD G8 SISTER Cardiovascular disease 19 FATHER G8 SISTER G8 SISTER Diabetes mellitus G8 BROTHER G8 SISTER FH: lung cancer G8 SISTER Heart Disease, Cancer, Diabetes Physical Exam Vital Signs Vital Signs - First Documented 02/15/21 02/15/21 15:21 16:58 Temp 36.2 Pulse 57 Resp 18 B/P (MAP) 175/78 (110) Pulse Ox 97 O2 Delivery Room Air Capillary Refill : Height, Weight, BMI Height: 5'7.00" Weight: 220lbs. 0.0oz. [id number]; 29.51 BMI Method: General Appearance: No Apparent Distress, WD/WN Eyes: Bilateral Eye Normal Inspection, Bilateral Eye PERRL, Bilateral Eye EOMI HEENT: PERRL/EOMI, TMs Normal, Normal ENT Inspection, Pharynx Normal, Moist Mucous Membranes; No Pharyngeal Erythema, No Tonsillar Exudate, No Tonsillar Enlargement Neck: Full Range of Motion, Normal Inspection, Supple Respiratory: Lungs Clear, Normal Breath Sounds, No Accessory Muscle Use, No Respiratory Distress Cardiovascular: Regular Rate, Rhythm, No Edema Gastrointestinal: Normal Bowel Sounds, No Organomegaly, Non Tender, Soft Back: Normal Inspection Extremity: Normal Inspection, Normal Range of Motion Neurologic/Psychiatric: Alert, Oriented x3, No Motor/Sensory Deficits, Normal Mood/Affect Skin: Normal Color, Warm/Dry Progress/Results/Core Measures Suspected Sepsis SIRS Temperature: Pulse: Respiratory Rate: Blood Pressure / Mean: Results/Orders Lab Results Laboratory Tests Test 02/15/21 15:29 Range/Units Influenza Type A (RT-PCR) Not Detected Not Detecte Influenza Type B (RT-PCR) Not Detected Not Detecte SARS-CoV-2 RNA (RT-PCR) Not Detected Not Detecte My Orders Orders - JAMAAL MUHAMMAD APRN Covid 19 Inhouse Test (02/15/21 15:38) Influenza A And B By Pcr (02/15/21 15:38) Isolation Central Supply Req (02/15/21 15:38) Vital Signs/I&O 02/15/21 02/15/21 15:21 16:58 Temp 36.2 Pulse 57 60 Resp 18 18 B/P (MAP) 175/78 (110) 146/80 Pulse Ox 97 98 O2 Delivery Room Air Capillary Refill : Departure Impression Primary Impression: Cough Disposition: HOME, SELF-CARE Condition: Stable/Unchanged Departure-Patient Inst. Decision time for Depature: 16:30 Referrals: AKANKSHA POLANCO DO (PCP/Family) Primary Care Physician Patient Instructions: Cough, Adult ED Add. Discharge Instructions: Plan: 1. Follow up with your doctor if your symptoms persist. 2. If your symptoms worsen and you would like to have COVID recheck, [facility] has drive through COVID testing Monday through Monday 7am-2pm. 3. Drink plenty of fluids. 4. Return for any new, concerning, or worsening symptoms. JAMAAL MUHAMMAD QUILL FIXER Feb 15, 2021 15:39
[2021-02-15 16:58] VITALS: BP 146/80
== END 2021-02-15 16:58 | disposition home or self-care (01) ==
LOC: EDUNIT# 14:59 → ER 15:00
DX: R05 Cough (principal); I10 Essential (primary) hypertension; E78.00 Pure hypercholesterolemia, unspecified; I25.10 Atherosclerotic heart disease of native coronary artery without angina pectoris; K21.9 Gastro-esophageal reflux disease without esophagitis; F41.9 Anxiety disorder, unspecified; E03.9 Hypothyroidism, unspecified; Z20.822 Contact with and (suspected) exposure to COVID-19; Z79.899 Other long term (current) drug therapy; Z79.890 Hormone replacement therapy
CPT/HCPCS: 87636; 99282

== ENCOUNTER → 2021-09-03 | Outpatient (CLI) | payer MEDICARE, MEDICAID ==
[2021-09-03 14:06] LABS: HEMATOCRIT 41 % (35-52); HEMOGLOBIN 13.3 g/dL (11.5-16.0); MEAN CORPUSCULAR HEMOGLOBIN 30 pg (25-34); MEAN CORPUSCULAR HGB CONC 32 g/dL (32-36); MEAN CORPUSCULAR VOLUME 93 fL (80-99); MEAN PLATELET VOLUME 10.1 fL (9.0-12.2); PLATELET COUNT 227 10^3/uL (130-400); WHITE BLOOD COUNT 7.9 10^3/uL (4.3-11.0)
[2021-09-03 14:23] LABS: ALBUMIN 4.1 GM/DL (3.2-4.5); POTASSIUM 3.9 MMOL/L (3.6-5.0)
[2021-09-03 14:24] LABS: CALCIUM 9.8 MG/DL (8.5-10.1)
[2021-09-03 14:26] LABS: TOTAL PROTEIN 6.6 GM/DL (6.4-8.2)
[2021-09-03 14:27] LABS: BILIRUBIN,TOTAL 0.3 MG/DL (0.1-1.0)
[2021-09-03 14:29] LABS: CREATININE SERUM 0.9 MG/DL (0.60-1.30)
== END ==
LOC: LAB 13:39
PROVIDERS: ATTEND Family Medicine
DX: N39.0 Urinary tract infection, site not specified (principal); I10 Essential (primary) hypertension
CPT/HCPCS: 36415; 80053; 85027; 87077; 87088; 87186

== ENCOUNTER → 2022-04-04 | Outpatient (CLI) | payer MEDICARE, MEDICAID ==
[~2022-04-04] MED LIST changes: -OLME20TA21 PO; +OLME20TA75 PO
[2022-04-04 13:39] LABS: BILIRUBIN,URINE NEGATIVE (NEGATIVE); CLARITY,URINE CLOUDY; COLOR,URINE YELLOW; GLUCOSE, URINE (UA) NEGATIVE (NEGATIVE); KETONES,URINE NEGATIVE (NEGATIVE); LEUKOCYTE ESTERASE ,URINE 3+ (NEGATIVE); NITRITE,URINE POSITIVE (NEGATIVE); PH,URINE 5.5 (5-9); PROTEIN,URINE NEGATIVE (NEGATIVE)
[2022-04-04 13:47] LABS: BACTERIA,URINE LARGE /HPF; RENAL EPITHELIAL CELLS,URINE 0-2 /HPF; SQUAMOUS EPITHELIAL CELL,UR 0-2 /HPF; WBC,URINE 50-100 /HPF
== END ==
LOC: LAB 13:03
PROVIDERS: ATTEND Family Medicine
DX: N39.0 Urinary tract infection, site not specified (principal)
CPT/HCPCS: 81000; 87077; 87088; 87186

== ENCOUNTER 2022-09-17 21:33 | Emergency (ER) | payer MEDICARE, MEDICAID ==
[~2022-09-17] VITALS: Ht 170 cm; Wt 88.5 kg
[~2022-09-17 21:33] MED LIST changes: +CLOP-31 PO; -CLOP75TA69 PO
--- NOTE | 2022-09-17 21:49 | ED Head Injury ---
General Chief Complaint: Head/Cervical Problems Stated Complaint: FALL/HEAD INJURY Nursing Triage Note: PT BROUGHT IN BY EMS AFTER SHE FELL WHILE GETTING OUT OF HER CAR AND HIT HEAD ON PAVEMENT. DENIES LOC. NOT ON THINNERS. PT C/O PAIN IN HEAD AND NECK. BLEEDING PRESENT IN WHAT APPEARS TO BE MULTIPLE SPOTS ON BACK OF HEAD. Source: EMS History of Present Illness Date Seen by Provider: Sep 17, 2022 Time Seen by Provider: 21:49 Initial Comments Patient is an 82-year-old female who presents to the emergency room after a mechanical trip and fall in the [employer] parking lot. Patient states that she "just tripped". Fell backwards hitting her head on the concrete. No loss of consciousness reported. Patient was assisted by passerby's. Noted to have bleeding from the back of the head. Denies any other complaints of injury. No chest pain, abdominal pain. No extremity pain. Is not nauseous. States her head feels a little better now than it did when she first fell. Initial reports of being on blood thinners however medicine reconciliation does not reveal any platelet inhibitors or other anticoagulants. Occurred: just prior to arrival Severity: moderate Location: occipital Method of Injury: fell Loss of Consciousness: no loss of consciousness Associated Systoms: Denies Symptoms Allergies and Home Medications Allergies Coded Allergies: Sulfa (Sulfonamide Antibiotics) (Verified Allergy, Intermediate, CONFUSED, 03/08/16) Patient Home Medication List Home Medication List Reviewed: Yes Acetaminophen (Tylenol Extra Strength) 500 Mg Tablet, 1,000 MG PO Q8H PRN for PAIN-MILD (1-4), (Reported) Entered as Reported by: FOX NICE on 11/27/19 0900 Allopurinol (Allopurinol) 100 Mg Tablet, 100 MG PO BID, (Reported) Entered as Reported by: KATHE PEDERSON on 03/08/16 1343 Amlodipine Besylate (Amlodipine Besylate) 10 Mg Tablet, 10 MG PO DAILY, (Reported) Entered as Reported by: KATHE PEDERSON on 03/08/16 1343 Atorvastatin Calcium (Atorvastatin Calcium) 40 Mg Tablet, 40 MG PO HS, (Reported) Entered as Reported by: KATHE PEDERSON on 03/08/16 1343 Cephalexin (Cephalexin) 500 Mg Tablet, 500 MG PO TID Prescribed by: ROSE HAMLINIM on 01/15/21 1048 Clonazepam (Clonazepam) 0.5 Mg Tablet, 0.5 MG PO TID, (Reported) Entered as Reported by: KATHE PEDERSON on 03/08/16 1343 Fluticasone Propionate (Fluticasone Propionate) 16 Gm Nelson.susp, 1 SPRAY NSEACH BID PRN for CONGESTION, (Reported) Entered as Reported by: FOX NICE on 03/26/20 0959 Hydrocodone/Acetaminophen (Hydrocodone-Acetamin 5-325 mg) 1 Each Tablet, 1 TAB PO Q4H PRN for PAIN-MODERATE (5-7) Prescribed by: ROSE DIEGO on 01/15/21 1048 Levothyroxine Sodium (Levothyroxine Sodium) 125 Mcg Tablet, 125 MCG PO DAILY, (Reported) Entered as Reported by: FOX NICE on 11/27/19 0900 Loperamide HCl (Imodium A-D) 2 Mg Tablet, 2 MG PO DAILY PRN for DIARRHEA, (Reported) Entered as Reported by: FOX NICE on 11/27/19 0900 Metoprolol Succinate (Metoprolol Succinate) 25 Mg Tab.er.24h, 25 MG PO DAILY, (Reported) Entered as Reported by: FOX NICE on 03/26/20 0959 Pantoprazole Sodium (Pantoprazole Sodium) 40 Mg Tablet.dr, 40 MG PO BID, (Reported) Entered as Reported by: KATHE PEDERSON on 03/08/16 1343 Sertraline HCl (Sertraline HCl) 50 Mg Tablet, 50 MG PO DAILY, (Reported) Entered as Reported by: MALINDA CARTAGENA on 12/05/18 1210 Sucralfate (Sucralfate) 1 Gm Tablet, 1 GM PO QID, (Reported) Entered as Reported by: FOX NICE on 03/26/20 0959 Valsartan (Diovan) 320 Mg Tab, 160 MG PO DAILY, (Reported) Entered as Reported by: MALINDA CARTAGENA on 12/05/18 1210 Review of Systems Review of Systems Constitutional: see HPI Eyes: No Symptoms Reported Ears, Nose, Mouth, Throat: no symptoms reported Respiratory: no symptoms reported Cardiovascular: no symptoms reported Gastrointestinal: no symptoms reported Musculoskeletal: no symptoms reported Skin: other (Laceration) Psychiatric/Neurological: Headache (Mild) Past Nbroapw-Mbicuy-Pdeonn Hx Patient Social History Tobacco Use?: No Substance use?: No Alcohol Use?: No Pt feels they are or have been: No Immunizations Up To Date Tetanus Booster (TDap): Unknown Influenza Vaccine Up-to-Date: No; Not Current First/Initial COVID19 Vaccinat: 2020 Second COVID19 Vaccination Paresh: 2020 Seasonal Allergies Seasonal Allergies: Yes Past Medical History Surgeries: Yes (ANKLE FX, several skin lesions, ) Hysterectomy Respiratory: No Currently Using CPAP: No Currently Using BIPAP: No Cardiac: Yes Coronary Artery Disease, High Cholesterol, Hypertension Neurological: Yes Headaches /Migraines Reproductive Disorders: No [employer] History: Hysterectomy Sexually Transmitted Disease: Yes HIV/AIDS: No Genitourinary: No Gastrointestinal: Yes Gastroesophageal Reflux, Chronic Diarrhea Musculoskeletal: No Endocrine: Yes Hypothyroidsim HEENT: Yes Cataract Loss of Vision: Bilateral Hearing Impairment: Hard of Hearing, Bilateral Hearing Aide Cancer: Yes Skin What Type of Treatment Did You: Surgical Intervention Psychosocial: Yes Anxiety Integumentary: Yes (skin lesions) Blood Disorders: No Adverse Reaction/Blood Tranf: No (N/A) Family Medical History COPD G8 SISTER Cardiovascular disease 19 FATHER G8 SISTER G8 SISTER Diabetes mellitus G8 BROTHER G8 SISTER FH: lung cancer G8 SISTER Heart Disease, Cancer, Diabetes Physical Exam Vital Signs Vital Signs - First Documented 09/17/22 21:35 Temp 36.6 Pulse 64 Resp 20 B/P (MAP) 154/77 (102) Pulse Ox 94 O2 Delivery Room Air Capillary Refill : Less Than 3 Seconds Height, Weight, BMI Height: 5'7.00" Weight: 220lbs. 0.0oz. [id number]; 30.00 BMI Method: General Appearance: WD/WN, no apparent distress HEENT: PERRL/EOMI, TMs normal Neck: non-tender, other (Cervical collar in place) Cardiovascular: regular rate, rhythm Respiratory: lungs clear, normal breath sounds, no respiratory distress, no accessory muscle use Gastrointestinal: non tender, soft Extremities: normal range of motion, non-tender, normal inspection Psychiatric: alert, oriented x 3 Crainal Nerves: normal hearing, normal speech, PERRL Motor/Sensory: no motor deficit, no sensory deficit Skin: normal color, warm/dry, other (2 cm vertical laceration noted at the occipital scalp. No active bleeding. Mildly tender to palpation.) [place] Coma Score Best Eye Response: (4) Open Spontaneously Best Verbal Response: (5) Oriented Best Motor Response: (6) Obeys Commands Procedures/Interventions Wound Location: Scalp Other Wound Location occiput Wound Length (cm): 2 Wound's Depth, Shape: superficial, linear Wound Explored: clean Irrigated w/ Saline (ccs): 2000 Anesthesia: 1% Lidocaine Volume Anesthetic (ccs): 3 Staple Repair: Stapler 35W (x4) Layer Closure?: 1 Progress/Results/Core Measures Results/Orders Lab Results Laboratory Tests Test 09/17/22 21:55 Range/Units White Blood Count 6.7 4.3-11.0 10^3/uL Red Blood Count 4.27 3.80-5.11 10^6/uL Hemoglobin 12.9 11.5-16.0 g/dL Hematocrit 39 35-52 % Mean Corpuscular Volume 92 80-99 fL Mean Corpuscular Hemoglobin 30 25-34 pg Mean Corpuscular Hemoglobin Concent 33 32-36 g/dL Red Cell Distribution Width 13.5 10.0-14.5 % Platelet Count 176 130-400 10^3/uL Mean Platelet Volume 10.8 9.0-12.2 fL Immature Granulocyte % (Auto) 0 % Neutrophils (%) (Auto) 57 42-75 % Lymphocytes (%) (Auto) 32 12-44 % Monocytes (%) (Auto) 8 0-12 % Eosinophils (%) (Auto) 2 0-10 % Basophils (%) (Auto) 1 0-10 % Neutrophils # (Auto) 3.8 1.8-7.8 10^3/uL Lymphocytes # (Auto) 2.2 1.0-4.0 10^3/uL Monocytes # (Auto) 0.5 0.0-1.0 10^3/uL Eosinophils # (Auto) 0.2 0.0-0.3 10^3/uL Basophils # (Auto) 0.0 0.0-0.1 10^3/uL Immature Granulocyte # (Auto) 0.0 0.0-0.1 10^3/uL Sodium Level 145 135-145 MMOL/L Potassium Level 3.7 3.6-5.0 MMOL/L Chloride Level 112 H 98-107 MMOL/L Carbon Dioxide Level 22 21-32 MMOL/L Anion Gap 11 5-14 MMOL/L Blood Urea Nitrogen 26 H 7-18 MG/DL Creatinine 1.01 0.60-1.30 MG/DL Estimat Glomerular Filtration Rate 56 BUN/Creatinine Ratio 26 Glucose Level 119 H 70-105 MG/DL Calcium Level 9.3 8.5-10.1 MG/DL My Orders Orders - WILL DIAZ MD Ed Iv/Invasive Line Start (09/17/22 21:48) Cbc With Automated Diff (09/17/22 21:48) Basic Metabolic Panel (09/17/22 21:48) Ct Head/Cervical Spine Wo (09/17/22 21:48) Dipht,Pertuss(Acell),Tet Adult (Boostrix (09/17/22 23:45) Lidocaine 1% Inj 10 Ml (Xylocaine 1% Inj (09/17/22 23:38) Medications Given in ED Current Medications Medications Dose Ordered Sig/Brian Route Start Time Stop Time Status Last Admin Dose Admin Diphtheria/ Tetanus/Acell Pertussis 0.5 ml ONCE ONCE IM 09/17/22 23:45 09/17/22 23:46 DC 09/17/22 23:41 0.5 ML Lidocaine HCl 10 ml STK-MED ONCE .ROUTE 09/17/22 23:38 09/17/22 23:42 DC 09/17/22 23:46 10 ML Vital Signs/I&O 09/17/22 09/18/22 21:35 00:22 Temp 36.6 36.4 Pulse 64 53 Resp 20 16 B/P (MAP) 154/77 (102) 178/88 Pulse Ox 94 95 O2 Delivery Room Air Room Air Blood Pressure Mean: 102 Progress Progress Note : Time: 00:00 Progress Note Patient seen and evaluated by me. Evaluation today includes physical exam, CBC, basic metabolic panel, CT scan of the head and cervical spine. Pertinent physical exam findings include well-developed well-nourished 82-year-old female who is alert and oriented. Cervical collar is in place. No tenderness palpated along the cervical spine through the cervical collar. No focal neurologic deficits. Scalp completely covered and coagulated blood. Laceration not initi ally observed secondary to bleeding. Bleeding is controlled at presentation. Vital signs are stable. Heart is regular, lungs are clear abdomen is soft. No extremity injuries palpated or observed. Differential diagnosis based on history and physical, intracranial hemorrhage/subdural/subarachnoid, anemia secondary to hemorrhage. Labs reviewed, CBC is normal, basic metabolic panel is normal. CT scan of the head and cervical spine read by [facility] demonstrates no intracranial abnormality and no cervical spine fracture or dislocation. Cervical collar was cleared and patient demonstrated active painless range of motion of the cervical spine. Scalp was cleansed thoroughly with saline and Betasept. Laceration identified at the occiput approximately 2 cm in length. No active bleeding. Wound was anesthetized with 1% lidocaine, stapler used to place 4 oliver with adequate closure. Patient instructed on wound care and staple removal in 10 days. Tetanus updated. Family member present at the bedside. All questions are sought and answered. Patient is discharged Diagnostic Imaging Diagonstic Imaging: CT Plain Films/CT/US/NM/MRI: c-spine, head Comments CT HEad and cervical spine - read by [facility] - no acute cspine fractures and no intracranial abnormality Departure Impression Primary Impression: Occipital scalp laceration Qualified Codes: S01.01XA - Laceration without foreign body of scalp, initial encounter Additional Impressions: Fall Qualified Codes: W19.XXXA - Unspecified fall, initial encounter Minor head injury without loss of consciousness Qualified Codes: S09.90XA - Unspecified injury of head, initial encounter Disposition: 01 HOME, SELF-CARE Condition: Improved Departure-Patient Inst. Decision time for Depature: 00:17 Referrals: AKANKSHA POLANCO DO (PCP/Family) Primary Care Physician Patient Instructions: Laceration Repair With [facility], Minor Head Injury Add. Discharge Instructions: You can wash the area where the laceration is on your scalp with soap and water, normal shampoo. Be careful when combing or brushing your hair so as not to pull the oliver. The oliver will need to be removed in 10 days. You can return to the emergency department and a nurse in triage can remove them for you. If you develop a severe headache, nausea and vomiting or any other emergent, concerning symptoms please return to the emergency room for reevaluation. You may experience some mild to moderate headache over the next couple of days with a little nausea and some extra fatigue. This is normal after head injury. You can take Tylenol extra strength tablets to every 6 hours as needed for mild to moderate headache. Follow-up with Dr. POLANCO as needed. Copy Copies To 1: AKANKSHA POLANCO KATHRYN M MD Sep 17, 2022 21:49
[2022-09-17 22:08] LABS: BASOPHILS % (AUTO) 1 % (0-10); EOSINOPHILS # (AUTO) 0.2 10^3/uL (0.0-0.3); EOSINOPHILS % (AUTO) 2 % (0-10); HEMATOCRIT 39 % (35-52); HEMOGLOBIN 12.9 g/dL (11.5-16.0); LYMPHOCYTES # (AUTO) 2.2 10^3/uL (1.0-4.0); LYMPHOCYTES % (AUTO) 32 % (12-44); MEAN CORPUSCULAR HEMOGLOBIN 30 pg (25-34); MEAN CORPUSCULAR HGB CONC 33 g/dL (32-36); MEAN CORPUSCULAR VOLUME 92 fL (80-99); MEAN PLATELET VOLUME 10.8 fL (9.0-12.2); MONOCYTES # (AUTO) 0.5 10^3/uL (0.0-1.0); MONOCYTES % (AUTO) 8 % (0-12); NEUTROPHILS # (AUTO) 3.8 10^3/uL (1.8-7.8); NEUTROPHILS % (AUTO) 57 % (42-75); PLATELET COUNT 176 10^3/uL (130-400); WHITE BLOOD COUNT 6.7 10^3/uL (4.3-11.0)
[2022-09-17 22:26] LABS: POTASSIUM 3.7 MMOL/L (3.6-5.0)
[2022-09-17 22:27] LABS: CALCIUM 9.3 MG/DL (8.5-10.1)
[2022-09-17 22:31] LABS: CREATININE SERUM 1.01 MG/DL (0.60-1.30)
[2022-09-17] MEDS ORDERED: LIDOCAINE 1% INJ 10 ML VIAL ONE (23:38)
[2022-09-17] MEDS ORDERED: TETANUS,DIPTH,PERTUSS P/F (BOOSTRIX) 0.5 ML VIAL IM ONE (23:45)
[2022-09-18 00:22] VITALS: BP 178/88
--- NOTE | 2022-09-18 07:36 | Diagnostic Imaging Report ---
PROCEDURE: CT head and CT cervical spine without contrast. TECHNIQUE: Multiple contiguous axial images were obtained through the brain and cervical spine without the use of intravenous contrast. Sagittal and coronal reformations through the cervical spine were then performed. Auto Exposure Controls were utilized during the CT exam to meet ALARA standards for radiation dose reduction. INDICATION: Fall, head injury, lacerations. No relevant comparison. CT HEAD: Cerebral cortical volume unremarkable for age. There is no hydrocephalus. There is periventricular white matter hypodensity symmetric, greatest along the anterior aspects of the lateral ventricles. While nonspecific, most consistent with small vessel sequelae. No abnormal extra-axial fluid collection and there was no hemorrhage. There is no calvarial fracture deformity. No pneumocephalus or hemo-sinus. No cortical edema. No sulcal effacement. The orbits appear nonacute. Cervical spine: Body heights normal. The alignment anatomic. No facet dislocation. No cervical fracture. No paraspinal hemorrhage. Central skull base intact. There is heavy carotid atherosclerotic vascular calcifications. No traumatic deformity to the tracheal cartilage or hyoid bone. Thoracic inlet and visualized pulmonary apices showed some mild apical groundglass density and septal thickening which may be inflammatory or mild edema. There is also atherosclerotic ectasia of the great vessels. IMPRESSION: CT HEAD: Mild chronic senescent changes with no hemorrhage, fracture or acute finding. CT cervical spine: Degenerative changes with no cervical spinal fracture or traumatic malalignment. Dictated by: Dictated on workstation # [id number]
== END 2022-09-18 00:26 | disposition home or self-care (01) ==
LOC: EDUNIT# 21:33 → ER 21:34
DX: S09.90XA Unspecified injury of head, initial encounter (principal); S01.01XA Laceration without foreign body of scalp, initial encounter; Z23 Encounter for immunization; W01.198A Fall on same level from slipping, tripping and stumbling with subsequent striking against other object, initial encounter; Y92.481 Parking lot as the place of occurrence of the external cause
CPT/HCPCS: 12001; 36415; 70450; 72125; 80048; 85025; 90715

== ENCOUNTER 2023-01-13 19:45 | Emergency (ER) | payer MEDICARE, MEDICAID ==
[~2023-01-13] VITALS: Ht 170 cm; Wt 86.0 kg
[2023-01-13 19:48] VITALS: BP 170/72
[2023-01-13] MEDS ORDERED: fentaNYL INJECTION 100 MCG/2 ML VIAL IVP STA ×2 (19:49→22:26)
--- NOTE | 2023-01-13 19:54 | ED Fall/Injury ---
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 POLANCO Allergies and Home Medications Allergies Coded Allergies: Sulfa (Sulfonamide Antibiotics) (Verified Allergy, Intermediate, CONFUSED, 03/08/16) Patient Home Medication List Home Medication List Reviewed: Yes Acetaminophen (Tylenol Extra Strength) 500 Mg Tablet, 1,000 MG PO Q8H PRN for PAIN-MILD (1-4), (Reported) Entered as Reported by: FOX NICE on 11/27/19 0900 Allopurinol (Allopurinol) 100 Mg Tablet, 100 MG PO BID, (Reported) Entered as Reported by: KATHE PEDERSON on 03/08/16 1343 Amlodipine Besylate (Amlodipine Besylate) 10 Mg Tablet, 10 MG PO DAILY, (Reported) Entered as Reported by: KATHE PEDERSON on 03/08/16 1343 Atorvastatin Calcium (Atorvastatin Calcium) 40 Mg Tablet, 40 MG PO HS, (Reported) Entered as Reported by: KATHE PEDERSON on 03/08/16 1343 Cephalexin (Cephalexin) 500 Mg Tablet, 500 MG PO TID Prescribed by: ROSE DIEGO on 01/15/21 1048 Clonazepam (Clonazepam) 0.5 Mg Tablet, 0.5 MG PO TID, (Reported) Entered as Reported by: KATHE PEDERSON on 03/08/16 1343 Fluticasone Propionate (Fluticasone Propionate) 16 Gm Fletcher.susp, 1 SPRAY NSEACH BID PRN for CONGESTION, (Reported) Entered as Reported by: FOX NICE on 03/26/20 0959 Hydrocodone/Acetaminophen (Hydrocodone-Acetamin 5-325 mg) 1 Each Tablet, 1 TAB PO Q4H PRN for PAIN-MODERATE (5-7) Prescribed by: AVTAR KEIM on 01/15/21 1048 Levothyroxine Sodium (Levothyroxine Sodium) 125 Mcg Tablet, 125 MCG PO DAILY, (Reported) Entered as Reported by: FOX NICE on 11/27/19 0900 Loperamide HCl (Imodium A-D) 2 Mg Tablet, 2 MG PO DAILY PRN for DIARRHEA, (Reported) Entered as Reported by: FOX NICE on 11/27/19 0900 Metoprolol Succinate (Metoprolol Succinate) 25 Mg Tab.er.24h, 25 MG PO DAILY, (Reported) Entered as Reported by: FOX NICE on 03/26/20 0959 Pantoprazole Sodium (Pantoprazole Sodium) 40 Mg Tablet.dr, 40 MG PO BID, (Reported) Entered as Reported by: KATHE PEDERSON on 03/08/16 1343 Sertraline HCl (Sertraline HCl) 50 Mg Tablet, 50 MG PO DAILY, (Reported) Entered as Reported by: MALINDA CARTGAENA on 12/05/18 1210 Sucralfate (Sucralfate) 1 Gm Tablet, 1 GM PO QID, (Reported) Entered as Reported by: FOX NICE on 03/26/20 0959 Valsartan (Diovan) 320 Mg Tab, 160 MG PO DAILY, (Reported) Entered as Reported by: MALINDA CARTAGENA on 12/05/18 1210 Review of Systems Review of Systems Constitutional: no symptoms reported Eyes: No Symptoms Reported Ears, Nose, Mouth, Throat: no symptoms reported Respiratory: no symptoms reported Cardiovascular: no symptoms reported Gastrointestinal: no symptoms reported Genitourinary: no symptoms reported Musculoskeletal: see HPI Skin: no symptoms reported Psychiatric/Neurological: No Symptoms Reported Past Wpdnvqx-Mmvjgo-Rpsmzt Hx Patient Social History Tobacco Use?: No Substance use?: No Alcohol Use?: No Immunizations Up To Date Tetanus Booster (TDap): Unknown First/Initial COVID19 Vaccinat: 2020 Second COVID19 Vaccination Paresh: 2020 Third COVID19 Vaccination Date: 2020 Seasonal Allergies Seasonal Allergies: Yes Past Medical History Surgery/Hospitalization HX: htn, high cholesterol, hypothyroid, gerd Surgeries: Yes (ANKLE FX, several skin lesions, ) Hysterectomy, Orthopedic Respiratory: No Currently Using CPAP: No Currently Using BIPAP: No Cardiac: Yes Coronary Artery Disease, High Cholesterol, Hypertension Neurological: Yes Headaches /Migraines 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, 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 Sexually Transmitted Disease: Yes HIV/AIDS: No Genitourinary: No Gastrointestinal: Yes Gastroesophageal Reflux, Chronic Diarrhea Musculoskeletal: Yes (ANKLE FX/SURGERY) Fractures Endocrine: Yes (OBESITY) Hypothyroidsim HEENT: Yes Cataract Loss of Vision: Bilateral Hearing Impairment: Hard of Hearing, Bilateral Hearing Aide Cancer: Yes Skin Did You Recieve Any Treatments: Yes What Type of Treatment Did You: Surgical Intervention Psychosocial: Yes Anxiety Integumentary: Yes (skin lesions) Blood Disorders: No Adverse Reaction/Blood Tranf: No (N/A) Family Medical History COPD G8 SISTER Cardiovascular disease 19 FATHER G8 SISTER G8 SISTER Diabetes mellitus G8 BROTHER G8 SISTER FH: lung cancer G8 SISTER Heart Disease, Cancer, Diabetes Physical Exam Vital Signs Vital Signs - First Documented 01/13/23 01/13/23 19:48 20:00 Pulse 50 Resp 16 B/P (MAP) 170/72 (104) Pulse Ox 93 O2 Delivery Nasal Cannula O2 Flow Rate 2.00 Capillary Refill : Height, Weight, BMI Height: 5'7.00" Weight: 220lbs. 0.0oz. 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 RIGHT LEG SHORTENED AND EXTERNALLY ROTATED. DISTAL MOTOR/SENSORY/VASUCLAR INTACT. 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, no motor/sensory deficits, alert, oriented x 3 Skin: normal color, warm/dry Tammie Coma Score Best Eye Response: (4) Open Spontaneously Best Verbal Response: (5) Oriented Best Motor Response: (6) Obeys Commands [place] Total: 15 Progress/Results/Core Measures Results/Orders Lab Results Laboratory Tests Test 01/13/23 19:53 01/13/23 19:56 Range/Units White Blood Count 8.0 4.3-11.0 10^3/uL Red Blood Count 4.41 3.80-5.11 10^6/uL Hemoglobin 13.6 11.5-16.0 g/dL Hematocrit 41 35-52 % Mean Corpuscular Volume 93 80-99 fL Mean Corpuscular Hemoglobin 31 25-34 pg Mean Corpuscular Hemoglobin Concent 33 32-36 g/dL Red Cell Distribution Width 14.0 10.0-14.5 % Platelet Count 208 130-400 10^3/uL Mean Platelet Volume 10.0 9.0-12.2 fL Immature Granulocyte % (Auto) 0 % Neutrophils (%) (Auto) 47 42-75 % Lymphocytes (%) (Auto) 41 12-44 % Monocytes (%) (Auto) 8 0-12 % Eosinophils (%) (Auto) 3 0-10 % Basophils (%) (Auto) 1 0-10 % Neutrophils # (Auto) 3.8 1.8-7.8 10^3/uL Lymphocytes # (Auto) 3.3 1.0-4.0 10^3/uL Monocytes # (Auto) 0.7 0.0-1.0 10^3/uL Eosinophils # (Auto) 0.3 0.0-0.3 10^3/uL Basophils # (Auto) 0.0 0.0-0.1 10^3/uL Immature Granulocyte # (Auto) 0.0 0.0-0.1 10^3/uL Prothrombin Time 13.0 12.2-14.7 SEC INR Comment 1.0 0.8-1.4 Activated Partial Thromboplast Time 25 24-35 SEC Sodium Level 142 135-145 MMOL/L Potassium Level 3.6 3.6-5.0 MMOL/L Chloride Level 111 H 98-107 MMOL/L Carbon Dioxide Level 19 L 21-32 MMOL/L Anion Gap 12 5-14 MMOL/L Blood Urea Nitrogen 22 H 7-18 MG/DL Creatinine 0.98 0.60-1.30 MG/DL Estimat Glomerular Filtration Rate 58 BUN/Creatinine Ratio 22 Glucose Level 109 H 70-105 MG/DL Calcium Level 9.5 8.5-10.1 MG/DL Corrected Calcium 9.2 8.5-10.1 MG/DL Total Bilirubin 0.5 0.1-1.0 MG/DL Aspartate Amino Transf (AST/SGOT) 17 5-34 U/L Alanine Aminotransferase (ALT/SGPT) 8 0-55 U/L Alkaline Phosphatase 88 40-136 U/L Total Protein 6.9 6.4-8.2 GM/DL Albumin 4.4 3.2-4.5 GM/DL Serum Alcohol < 10 <10 MG/DL Urine Color YELLOW Urine Clarity CLEAR Urine pH 6.0 5-9 Urine Specific [place] 1.010 L 1.016-1.022 Urine Protein TRACE H NEGATIVE Urine Glucose (UA) NEGATIVE NEGATIVE Urine Ketones NEGATIVE NEGATIVE Urine Nitrite POSITIVE H NEGATIVE Urine Bilirubin NEGATIVE NEGATIVE Urine Urobilinogen 0.2 < = 1.0 MG/DL Urine Leukocyte Esterase 2+ H NEGATIVE Urine RBC (Auto) NEGATIVE NEGATIVE Urine RBC NONE /HPF Urine WBC 50-100 H /HPF Urine Squamous Epithelial Cells 0-2 /HPF Urine Crystals NONE /LPF Urine Bacteria LARGE H /HPF Urine Casts PRESENT /LPF Urine Hyaline Casts RARE /LPF Urine Mucus NEGATIVE /LPF Urine Culture Indicated YES My Orders Orders - JANETTE RAMAN DO Ed Iv/Invasive Line Start (01/13/23 19:49) Catheter(Urinary) Insert & Ass 03,15 (01/13/23 19:49) Monitor-Rhythm Ecg Trace Only (01/13/23 19:49) Chest 1 View, Ap/Pa Only (01/13/23 19:49) Femur, Right, 2 Views (01/13/23 19:49) Knee, Right, 3 Views (01/13/23 19:49) Pelvis With Right Hip 2-3views (01/13/23 19:49) Alcohol (01/13/23 19:49) Cbc With Automated Diff (01/13/23 19:49) Comprehensive Metabolic Panel (01/13/23 19:49) Protime With Inr (01/13/23 19:49) Partial Thromboplastin Time (01/13/23 19:49) Ua Culture If Indicated (01/13/23 19:49) Ed Iv/Invasive Line Start (01/13/23 19:49) Lactated Ringers (Lr 1000 Ml Iv Solution (01/13/23 20:00) Fentanyl Inj (Sublimaze Injection) (01/13/23 19:49) Lidocaine 2% (Urojet) (Xylocaine Urojet) (01/13/23 20:00) Ct Head/Cervical Spine Wo (01/13/23 19:56) Ct Thoracic/Lumbar Spine Wo (01/13/23 19:56) Urine Culture (01/13/23 19:56) Ceftriaxone Iv/Im (Ceftriaxone Iv/Im) (01/13/23 20:30) Fentanyl Inj (Sublimaze Injection) (01/13/23 20:30) Fentanyl Inj (Sublimaze Injection) (01/13/23 22:26) Fentanyl Inj (Sublimaze Injection) (01/13/23 23:45) Ed Ortho/Other Supplies Order (01/13/23 23:31) Fentanyl Inj (Sublimaze Injection) (01/13/23 23:32) Medications Given in ED Vital Signs/I&O 01/13/23 01/13/23 19:48 20:00 Pulse 50 Resp 16 B/P (MAP) 170/72 (104) Pulse Ox 93 92 O2 Delivery Nasal Cannula O2 Flow Rate 2.00 Progress Progress Note : Progress Note GIVEN: -IV FLUIDS -FENTANYL -ROCEPHIN FOR UTI PERTINENT LABS: -CBC UNREMARKABLE -CMP UNREMARKABLE, BUN SLIGHTLY ELEVATED AT 22--GIVEN IV FLUIDS -UA SHOWS UTI NO DETERIORATION IN PT'S CONDITION DURING ER STAY FAMILY IS HERE WITH PT AND UPDATED THEM ON PT'S CONDITION AND NEED FOR TRANSFER DUE TO COMPLEXITY OF THE FRACTURE. REVIEWED PRIOR RECORDS Diagnostic Imaging Comments CT HEAD/CERVICAL SPINE--PER RADIOLOGIST REPORT AT 2159 FINDINGS: HEAD: Mild diffuse cerebral volume loss with proportional enlargement of the ventricles and sulci. Mild hypodensities throughout the supratentorial white matter of both cerebral hemispheres. No acute intracranial hemorrhage or abnormal extra-axial fluid collections are present. Calcification of the intracranial ICAs. No hyperdense vessel. The calvarium is intact. The mastoid air cells are clear. The visualized paranasal sinuses are clear. The orbits are normal. C-SPINE: Vertebral body height and alignment are preserved. No acute fracture, dislocation, or destructive osseous process. Multilevel facet hypertrophy without perched facets. There is multilevel cervical spondylosis. The paraspinous soft tissues are normal. The visualized thyroid gland is normal. The visualized lung apices are normal. IMPRESSION: 1. No acute intracranial abnormality. Chronic microangiopathy and volume loss. 2. Degenerative changes of the cervical spine without acute osseous abnormality. CT THORACIC/LUMBAR SPINE--PER RADIOLOGIST REPORT AT 2117 FINDINGS: The alignment of the thoracic and lumbar spine is normal. Vertebral body heights are normal and no fracture is seen. No significant facet hypertrophy or perched facets. Multilevel disc height loss within the lumbar spine. Degenerative changes of the spine with multilevel lumbar spondylosis. Limited views of the soft tissues show no abnormality. Vascular calcifications of the aorta without aneurysm. Atelectasis or fibrotic changes of the visualized lungs. IMPRESSION: No acute osseous abnormality of the thoracic or lumbar spine. CXR--PER RADIOLOGIST REPORT AT 2117 FINDINGS: Heart size is enlarged. The lungs are clear without consolidation, pleural effusion, or pneumothorax. The osseous structures are intact. IMPRESSION: No acute radiographic abnormality in the chest. PELVIS / RIGHT HIP XRAYS--PER RADIOLOGIST REPORT AT 2158 FINDINGS: There is no acute fracture, dislocation, or destructive osseous process. The joint spaces are normal. The soft tissues are normal. IMPRESSION: No acute osseous abnormality. RIGHT FEMUR XRAYS--PER RADIOLOGIST REPORT AT 2158 FINDINGS: There is an acute, oblique, displaced fracture of the distal right femur. There is medial and posterior subluxation of the distal femur. The proximal right femur and right hip joint are unremarkable. Lucency along the fracture site within the right leg, likely edema or hematoma. IMPRESSION: Acute displaced oblique fracture of the distal right femur. RIGHT KNEE XRAYS--PER RADIOLOGIST REPORT AT 2158 FINDINGS: There is an acute, displaced, oblique fracture of the distal femur. Fracture appears to extend through the distal femur to the knee joint. There is medial and posterior subluxation of the distal femur. There is a small knee joint effusion. Degenerative changes of the medial and lateral compartments. IMPRESSION: Acute oblique and displaced fracture of the distal right femur. Reviewed: Reviewed by Me Departure Communication (Admissions) 2107--SPOKE WITH DR. MEJÍA, ORTHOPEDIC SURGEON [facility]. HE WILL REVIEW XRAYS AND CALL ME BACK 2121--SPOKE WITH DR. MEJÍA. HE HAS REVIEWED FILMS. DUE TO COMPLEXITY OF THE FRACTURE AND JOINT INVOLVEMENT, NEEDS HIGHER LEVEL OF CARE THAN WHAT IS AVAILABLE HERE 2124--CALLED [facility]. [facility]ING ORTHOPEDIC SURGEON AND ER PHYSICIAN 2130--SPOKE WITH DR. MAY, ORTHOPEDIC SURGEON, AND DR. MCCARTHY, ER PHYSICIAN. DR. MAY WILL REVIEW XRAYS AND CALL BACK. IMAGES CLOUDED TO [facility] 2218--CALLED [facility]. THEY WILL CONTACT DR. MAY AND CALL BACK 2222--[facility] CALLED. DR. MAY HAS NOT BEEN ABLE TO VIEW IMAGES. WILL HAVE THEM RE-SENT VIA CLOUD. 2226--VAL CALLED BACK. PT HAS BEEN ACCEPTED FOR TRANSFER BY DR. HARRIS, ER PHYSICIAN. PT TO GO TO ER -[facility] IS NOT AVAILABLE FOR TRANSFERS TONIGHT. ER STAFF ATTEMPTING TO ARRANGE TRANSPORTATION FOR PT. NO GROUND TRANSPORTATION IS AVAILABLE, [employer] [facility] WILL BE TRANSPORTING PT. 2324--[facility] HERE FOR TRANSPORT Impression Primary Impression: Closed comminuted intra-articular fracture of distal end of right femur Additional Impressions: Fall from standing TRIPPED ON CURB Hypertension UTI (urinary tract infection) Disposition: 02 XFER SHT-TRM HOSP Condition: Stable Transfer Transfer Reason: Exceeds level of care Transfer Facility: [facility] [place] Departure-Patient Inst. Referrals: AKANKSHA POLANCO DO (PCP/Family) Primary Care Physician JANETTE RAMAN DO Jan 13, 2023 19:54
[2023-01-13 19:59] LABS: BASOPHILS % (AUTO) 1 % (0-10); EOSINOPHILS # (AUTO) 0.3 10^3/uL (0.0-0.3); EOSINOPHILS % (AUTO) 3 % (0-10); HEMATOCRIT 41 % (35-52); HEMOGLOBIN 13.6 g/dL (11.5-16.0); LYMPHOCYTES # (AUTO) 3.3 10^3/uL (1.0-4.0); LYMPHOCYTES % (AUTO) 41 % (12-44); MEAN CORPUSCULAR HEMOGLOBIN 31 pg (25-34); MEAN CORPUSCULAR HGB CONC 33 g/dL (32-36); MEAN CORPUSCULAR VOLUME 93 fL (80-99); MONOCYTES # (AUTO) 0.7 10^3/uL (0.0-1.0); MONOCYTES % (AUTO) 8 % (0-12); NEUTROPHILS # (AUTO) 3.8 10^3/uL (1.8-7.8); NEUTROPHILS % (AUTO) 47 % (42-75); PLATELET COUNT 208 10^3/uL (130-400)
[2023-01-13] MEDS ORDERED: LACTATED RINGERS 1,000 ML IV ONE (20:00)
[2023-01-13] MEDS ORDERED: LIDOCAINE UROJET 2% GEL 10 ML PKG TOP ONE (20:00)
[2023-01-13 20:16] LABS: CLARITY,URINE CLEAR; COLOR,URINE YELLOW; GLUCOSE, URINE (UA) NEGATIVE (NEGATIVE); KETONES,URINE NEGATIVE (NEGATIVE); PROTEIN,URINE TRACE (NEGATIVE)
[2023-01-13 20:17] LABS: BACTERIA,URINE LARGE /HPF; BILIRUBIN,URINE NEGATIVE (NEGATIVE); HYALINE CASTS, URINE RARE /LPF; LEUKOCYTE ESTERASE ,URINE 2+ (NEGATIVE); NITRITE,URINE POSITIVE (NEGATIVE); SQUAMOUS EPITHELIAL CELL,UR 0-2 /HPF; WBC,URINE 50-100 /HPF
[2023-01-13] MEDS ORDERED: fentaNYL INJECTION 100 MCG/2 ML VIAL IVP ONE ×2 (20:30→23:45)
[2023-01-13] MEDS ORDERED: cefTRIAXone IV/IM 1,000 MG in NS (IVPB) 50 ML 50 ML IV ONE (20:30)
[2023-01-13 20:40] LABS: ALANINE AMINOTRANSFERASE 8 U/L (0-55); ALBUMIN 4.4 GM/DL (3.2-4.5); ALKALINE PHOSPHATASE 88 U/L (40-136); BILIRUBIN,TOTAL 0.5 MG/DL (0.1-1.0); BUN/CREATININE RATIO 22; CALCIUM 9.5 MG/DL (8.5-10.1); CARBON DIOXIDE 19 MMOL/L (21-32); CHLORIDE 111 MMOL/L (98-107); CREATININE SERUM 0.98 MG/DL (0.60-1.30); GFR ESTIMATED 58; GLUCOSE 109 MG/DL (70-105); POTASSIUM 3.6 MMOL/L (3.6-5.0); SODIUM 142 MMOL/L (135-145); TOTAL PROTEIN 6.9 GM/DL (6.4-8.2)
--- NOTE | 2023-01-13 21:14 | Diagnostic Imaging Report ---
EXAMINATION: CT thoracic and lumbar spine without contrast. TECHNIQUE: Multiple contiguous axial images were obtained through the thoracic and lumbar spine without the use of intravenous contrast. Sagittal and coronal reformations were then performed. All CT scans use one or more of the following dose optimizing techniques: automated exposure control, MA and/or KvP adjustment based on patient size and exam type or iterative reconstruction. HISTORY: Back pain after injury. COMPARISON: None available. FINDINGS: The alignment of the thoracic and lumbar spine is normal. Vertebral body heights are normal and no fracture is seen. No significant facet hypertrophy or perched facets. Multilevel disc height loss within the lumbar spine. Degenerative changes of the spine with multilevel lumbar spondylosis. Limited views of the soft tissues show no abnormality. Vascular calcifications of the aorta without aneurysm. Atelectasis or fibrotic changes of the visualized lungs. IMPRESSION: No acute osseous abnormality of the thoracic or lumbar spine. Dictated by: Dictated on workstation # [id number]
--- NOTE | 2023-01-13 21:15 | Diagnostic Imaging Report ---
EXAMINATION: Chest 1 view. HISTORY: Chest pain after fall. COMPARISON: 01/07/2021. FINDINGS: Heart size is enlarged. The lungs are clear without consolidation, pleural effusion, or pneumothorax. The osseous structures are intact. IMPRESSION: No acute radiographic abnormality in the chest. Dictated by: Dictated on workstation # [id number]
--- NOTE | 2023-01-13 21:34 | Diagnostic Imaging Report ---
EXAMINATION: Right femur radiographs. EXAM DATE: 01/13/2023 9:10 PM COMPARISON: None available. HISTORY: Leg pain. TECHNIQUE: 3 views. FINDINGS: There is an acute, oblique, displaced fracture of the distal right femur. There is medial and posterior subluxation of the distal femur. The proximal right femur and right hip joint are unremarkable. Lucency along the fracture site within the right leg, likely edema or hematoma. IMPRESSION: Acute displaced oblique fracture of the distal right femur. Dictated by: Dictated on workstation # [id number]
--- NOTE | 2023-01-13 21:35 | Diagnostic Imaging Report ---
EXAMINATION: Right knee radiographs. EXAM DATE: 01/13/2023 9:10 PM COMPARISON: None available. HISTORY: Knee pain. TECHNIQUE: 3 views. FINDINGS: There is an acute, displaced, oblique fracture of the distal femur. Fracture appears to extend through the distal femur to the knee joint. There is medial and posterior subluxation of the distal femur. There is a small knee joint effusion. Degenerative changes of the medial and lateral compartments. IMPRESSION: Acute oblique and displaced fracture of the distal right femur. Dictated by: Dictated on workstation # [id number]
--- NOTE | 2023-01-13 21:36 | Diagnostic Imaging Report ---
EXAMINATION: Pelvis and right hip radiographs. EXAM DATE: 01/13/2023 9:10 PM COMPARISON: None available. HISTORY: Pelvis and right hip pain. TECHNIQUE: 3 views. FINDINGS: There is no acute fracture, dislocation, or destructive osseous process. The joint spaces are normal. The soft tissues are normal. IMPRESSION: No acute osseous abnormality. Dictated by: Dictated on workstation # [id number]
--- NOTE | 2023-01-13 21:50 | Diagnostic Imaging Report ---
EXAMINATION: CT head and CT cervical spine without contrast. TECHNIQUE: Multiple contiguous axial images were obtained through the brain and cervical spine without the use of intravenous contrast. Sagittal and coronal reformations through the cervical spine were then performed. All CT scans use one or more of the following dose optimizing techniques: automated exposure control, MA and/or KvP adjustment based on patient size and exam type or iterative reconstruction. HISTORY: Head and neck pain after injury. COMPARISON: 09/17/2022. FINDINGS: HEAD: Mild diffuse cerebral volume loss with proportional enlargement of the ventricles and sulci. Mild hypodensities throughout the supratentorial white matter of both cerebral hemispheres. No acute intracranial hemorrhage or abnormal extra-axial fluid collections are present. Calcification of the intracranial ICAs. No hyperdense vessel. The calvarium is intact. The mastoid air cells are clear. The visualized paranasal sinuses are clear. The orbits are normal. C-SPINE: Vertebral body height and alignment are preserved. No acute fracture, dislocation, or destructive osseous process. Multilevel facet hypertrophy without perched facets. There is multilevel cervical spondylosis. The paraspinous soft tissues are normal. The visualized thyroid gland is normal. The visualized lung apices are normal. IMPRESSION: 1. No acute intracranial abnormality. Chronic microangiopathy and volume loss. 2. Degenerative changes of the cervical spine without acute osseous abnormality. Dictated by: Dictated on workstation # [id number]
[2023-01-13] MEDS ORDERED: fentaNYL INJECTION 100 MCG/2 ML VIAL ONE (23:32)
== END 2023-01-13 23:45 | disposition short-term general hospital (02) ==
LOC: EDUNIT# 19:45 → ER 19:47
DX: S72.401A Unspecified fracture of lower end of right femur, initial encounter for closed fracture (principal); I10 Essential (primary) hypertension; N39.0 Urinary tract infection, site not specified; E66.9 Obesity, unspecified; Z68.29 Body mass index [BMI] 29.0-29.9, adult; W10.1XXA Fall (on)(from) sidewalk curb, initial encounter; Y93.01 Activity, walking, marching and hiking
CPT/HCPCS: 51702; 70450; 71045; 72125; 72128; 72131; 73502; 73552; 73562; 80053; 81000; 85025; 85610; 85730; 87088; 93041; 96361; 96365; 96375; 96376; 99285; G0480; 36415; 80320; 87077; 87186